=== PATIENT | male | born 1935 | race Asian ===

== ENCOUNTER 2018-01-08 15:46 | Inpatient (IN) | payer OTHER, MEDICAID, MEDICARE ==
[~2018-01-08] VITALS: Ht 154.9 cm; Wt 55.0 kg
[2018-01-08] VITALS (8 sets, daily range): BP systolic 133–159; BP diastolic 63–95; PULSE 70–105; RESP 16–20; TEMP 98.2; O2SAT 95–99
[~2018-01-08 15:46] MED LIST: AUGM875 PO; MECL25 PO; SIMV20 PO; TRIA37.512 PO
[2018-01-08] MEDS ORDERED: SODIUM CHLOR 0.9% 1000 ML INJ 1,000 ML IV SCH ×2 (16:05→21:00)
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
[2018-01-08] MEDS ORDERED: SODIUM CHLORIDE 0.9% FLUSH 10 ML FLUSH IV FLUSH PRN ×2 (16:15→20:30)
[2018-01-08 17:18] LABS: AUTOMATED NEUTROPHIL # 8.2 TH/MM3 (1.8-7.7); BASOPHIL # 0.1 TH/MM3 (0-0.2); BASOPHIL % 0.7 % (0.0-2.0); EOSINOPHIL # 0.3 TH/MM3 (0-0.4); EOSINOPHIL % 2.9 % (0.0-4.0); LYMPH % 5.4 % (9.0-44.0); LYMPHOCYTE # 0.5 TH/MM3 (1.0-4.8); MEAN CELL VOLUME 88.4 FL (80.0-100.0); MEAN CORPUSCULAR HEMOGLOBIN 28.6 PG (27.0-34.0); MEAN CORPUSCULAR HGB CONC 32.4 % (32.0-36.0); MEAN PLATELET VOLUME 9.4 FL (7.0-11.0); MONO % 5.5 % (0.0-8.0); MONOCYTE # 0.5 TH/MM3 (0-0.9); NEUT % 85.5 % (16.0-70.0); PLATELET COUNT 153 TH/MM3 (150-450); RED BLOOD COUNT 4.19 MIL/MM3 (4.50-5.90); RED CELL DISTRIBUTION WIDTH 13.4 % (11.6-17.2); WHITE BLOOD COUNT 9.6 TH/MM3 (4.0-11.0)
--- NOTE | 2018-01-08 17:22 | RADRPT ---
EXAM DATE: 01/08/2018 4:54 PM EDT AGE/SEX: 82 years / Male INDICATIONS: Altered mental status. CLINICAL DATA: This is the patient's initial encounter. Patient reports that signs and symptoms have been present for 1 day and indicates a pain score of Nonresponsive. MEDICAL/SURGICAL HISTORY: Hypertension. Cardiovascular disease. None. RADIATION DOSE: 35.05 CTDI (mGy) COMPARISON: [facility] [place], CT BRAIN W/O CONTRAST, 09/17/2010. . TECHNIQUE: CT of the head without contrast. Using automated exposure control and adjustment of the mA and/or kV according to patient size, radiation dose was kept as low as reasonably achievable to ob tain optimal diagnostic quality images. FINDINGS: Cerebrum: The ventricles are normal for age. No evidence of midline shift, mass lesion, hemorrhage or acute infarction. No extraaxial fluid collections are seen. Posterior Fossa: The cerebellum and brainstem are intact. The 4th ventricle is midline. The cerebe llopontine angle is unremarkable. Extracranial: The visualized portion of the orbits is intact. Skull: The calvaria is intact. No evidence of skull fracture. Mucous retention cyst left maxillary sinus. Mucoperiosteal thickening ethmoid sinuses and right maxillary sinus. CONCLUSION: 1. Negative for acute process Electronically signed by: Ad Garcia MD 01/08/2018 5:20 PM EDT
[2018-01-08 17:28] LABS: ALBUMIN 3.7 GM/DL (3.4-5.0); ALT (GPT) 25 U/L (12-78); AST (GOT) 25 U/L (15-37); BICARBONATE 20.4 MEQ/L (21.0-32.0); BLOOD UREA NITROGEN 32 MG/DL (7-18); CALCIUM 8.2 MG/DL (8.5-10.1); CHLORIDE 111 MEQ/L (98-107); CREATININE 2.36 MG/DL (0.60-1.30); GLOMERULAR FILTRATION RATE 26 ML/MIN (>89); GLUCOSE,RANDOM 110 MG/DL (74-106); SODIUM (NA) 142 MEQ/L (136-145)
[2018-01-08 17:38] LABS: BILIRUBIN, URINE NEG (NEG); BLOOD, URINE SMALL (NEG); GLUCOSE,URINE NEG (NEG); HYALINE CAST, URINE 15 /lpf (RARE); KETONE, URINE TRACE mg/dL (NEG); MUCUS URINE FEW /lpf (OCC); NITRITE,URINE NEG (NEG); URINE COLOR YELLOW (YELLW/STRAW); URINE LEUKOCYTE ESTERASE TRACE (NEG)
[2018-01-08 17:38] LABS: ALKALINE PHOSPHATASE 47 U/L (45-117); TOTAL BILIRUBIN ADULT 0.5 MG/DL (0.2-1.0)
[2018-01-08] MEDS ORDERED: ASPIRIN 81 MG CHEW TAB CHEW ONE (17:45)
--- NOTE | 2018-01-08 18:51 | RADRPT ---
EXAM DATE: 01/08/2018 6:25 PM EDT AGE/SEX: 82 years / Male INDICATIONS: Chest pain CLINICAL DATA: This is the patient's initial encounter. Patient reports that signs and symptoms have been present for 1 day and indicates a pain score of 0/10. MEDICAL/SURGICAL HISTORY: . Hypertension. Cardiovascular disease . COMPARISON: [facility], XR CHEST PA AND LAT, 05/27/2014. . FINDINGS: Portable AP view of the chest demonstrates a normal-sized cardiac silhouette. No effusion, consolidat ion, or pneumothorax is identified. The bones and soft tissues demonstrate no acute finding. EKG line s overlie the patient. There is severe calcification of the aorta. CONCLUSION: No acute cardiopulmonary abnormality is identified. There is severe atherosclerotic disease of the ao rta. Electronically signed by: Joshua Ludwig MD 01/08/2018 6:50 PM EDT
[2018-01-08] MEDS ORDERED: MORPHINE SULFATE 4 MG/ML INJ IV PUSH PRN (20:30)
[2018-01-08] MEDS ORDERED: ACETAMINOPHEN/HYDROcodone 325 MG/7.5 MG TAB PO PRN (20:30)
[2018-01-08] MEDS ORDERED: ACETAMINOPHEN 500 MG CPLT PO PRN (20:30)
[2018-01-08] MEDS ORDERED: HEPARIN SODIUM - SQ 10,000 UNITS/ML VIAL SQ SCH (21:00)
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
[2018-01-08] MEDS: SODIUM CHLORIDE 0.9% FLUSH 10 ML FLUSH IV FLUSH SCH (22:46)
[2018-01-08 23:17] LABS: TROPONIN I 3.96 NG/ML (0.02-0.05)
[2018-01-09] VITALS (15 sets, daily range): BP systolic 142–163; BP diastolic 78–84; PULSE 72–112; RESP 16–18; TEMP 97.4–98.3; O2SAT 98
[2018-01-09] MEDS ORDERED: HEPARIN-D5W 25,000 U/250 ML 250 ML IV PRN
[2018-01-09] MEDS ORDERED: HEPARIN SODIUM - IV 10,000 UNITS/10 ML VIAL IV PUSH ONE
[2018-01-09] MEDS ORDERED: HEPARIN SODIUM - IV 10,000 UNITS/10 ML VIAL IV PUSH PRN ×2 (06:00)
[2018-01-09 06:37] LABS: AUTOMATED NEUTROPHIL # 4.6 TH/MM3 (1.8-7.7); BASOPHIL % 0.7 % (0.0-2.0); EOSINOPHIL # 0.2 TH/MM3 (0-0.4); EOSINOPHIL % 3.6 % (0.0-4.0); HEMATOCRIT 36.1 % (39.0-51.0); HEMOGLOBIN 11.6 GM/DL (13.0-17.0); LYMPH % 13.7 % (9.0-44.0); LYMPHOCYTE # 0.9 TH/MM3 (1.0-4.8); MEAN CELL VOLUME 87.8 FL (80.0-100.0); MEAN CORPUSCULAR HEMOGLOBIN 28.2 PG (27.0-34.0); MEAN CORPUSCULAR HGB CONC 32.1 % (32.0-36.0); MEAN PLATELET VOLUME 9.5 FL (7.0-11.0); MONO % 10.7 % (0.0-8.0); MONOCYTE # 0.7 TH/MM3 (0-0.9); NEUT % 71.3 % (16.0-70.0); PLATELET COUNT 150 TH/MM3 (150-450); RED BLOOD COUNT 4.11 MIL/MM3 (4.50-5.90); RED CELL DISTRIBUTION WIDTH 13.4 % (11.6-17.2); WHITE BLOOD COUNT 6.5 TH/MM3 (4.0-11.0)
[2018-01-09 07:06] LABS: BICARBONATE 20.3 MEQ/L (21.0-32.0); CALCIUM 7.7 MG/DL (8.5-10.1); CREATININE 1.53 MG/DL (0.60-1.30)
[2018-01-09 07:14] LABS: TROPONIN I 6.2 NG/ML (0.02-0.05)
--- NOTE | 2018-01-09 07:24 | EKG ---
Date Performed: 01/09/2018 Time Performed: 04:03:10 PTAGE: 82 years EKG: Sinus rhythm with borderline 1st degree A-V block Lead(s) unsuitable for analysis: V6 Leftward axis Poor R wave p rogression - probable normal variant Borderline ECG Compared to prior electrocardiogram, No significa nt changes are seen although V6 is not available. PREVIOUS TRACING : 01/08/2018 22.19 DOCTOR: Daniele Garcia Interpretating Date/Time 01/09/2018 07:22:57
[2018-01-09] MEDS: SODIUM CHLORIDE 0.9% FLUSH 10 ML FLUSH IV FLUSH SCH (09:00)
--- NOTE | 2018-01-09 11:25 | HHI.PR ---
Subjective Remarks The patient was laying comfortably in bed. Phone chalker soles was utilized. The patient's son was at the bedside. The patient stated that he was in no pain or discomfort in that his heart was strong. He says he would be willing to stay 1 more day in the hospital but wants to go home after that. No acute complaints at this time. Objective Vitals Vital Signs Date Time Temp Pulse Resp B/P (MAP) Pulse Ox O2 Delivery O2 Flow Rate FiO2 01/09/18 07:05 98.3 112 16 149/78 (101) 98 01/09/18 05:00 75 01/09/18 04:00 74 01/09/18 03:27 98.1 72 18 142/81 (101) 98 01/09/18 03:00 74 01/09/18 02:00 74 01/09/18 01:08 01/09/18 01:00 97.4 83 18 163/84 (110) 98 01/08/18 23:30 70 16 151/70 (97) 99 Nasal Cannula 1.00 01/08/18 23:00 72 16 150/68 (95) 99 Nasal Cannula 2.00 01/08/18 20:30 100 17 147/95 (112) 97 Room Air 01/08/18 19:30 102 18 159/84 (109) 99 Room Air 01/08/18 18:00 93 18 150/74 (99) 98 Room Air 01/08/18 17:00 96 18 139/66 (90) 98 Room Air 01/08/18 16:07 105 20 133/63 (86) 95 Room Air 01/08/18 16:05 98.2 01/08/18 16:05 98 Nasal Cannula 2.00 I/O 01/08/18 01/08/18 01/08/18 01/09/18 01/09/18 01/09/18 07:00 15:00 23:00 07:00 15:00 23:00 Intake Total 1000 ml 0 ml Output Total 200 ml Balance 1000 ml -200 ml Intake Oral 0 ml IV Total 1000 ml Output Urine Total 200 ml Result Diagram: 01/09/18 0510 01/09/18 0510 Imaging Last Impressions Head CT 01/08/18 0000 Signed Impressions: CONCLUSION: 1. Negative for acute process Chest X-Ray 01/08/18 0000 Signed Impressions: CONCLUSION: No acute cardiopulmonary abnormality is identified. 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 Objective Remarks GENERAL: No distress. SKIN: No rashes, ecchymoses or lesions. Cool and dry. HEAD: Atraumatic. Normocephalic. No temporal or scalp tenderness. EYES: Pupils equal round and reactive. Extraocular motions intact. No scleral icterus. No injection or drainage. ENT: Nose without bleeding, purulent drainage or septal hematoma. Throat without erythema, tonsillar hypertrophy or exudate. Uvula midline. Airway patent. NECK: Trachea midline. No JVD or lymphadenopathy. Supple, nontender, no meningeal signs. CARDIOVASCULAR: Regular rate and rhythm. Mild murmur appreciated. RESPIRATORY: Clear to auscultation. Breath sounds equal bilaterally. No wheezes , rales, or rhonchi. GASTROINTESTINAL: Abdomen soft, non-tender, nondistended. No hepato-splenomegaly , or palpable masses. No guarding. MUSCULOSKELETAL: Extremities without clubbing, cyanosis, or edema. No joint tenderness, effusion, or edema noted. No calf tenderness. Negative Homans sign bilaterally. NEUROLOGICAL: Awake and alert. Cranial nerves II through XII intact. Motor and sensory within normal limits. Five out of 5 muscle strength in all muscle groups. Normal speech. A/P Assessment and Plan NSTEMI Patient denies any chest pain. Troponin elevated up to 6.2. EKG significant for sinus tachycardia without ST segment elevation or depression. - continue heparin drip. - consulted cardiology. Likely cath today. - continue ASA. Add Lopressor. - check lipid profile, A1c. Acute kidney injury BUN/creatinine 32/2.36. Chronic component as patient's creatinine was 1.39 on . - IV fluid hydration. - Monitor renal function. Altered mental status Likely secondary to above. - IV fluid hydration. HTN Blood pressure has been elevated. - add Lopressor. - Vasotec as needed. PPx: Heparin Rickey Hodges DO Jan 09, 2018 11:25
[2018-01-09] MEDS ORDERED: DEXT 5%-NACL 0.45% 1000 ML INJ 1,000 ML IV SCH (11:30)
[2018-01-09] MEDS ORDERED: METOPROLOL TARTRATE 25 MG TAB PO SCH (12:00)
[2018-01-09] MEDS ORDERED: ASPIRIN EC 81 MG TABEC PO SCH (12:00)
[2018-01-09 13:27] LABS: CHOLESTEROL 204 MG/DL (120-200); TRIGLYCERIDES 89 MG/DL (42-150)
[2018-01-09 13:28] LABS: HDL CHOLESTEROL 45.3 MG/DL (40.0-60.0); LDL CHOLESTEROL 141 MG/DL (0-99)
--- NOTE | 2018-01-09 13:41 | EKG ---
Date Performed: 01/08/2018 Time Performed: 22:19:56 PTAGE: 82 years EKG: Sinus rhythm BORDERLINE LEFT AXIS DEVIATION BORDERLINE ECG Compared to prior electrocardiogram, Nonspecific ST an d T wave abnormalities are less marked . PREVIOUS TRACING : 01/08/2018 16.18 DOCTOR: Daniele Garcia Interpretating Date/Time 01/09/2018 13:39:55
[2018-01-09] MEDS ORDERED: CLOPIDOGREL 300 MG TAB PO ONE (13:45)
[2018-01-09] MEDS ORDERED: PRAVASTATIN SOD 40 MG TAB PO SCH (13:45)
[2018-01-09] MEDS ORDERED: METO25TA3 PO (13:47)
[2018-01-09] MEDS ORDERED: ECASA81 PO (13:47)
[2018-01-09] MEDS ORDERED: PRAV40TA PO (13:47)
[2018-01-09] MEDS ORDERED: PLAV75TA29 PO (13:47)
--- NOTE | 2018-01-09 13:48 | PD.AMA ---
Against Medical Advice Note Diagnosis: (1) NSTEMI (non-ST elevated myocardial infarction) (2) Acute kidney injury Discharge Disposition: Against Medical Advice Pt Condition on Discharge: Guarded Recommended Treatment Course Cardiac catheterization, medication adjustments, cardiac monitoring AMA Statement Patient Luz Maria Castro has decided to leave the hospital against medical advice. This patient has the capacity to refuse care and understands the risks of leaving, including permanent disability and/or , and has had an opportunity to ask questions about his condition. The patient has been informed that he may return for care at any time, and follow up has been arranged/ advised. Rickey Hodges DO Jan 09, 2018 13:48
--- NOTE | 2018-01-09 13:48 | HHI.DCPOC ---
Discharge Care Plan Diagnosis: (1) Acute kidney injury (2) NSTEMI (non-ST elevated myocardial infarction) Goals to Promote Your Health * To prevent worsening of your condition and complications * To maintain your health at the optimal level Directions to Meet Your Goals Take your medications as prescribed Follow your dietary instruction Follow activity as directed Keep your appointments as scheduled Take your immunizations and boosters as scheduled If your symptoms worsen call your PCP, if no PCP go to Urgent Care Center or Emergency Room Smoking is Dangerous to Your Health. Avoid second hand smoke Call the 24-hour hour crisis hotline for domestic abuse at Rickey Hodges DO Jan 09, 2018 13:48
[2018-01-09 14:14] LABS: HEMOGLOBIN A1C 5.8 % (4.3-6.0)
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
[2018-01-10] MEDS ORDERED: CLOPIDOGREL 75 MG TAB PO SCH (09:00)
== END 2018-01-09 14:36 | disposition left against medical advice (07) | DRG 281 ==
LOC: NEPC 15:46 → NEDA 18:06 → HCIS 01-09 00:55
PROVIDERS: ADMIT Hospitalist; ATTEND Hospitalist
DX: I21.4 Non-ST elevation (NSTEMI) myocardial infarction (principal); N17.9 Acute kidney failure, unspecified; E86.0 Dehydration; I10 Essential (primary) hypertension; R00.0 Tachycardia, unspecified; E78.00 Pure hypercholesterolemia, unspecified; R41.82 Altered mental status, unspecified; T67.5XXA Heat exhaustion, unspecified, initial encounter; Z86.73 Personal history of transient ischemic attack (TIA), and cerebral infarction without residual deficits; X30.XXXA Exposure to excessive natural heat, initial encounter
CPT/HCPCS: 70450; 71045; 80048; 80053; 80061; 81001; 82550; 82552; 83036; 83605; 84443; 84484; 85025; 85730; 93005; J1644; J7030

== ENCOUNTER 2018-05-05 23:50 | Inpatient (IN) ==
[2018-05-06] MEDS ORDERED: Famotidine PF Inj 20 MG/2 ML Vial IV.PUSH ONE (00:32)
[2018-05-06] MEDS ORDERED: Sod Chloride 0.9% Inj 1,000 ML IV.SIG ONE (00:32)
[2018-05-06 00:58] LABS: Baso % (Auto) 0.6 % (0.0-2.0); Eos # (Auto) 0.3 th/mm3 (0.0-0.4); Eos % (Auto) 4.4 % (0.0-4.0); Hematocrit 37.7 % (39.0-51.0); Hemoglobin 12.5 gm/dL (13.0-17.0); Lymph # (Auto) 1.4 th/mm3 (1.0-4.8); Lymph % (Auto) 18.5 % (9.0-44.0); Mean Corpuscular HGB Conc 33.2 % (32.0-36.0); Mean Corpuscular Volume 87.5 fL (80.0-100.0); Mono # (Auto) 0.5 th/mm3 (0.0-0.9); Mono % (Auto) 6.7 % (0.0-8.0); Neut # (Auto) 5.3 th/mm3 (1.8-7.7); Neut % (Auto) 69.8 % (16.0-70.0); Platelet Count 158 th/mm3 (150-450); Red Cell Distribution Width 13.9 % (11.6-17.2); White Blood Count 7.5 th/mm3 (4.0-11.0)
--- NOTE | 2018-05-06 01:02 | ED ---
HPI General Chief complaint: Nausea/Vomiting/Diarrhea Stated complaint: chest pain/sob Time Seen by Provider: 05/06/18 00:17 Source: family Mode of arrival: EMS Limitations: language barrier History of Present Illness HPI Narrative: Take for the last few days patient has not had much medical care to having chest pain was given nitro and aspirin in the ambulance twelve-lead had shown possible depressions in the V4 5 and 6 that resolved after the nitro sublingual. He is here in the ER still vomiting and nauseous BP elevated and one episode after vomit had brief bardycardic reaction but no AMS no Hypotension, pt has vomitus in the green bag bedside Related Data Home Medications Medication Instructions Recorded Confirmed No Known Home Medications 05/06/18 05/06/18 Allergies Allergy/AdvReac Type Severity Reaction Status Date / Time No Known Allergies Allergy Verified 05/06/18 01:18 Review of Systems ROS: all other systems reviewed are negative [facility] Medical History Medical History HTN (hypertension) (Acute) Surgical History Surgical History No history of previous surgery (Acute) Social History Social History Substance History: No History of Abuse Smoking Status: Never smoker How Often Do You Have a Drink Containing Alcohol: Never Recent Out of Country Travel within the Last 8 Weeks: No Immunization History Tetanus Immunization: Unsure Exam Narrative Exam Narrative: GENERAL: Appears in pain and is vomiting coffee-ground SKIN: Warm and dry. HEAD: Atraumatic. Normocephalic. EYES: Pupils equal and round. No scleral icterus. No injection or drainage. ENT: No nasal bleeding or discharge. Mucous membranes pink and moist. NECK: Trachea midline. No JVD. CARDIOVASCULAR: Regular rate and rhythm. RESPIRATORY: No accessory muscle use. Clear to auscultation. Breath sounds equal bilaterally. GASTROINTESTINAL: Abdomen soft, non-tender, nondistended. Hepatic and splenic margins not palpable. MUSCULOSKELETAL: Extremities without clubbing, cyanosis, or edema. No obvious deformities. NEUROLOGICAL: Awake and alert. No obvious cranial nerve deficits. Motor grossly within normal limits. Five out of 5 muscle strength in the arms and legs. Normal speech. PSYCHIATRIC: Appropriate mood and affect; insight and judgment normal. Course Initial Documented Vital Signs Temperature 98.3 F 05/06/18 00:20 Pulse Rate 77 05/06/18 00:20 Respiratory Rate 18 05/06/18 00:20 Blood Pressure 199/88 H 05/06/18 00:20 Pulse Oximetry 94 L 05/06/18 00:20 Last Documented Vital Signs Temperature 98.3 F 05/06/18 00:20 Pulse Rate 90 05/06/18 04:56 Respiratory Rate 16 05/06/18 04:56 Blood Pressure 165/74 H 05/06/18 04:56 Pulse Oximetry 95 05/06/18 04:56 Medical Decision Making MDM Narrative Medical decision making narrative: EKG unchanged and trop negative and vomit and BP resolved Medical Screen Exam Complete: Yes Emergency Medical Condition: Yes Differential Diagnosis Differential Diagnosis: n/v/d/ viral vs gerd vs food poisoning vs ACS vs myocardial ischemia , other Medical Records Medical records reviewed: Yes I reviewed the patient's medical records. Lab Data Lab results reviewed: Yes I reviewed the patient's lab results. Result diagrams: 05/06/18 00:30 05/06/18 00:30 Lab Results 05/06/18 05/06/18 Range/Units 00:30 00:30 WBC 7.5 (4.0-11.0) th/mm3 RBC 4.30 L (4.50-5.90) mil/mm3 Hgb 12.5 L (13.0-17.0) gm/dL Hct 37.7 L (39.0-51.0) % MCV 87.5 (80.0-100.0) fL MCH 29.0 (27.0-34.0) pg MCHC 33.2 (32.0-36.0) % RDW 13.9 (11.6-17.2) % Plt Count 158 (150-450) th/mm3 MPV 9.0 (7.0-11.0) fL Neut % (Auto) 69.8 (16.0-70.0) % Lymph % (Auto) 18.5 (9.0-44.0) % [place] % (Auto) 6.7 (0.0-8.0) % Eos % (Auto) 4.4 H (0.0-4.0) % Baso % (Auto) 0.6 (0.0-2.0) % Neut # (Auto) 5.3 (1.8-7.7) th/mm3 Lymph # (Auto) 1.4 (1.0-4.8) th/mm3 [place] # (Auto) 0.5 (0.0-0.9) th/mm3 Eos # (Auto) 0.3 (0.0-0.4) th/mm3 Baso # (Auto) 0.0 (0.0-0.2) th/mm3 WBC Differential . Differential Comment Auto diff final Sodium 139 (136-145) meq/L Potassium 3.9 (3.5-5.1) meq/L Chloride 107 (98-107) meq/L Carbon Dioxide 23.6 (21.0-32.0) meq/L Anion Gap 8 (5-15) meq/L BUN 22 H (7-18) mg/dL Creatinine 1.49 H (0.60-1.30) mg/dL Estimated GFR 45 L (>89) mL/min Random Glucose 189 H (74-106) mg/dL Calcium 7.8 L (8.5-10.1) mg/dL Total Bilirubin 0.4 (0.2-1.0) mg/dL AST 20 (15-37) U/L ALT 28 (12-78) U/L Alkaline Phosphatase 51 (45-117) U/L Troponin I Less than 0.02 L (0.02-0.05) ng/mL Total Protein 7.4 (6.4-8.2) g/dL Albumin 3.7 (3.4-5.0) g/dL Imaging Data Radiologist's impression: Chest X-Ray 05/06/18 00:24 CONCLUSION: No acute cardiopulmonary disease. Discharge Plan Physicians Team ED Provider: Terell Gallo Primary Care Provider: Nicolás Espinoza Attending Provider: Tramaine Pierson Status ED Status: Admitted Observation Patient
[2018-05-06 01:28] LABS: Albumin 3.7 g/dL (3.4-5.0); Anion Gap 8 meq/L (5-15); Aspartate Aminotransferase 20 U/L (15-37); Blood Urea Nitrogen 22 mg/dL (7-18); Calcium 7.8 mg/dL (8.5-10.1); Carbon Dioxide 23.6 meq/L (21.0-32.0); Chloride 107 meq/L (98-107); Glomerular Filtration Rate 45 mL/min (>89); Glucose,Random 189 mg/dL (74-106); Potassium 3.9 meq/L (3.5-5.1); Sodium 139 meq/L (136-145)
--- NOTE | 2018-05-06 01:29 | XR ---
EXAM DATE: 05/06/2018 12:24 AM EDT AGE/SEX: 83 years / Male INDICATIONS: Shortness of breath. CLINICAL DATA: This is the patient's initial encounter. Patient reports that signs and symptoms have been present for 1 day and indicates a pain score of 0/10. MEDICAL/SURGICAL HISTORY: None. None. COMPARISON: [facility] [place], CHEST SINGLE AP, 01/08/2018. . FINDINGS: A single AP view of the chest demonstrates elevation right hemidiaphragm without evidence of mass, in filtrate or effusion. The cardiomediastinal contours are unremarkable. Cardiomegaly. Osseous structu res are intact. CONCLUSION: No acute cardiopulmonary disease. Electronically signed by: Roel Dc MD 05/06/2018 1:28 AM EDT
[2018-05-06 01:33] LABS: Alanine Aminotransferase 28 U/L (12-78); Alkaline Phosphatase 51 U/L (45-117); Total Protein 7.4 g/dL (6.4-8.2)
[2018-05-06] MEDS ORDERED: Labetalol HCl Inj 100 MG/20 ML Vial IV.PUSH ONE (03:04)
[2018-05-06] MEDS ORDERED: Sodium Chlor 0.9% Inj 500 ML IV.SIG ONE (03:22)
[2018-05-06] MEDS: Sod Chloride 0.9% Inj 1,000 ML IV.CONT SCH ×2 (05:00→16:35)
[2018-05-06] MEDS ORDERED: Pantoprazole Inj 40 MG Vial IV.PUSH SCH (07:00)
--- NOTE | 2018-05-06 11:33 | ECG ---
Date Performed: 05/06/2018 Time Performed: 00:40:45 PTAGE: 83 years EKG: Sinus rhythm WITH FIRST DEGREE AV BLOCK MODERATE ST DEPRESSION ABNORMAL ECG Cannot rule out ischemia clinical cor relation recommended (patient appears to have had a GI bleed and may be anemic) PREVIOUS TRACING : 01/09/2018 04.03 DOCTOR: Tramaine Pierson Interpretating Date/Time 05/06/2018 11:31:20
--- NOTE | 2018-05-06 12:02 | P.HP ---
History of Present Illness Primary Care Physician: Nicolás Espinoza MD Chief Complaint: Nausea/vomit and diarrhea, Chest pain and SOB History of Present Illness: This is a pleasant 83 y/o male who was seen in Emergency room due to Chest pain , given nitroglycerine, Aspirin in the Ambulance, twelve-lead had shown possible depressions in the V4 5 and 6 that resolved after the nitro sublingual. He is here in the ER still vomiting and nauseous BP elevated and one episode after vomit had brief bradycardic reaction but no AMS no Hypotension, pt has vomitus in the green bag bedside. was recommended for admission to the Chest pain clinic and after evaluation by sales account specialist Doctor Tramaine Pierson, recommended to be admitted to medical team with the reason of bleeding and Altered mental status, he has Hypertension. Seen in Emergency room discussed with Doctor Moreira and his Daughter and Grandson , present they help with the translation and also with information about the patient History, as per his Daughter the patient started with cough on meaning four days ago took some Guaifenesin until Monday meaning three days ago he was improving but yesterday Monday started with Constipation, and developed Nausea, vomit and Abdominal pain, nausea and vomit, discussed with nurse the patient has copious vomit and blood. Review of Systems All other systems reviewed negative except as stated in HPI PMFSH - History History Provided By: Family Member - Medical History Medical History: Medical History (Last Updated 05/06/18 @ 00:47 by Nara Durham) HTN (hypertension) - Surgical History Surgical History: Surgical History (Last Updated 05/06/18 @ 00:49 by Nara Durham) No history of previous surgery - Family History Family History: Family History (Last Updated 05/06/18 @ 12:52 by Issac Miller MD) Other Family history normal - Tobacco History Smoking Status: Never smoker - Alcohol History How Often Do You Have a Drink Containing Alcohol: Never - Substance Use History Substance History: No History of Abuse - Travel History Recent Travel Out of the Country Within the Last 8 Weeks: No - Immunization History Tetanus Immunization: Unsure Medications and Allergies Active Medications: Active Medications Acetaminophen (Tylenol) 650 mg PO Q4H PRN PRN Reason: FEVER > 100.4 F Sodium Chloride (Ns Inj) 1,000 mls @ 100 mls/hr IV.CONT .Q10H SHANIA Last Infusion: 05/06/18 08:20 Dose: 100 mls/hr Ondansetron HCl (Zofran Inj) 4 mg IV.PUSH Q6H PRN PRN Reason: VOMITING Pantoprazole Sodium (Protonix Inj) 40 mg IV.PUSH Q12H [facility] Last Admin: 05/06/18 08:09 Dose: 40 mg Sodium Chloride (Ns Flush) 2 ml IV.FLUSH UNSCH PRN PRN Reason: FLUSH AFTER USING IV ACCESS Last Admin: 05/06/18 01:08 Dose: 2 ml Sodium Chloride (Ns Flush) 2 ml IV.FLUSH BID [facility] Last Admin: 05/06/18 08:09 Dose: 2 ml Allergies Allergy/AdvReac Type Severity Reaction Status Date / Time No Known Allergies Allergy Verified 05/06/18 01:18 Home Medications Medication Instructions Recorded Confirmed Type No Known Home Medications 05/06/18 05/06/18 History Exam Vital signs: Vital Signs 05/06/18 00:20 05/06/18 00:24 05/06/18 02:27 Temperature 98.3 F Pulse Rate 77 86 Respiratory Rate 18 16 Blood Pressure 199/88 H 212/91 H Pulse Oximetry 94 L 100 95 05/06/18 02:28 05/06/18 04:56 05/06/18 07:11 Temperature Pulse Rate 90 94 H Respiratory Rate 16 16 18 Blood Pressure 165/74 H 163/77 H Pulse Oximetry 95 98 05/06/18 10:00 05/06/18 11:37 05/06/18 11:51 Temperature 98.3 F Pulse Rate 94 H Respiratory Rate 18 20 Blood Pressure 176/81 H 152/78 H Pulse Oximetry 98 Intake & Output 05/05/18 05/06/18 05/06/18 18:59 06:59 18:59 Intake Total 1500 / 1500 Output Total 750 / 750 Balance 1500 / 1500 -750 / -750 Weight 63.503 kg Intake: IV 1500 / 1500 NS Inj 500 ML @ Wide Open IV. 500 / 500 SIG BOLUS ONE Rx#:[id number] Output: Urine 750 / 750 Narrative: GENERAL: moderate distress, due to pain, Headache, dizziness, vomiting coffee ground. SKIN: Warm and dry. HEAD: Atraumatic. Normocephalic. EYES: Pupils equal and round. No scleral icterus. No injection or drainage. ENT: No nasal bleeding or discharge. Mucous membranes dry. NECK: Trachea midline. No JVD. CARDIOVASCULAR: Regular rate and rhythm. RESPIRATORY: No accessory muscle use. Clear to auscultation. Breath sounds equal bilaterally. GASTROINTESTINAL: Abdomen soft, non-tender, nondistended. Hepatic and splenic margins not palpable. MUSCULOSKELETAL: Extremities without clubbing, cyanosis, or edema. No obvious deformities. NEUROLOGICAL: Awake and alert. No obvious cranial nerve deficits. PSYCHIATRIC: Appropriate mood and affect; insight and judgment normal. Results - Labs CBC & Chem 7: 05/06/18 00:30 05/06/18 00:30 Labs: Laboratory Results - last 24 hr 05/06/18 05/06/18 05/06/18 00:30 00:30 05:50 WBC 7.5 RBC 4.30 L Hgb 12.5 L Hct 37.7 L MCV 87.5 MCH 29.0 MCHC 33.2 RDW 13.9 Plt Count 158 MPV 9.0 Neut % (Auto) 69.8 Lymph % (Auto) 18.5 [place] % (Auto) 6.7 Eos % (Auto) 4.4 H Baso % (Auto) 0.6 Neut # (Auto) 5.3 Lymph # (Auto) 1.4 [place] # (Auto) 0.5 Eos # (Auto) 0.3 Baso # (Auto) 0.0 WBC Differential . Differential Comment Auto diff final Sodium 139 Potassium 3.9 Chloride 107 Carbon Dioxide 23.6 Anion Gap 8 BUN 22 H Creatinine 1.49 H Estimated GFR 45 L Random Glucose 189 H Calcium 7.8 L Total Bilirubin 0.4 AST 20 ALT 28 Alkaline Phosphatase 51 Troponin I Less than 0.02 L 0.02 Total Protein 7.4 Albumin 3.7 05/06/18 09:30 WBC RBC Hgb Hct MCV MCH MCHC RDW Plt Count MPV Neut % (Auto) Lymph % (Auto) [place] % (Auto) Eos % (Auto) Baso % (Auto) Neut # (Auto) Lymph # (Auto) [place] # (Auto) Eos # (Auto) Baso # (Auto) WBC Differential Differential Comment Sodium Potassium Chloride Carbon Dioxide Anion Gap BUN Creatinine Estimated GFR Random Glucose Calcium Total Bilirubin AST ALT Alkaline Phosphatase Troponin I 0.03 Total Protein Albumin - Imaging Impressions Chest X-Ray 05/06/18 00:24 CONCLUSION: No acute cardiopulmonary disease. Caprini VTE Risk Assessment Caprini VTE Risk Assessment: Moderate/High Risk (score >= 2) Caprini Risk Assessment Model: Point Value = 1 Point Value = 2 Point Value = 3 Point Value = 5 Age 41-60 Minor surgery BMI > 25 kg/m2 Swollen legs Varicose veins or History of unexplained or recurrent spontaneous Oral contraceptives or hormone replacement Sepsis (< 1 month) Serious lung disease, including pneumonia (< 1 month) Abnormal pulmonary function Acute myocardial infarction Congestive heart failure (< 1 month) History of inflammatory bowel disease Medical patient at bed rest Age 61-74 Arthroscopic surgery Major open surgery (> 45 min) Laparoscopic surgery (> 45 min) Malignancy Confined to bed (> 72 hours) Immobilizing plaster cast Central venous access Age >= 75 History of VTE Family history of VTE Factor V Leiden Prothrombin [id number] Lupus anticoagulant Anticardiolipin antibodies Elevated serum homocysteine Heparin-induced thrombocytopenia Other congenital or acquired thrombophilia Stroke (< 1 month) Elective arthroplasty Hip, pelvis, or leg fracture Acute spinal cord injury (< 1 month) Prophylaxis Regimen: Total Risk Factor Score Risk Level Prophylaxis Regimen 0-1 Low Early ambulation 2 Moderate Order ONE of the following: *Sequential Compression Device (SCD) *Heparin 5000 units SQ BID 3-4 Higher Order ONE of the following medications: *Heparin 5000 units SQ TID *Enoxaparin/Lovenox 40 mg SQ daily (WT < 150 kg, CrCl > 30 mL/min) *Enoxaparin/Lovenox 30 mg SQ daily (WT < 150 kg, CrCl > 10-29 mL/min) *Enoxaparin/Lovenox 30 mg SQ BID (WT < 150 kg, CrCl > 30 mL/min) AND/OR *Sequential Compression Device (SCD) 5 or more Highest Order ONE of the following medications: *Heparin 5000 units SQ TID (Preferred with Epidurals) *Enoxaparin/Lovenox 40 mg SQ daily (WT < 150 kg, CrCl > 30 mL/min) *Enoxaparin/Lovenox 30 mg SQ daily (WT < 150 kg, CrCl > 10-29 mL/min) *Enoxaparin/Lovenox 30 mg SQ BID (WT < 150 kg, CrCl > 30 mL/min) AND *Sequential Compression Device (SCD) Assessment and Plan - Plan 1. GI bleed, patient with Abdominal pain, nausea and vomit, dehydration. not know cause for his GI bleed Given Protonix 40 mg yesterday night, will give one dose of Protonix 40 mg now and continue Protonix drip GI specialist consult placed and discussed face to face CT abdomen and Pelvis with contrast NPO H and H now and CMP at this time WBC 7.5, Hemoglobin 12.5 initially, Platelet count 158, Creatinine 1.49 2. Hypertension Uncontrolled on admission continue Home medicines and Hydralazine as needed. 3. BRANDY probable almost at baseline, will give IV fluids and follow renal function, Creatinine 1.49 following CMP and H and H now. 4. Cough initial I want to rule out pathology he had clear lungs on CXR will follow with CT chest. 5. Dehydration giving one bolus of 500 ml now and continue 100 ml per hour. 6. CAD status post recent diagnosis with NSTEMI but the patient refused Cardiac Cath. Cardiology saw the patient who complaint of chest pain, will continue Cardiac enzymes, first three sets negative latest 0.06 equivocal due to dehydration. DVT prophylaxis with SCDs. Contraindicated anticoagulation due to active GI bleed PT evaluation store operations manager consult Consult GI specialist Code Status: Full code. Discussed Condition With: Patient and nurse. Daughter Mrs. Brittney Castro leaving her phone number [phone] 's Daughter phone number [phone] GI specialist Doctor Randy Discharge Planning: Once cleared by specialists.
[2018-05-06] MEDS ORDERED: Pantoprazole Inj 40 MG Vial IV.PUSH ONE (12:36)
[2018-05-06] MEDS ORDERED: Diatrizoate Meglum/Diatrizoate Sod Liq 9 ML UDC PO ONE ×2 (12:38→12:50)
[2018-05-06] MEDS ORDERED: Bisacodyl 10 MG Supp RECTAL PRN (12:39)
[2018-05-06] MEDS ORDERED: Sod Chloride 0.9% Inj 1,000 ML IV.CONT SCH (12:45)
[2018-05-06] MEDS ORDERED: Sodium Chlor 0.9% Inj 500 ML IV.SIG SCH (13:00)
[2018-05-06] MEDS: Pantoprazole Inj 80 MG in Sodium Chlor 0.9% Inj 100 ML IV.CONT SCH ×2 (13:57→23:46)
[2018-05-06 14:31] LABS: Hematocrit 33.7 % (39.0-51.0); Hemoglobin 11.3 gm/dL (13.0-17.0)
[2018-05-06 14:54] LABS: Albumin 3.3 g/dL (3.4-5.0); Calcium 7.1 mg/dL (8.5-10.1); Carbon Dioxide 24.6 meq/L (21.0-32.0)
[2018-05-06 15:15] LABS: Total Protein 6.7 g/dL (6.4-8.2); Troponin I 0.11 ng/mL (0.02-0.05)
--- NOTE | 2018-05-06 16:15 | P.CONGI ---
History of Present Illness Consult date: 05/06/18 Consult reason: Vomiting dark emesis rule out GI bleed, coffee-ground emesis Chief complaint: chest pain N/V History of Present Illness: This is an 83-year-old male who presented to the emergency room initially for chest pain and was treated with nitroglycerin. Positive mild troponin elevation on admission. Patient also noted symptoms of nausea and vomiting as well as 1 emesis bag with dark possibly coffee-ground emesis. Onset of symptoms of nausea vomiting abdominal pain and constipation often known for 1 day, but also notes a history of constipation in the past 1 of the chief complaint is cough times 4 days related to after eating, after drinking, and while at rest. Patient was initially taken guaifenesin multiple times and then was noted was some altered mental status. Labs show current hemoglobin 12.5, normal WBC count 7.5, BUN 22, creatinine 1.49, and initial elevated troponin. CT scan of abdomen pelvis is pending. Gastroenterology was consulted to assist with possible GI bleed, GI symptoms and evaluate plan of care to stabilize this patient. There is her grandson here with patient and according to him patient lives with his aunt, patient's daughter. No known EGD or colonoscopy in years or any family history of colon cancer Review of Systems All other systems reviewed negative except as stated in HPI PMFSH - History History Provided By: Patient, Family Member - Medical History Medical History: Medical History (Last Updated 05/06/18 @ 14:51 by Fabiola Perez RN) HTN (hypertension) Hypercholesterolemia - Surgical History Surgical History: Surgical History (Last Updated 05/06/18 @ 00:49 by Nara Durham) No history of previous surgery - Family History Family History: Family History (Last Updated 05/06/18 @ 12:52 by Issac Miller MD) Other Family history normal - Tobacco History Second Hand Smoke Exposure: No Tobacco Use In Past 30 Days: No Smoking Status: Former smoker Tobacco Type: Cigarettes - Alcohol History How Often Do You Have a Drink Containing Alcohol: Never - Substance Use History Substance History: No History of Abuse - Travel History Recent Travel in the [facility] Within the Last 8 Weeks: No Recent Travel Out of the Country Within the Last 8 Weeks: No - Immunization History Tetanus Immunization: Unsure Medications and Allergies Active Medications: Active Medications Acetaminophen (Tylenol) 650 mg PO Q4H PRN PRN Reason: FEVER > 100.4 F Al Hydroxide/Mg Hydroxide (Milk Of Magnesia Liq) 30 ml PO Q12H PRN PRN Reason: Mild Constipation Bisacodyl (Dulcolax Supp) 10 mg RECTAL DAILY PRN PRN Reason: SEVERE CONSITIPATION Sodium Chloride (Ns Inj) 1,000 mls @ 100 mls/hr IV.CONT .Q10H [facility] Last Infusion: 05/06/18 08:20 Dose: 100 mls/hr Sodium Chloride (Ns Inj) 500 mls @ 0 mls/hr IV.SIG BOLUS SHANIA Pantoprazole Sodium 80 mg/ (Sodium Chloride) 100 mls @ 10 mls/hr IV.CONT CONT [facility] Last Admin: 05/06/18 13:57 Dose: 10 mls/hr Calcium Gluconate 1 gm/ (Dextrose) 110 mls @ 110 mls/hr IV.SIG ONCE ONE Stop: 05/06/18 17:59 Lactulose (Lactulose Liq) 30 ml PO DAILY PRN PRN Reason: SEVERE CONSITIPATION Ondansetron HCl (Zofran Inj) 4 mg IV.PUSH Q4H PRN PRN Reason: VOMITING Last Admin: 05/06/18 14:00 Dose: 4 mg Sennosides (Senokot) 17.2 mg PO Q12H PRN PRN Reason: Moderate Constipation Sodium Chloride (Ns Flush) 2 ml IV.FLUSH UNSCH PRN PRN Reason: FLUSH AFTER USING IV ACCESS Last Admin: 05/06/18 01:08 Dose: 2 ml Sodium Chloride (Ns Flush) 2 ml IV.FLUSH BID [facility] Last Admin: 05/06/18 08:09 Dose: 2 ml Allergies Allergy/AdvReac Type Severity Reaction Status Date / Time No Known Allergies Allergy Verified 05/06/18 01:18 Home Medications Medication Instructions Recorded Confirmed Type No Known Home Medications 05/06/18 05/06/18 History Exam Vital signs: Vital Signs 05/06/18 00:20 05/06/18 00:24 05/06/18 02:27 Temperature 98.3 F Pulse Rate 77 86 Respiratory Rate 18 16 Blood Pressure 199/88 H 212/91 H Pulse Oximetry 94 L 100 95 05/06/18 02:28 05/06/18 04:56 05/06/18 07:11 Temperature Pulse Rate 90 94 H Respiratory Rate 16 16 18 Blood Pressure 165/74 H 163/77 H Pulse Oximetry 95 98 05/06/18 10:00 05/06/18 11:35 05/06/18 11:37 Temperature 98.3 F Pulse Rate 94 H 94 H Respiratory Rate 18 20 Blood Pressure 176/81 H Pulse Oximetry 98 05/06/18 11:51 05/06/18 15:01 Temperature Pulse Rate 84 Respiratory Rate Blood Pressure 152/78 H Pulse Oximetry Intake & Output 05/05/18 05/06/18 05/06/18 18:59 06:59 18:59 Intake Total 1500 / 1500 Output Total 750 / 750 Balance 1500 / 1500 -750 / -750 Weight 63.503 kg 63.503 kg Intake: IV 1500 / 1500 NS Inj 500 ML @ Wide Open IV. 500 / 500 SIG BOLUS ONE Rx#:[id number] Output: Urine 750 / 750 Other: Weight On Admission 63.503 kg - Constitutional no acute distress, thin, cachectic, disheveled, cooperative - Routine HEENT Exam Head: Present: normocephalic ENT: Present: mucous membranes dry - Routine Respiratory Exam Present: accessory muscle use (Even, unlabored) - Routine Cardiovascular Exam Present: S1, S2 - Routine Abdominal Exam Present: soft, normoactive bowel sounds (Soft, no tenderness) - Routine Skin Exam Present: intact, pallor (Pale) Results - Labs CBC & Chem 7: 05/06/18 13:42 05/06/18 13:42 Labs: Laboratory Results - last 24 hr 05/06/18 05/06/18 05/06/18 00:30 00:30 05:50 WBC 7.5 RBC 4.30 L Hgb 12.5 L Hct 37.7 L MCV 87.5 MCH 29.0 MCHC 33.2 RDW 13.9 Plt Count 158 MPV 9.0 Neut % (Auto) 69.8 Lymph % (Auto) 18.5 [place] % (Auto) 6.7 Eos % (Auto) 4.4 H Baso % (Auto) 0.6 Neut # (Auto) 5.3 Lymph # (Auto) 1.4 [place] # (Auto) 0.5 Eos # (Auto) 0.3 Baso # (Auto) 0.0 WBC Differential . Differential Comment Auto diff final Sodium 139 Potassium 3.9 Chloride 107 Carbon Dioxide 23.6 Anion Gap 8 BUN 22 H Creatinine 1.49 H Estimated GFR 45 L Random Glucose 189 H Calcium 7.8 L Prot Corrected Calcium Total Bilirubin 0.4 AST 20 ALT 28 Alkaline Phosphatase 51 Total Creatine Kinase Troponin I Less than 0.02 L 0.02 Total Protein 7.4 Albumin 3.7 05/06/18 05/06/18 05/06/18 09:30 11:29 13:42 WBC RBC Hgb Hct MCV MCH MCHC RDW Plt Count MPV Neut % (Auto) Lymph % (Auto) [place] % (Auto) Eos % (Auto) Baso % (Auto) Neut # (Auto) Lymph # (Auto) [place] # (Auto) Eos # (Auto) Baso # (Auto) WBC Differential Differential Comment Sodium Potassium Chloride Carbon Dioxide Anion Gap BUN Creatinine Estimated GFR Random Glucose Calcium Prot Corrected Calcium Total Bilirubin AST ALT Alkaline Phosphatase Total Creatine Kinase Cancelled Troponin I 0.03 0.06 H Cancelled Total Protein Albumin 05/06/18 05/06/18 13:42 13:42 WBC RBC Hgb 11.3 L Hct 33.7 L MCV MCH MCHC RDW Plt Count MPV Neut % (Auto) Lymph % (Auto) [place] % (Auto) Eos % (Auto) Baso % (Auto) Neut # (Auto) Lymph # (Auto) [place] # (Auto) Eos # (Auto) Baso # (Auto) WBC Differential Differential Comment Sodium 139 Potassium 4.0 Chloride 106 Carbon Dioxide 24.6 Anion Gap 8 BUN 17 Creatinine 1.32 H Estimated GFR 52 L Random Glucose 117 H Calcium 7.1 L* Prot Corrected Calcium 7.3 L* Total Bilirubin 0.5 AST 20 ALT 23 Alkaline Phosphatase 44 L Total Creatine Kinase 170 Troponin I 0.11 H Total Protein 6.7 D Albumin 3.3 L - Imaging Impressions Chest X-Ray 05/06/18 00:24 CONCLUSION: No acute cardiopulmonary disease. Assessment and Plan - Plan 83-year-old male who presented to the emergency room initially for chest pain and was treated with nitroglycerin. Positive mild troponin elevation on admission. Patient also noted symptoms of nausea and vomiting as well as 1 emesis bag with dark possibly coffee-ground emesis. Onset of symptoms of nausea vomiting abdominal pain and constipation often known for 1 day, but also notes a history of constipation in the past 1 of the chief complaint is cough times 4 days related to after eating, after drinking, and while at rest. Patient was initially taken guaifenesin multiple times and then was noted was some altered mental status. Labs show current hemoglobin 12.5, normal WBC count 7.5, BUN 22, creatinine 1.49, and initial elevated troponin. CT scan of abdomen pelvis is pending. Gastroenterology was consulted to assist with possible GI bleed, GI symptoms and evaluate plan of care to stabilize this patient. There is her grandson here with patient and according to him patient lives with his aunt, patient's daughter. No noted EGD or colonoscopy in years GI bleed possible coffee-ground emesis x1 event Mild anemia hemoglobin 12.5, no current obvious bleeding Uncontrolled cough aggravated with drinking eating and even at rest, rule out dysphasia and/or aspiration Elevated troponin, and an initial admission related to chest pain. Patient will need to be evaluated per cardiology and any cardiac event needs to be ruled out before any further GI testing. Abdominal pain history of constipation, CT scan of the abdomen pelvis is pending this too needs to be evaluated for further before any further GI testing is done Plan Diet as tolerated , consult speech therapy to evaluate swallow. Need to rule out any high risk for aspiration, dysphasia. PPI Zofran Bowel regimen Cardiology eval rule out any acute cardiac event CT of the abdomen and pelvis is pending Consider EGD once patient is stable Further recommendations to follow Patient was seen per myself and Dr. Santos, note was written on his behalf
[2018-05-06] MEDS ORDERED: Calcium Gluconate Inj 1 GM in Dextrose 5% in Water Inj 100 ML IV.SIG ONE ×2 (17:00)
--- NOTE | 2018-05-06 18:46 | CT ---
EXAM DATE: 05/06/2018 12:38 PM EDT AGE/SEX: 83 years / Male INDICATIONS: Shortness of breath. CLINICAL DATA: This is the patient's initial encounter. Patient reports that signs and symptoms have been present for 1 day and indicates a pain score of Nonresponsive. MEDICAL/SURGICAL HISTORY: . unobtainable . unobtainable RADIATION DOSE: 5.1 CTDI (mGy) ; Combined studies COMPARISON: [facility], CHEST 1V SINGLE AP, 05/06/2018. . TECHNIQUE: Multiple contiguous axial images were obtained through the chest during bolus infusion of 95 ml Omnipaque 350 (iohexol) nonionic water-soluble contrast as a cumulative dose for multiple exa ms. Images were obtained in suspended respiration using multiple row detector helical technique. U sing automated exposure control and adjustment of the mA and/or kV according to patient size, radiati on dose was kept as low as reasonably achievable to obtain optimal diagnostic quality images. DICOM format image data is available electronically for review and comparison. FINDINGS: Lung: Airspace consolidation at the right lung base with air bronchograms. Pleura: No effusion, significant pleural thickening or pneumothorax. Mediastinum: Borderline cardiomegaly. Prominent coronary artery calcifications. Very central pulmona ry arteries are patent. Ectasia of the ascending thoracic aorta measuring up to 3.9 cm. No significan t mediastinal or hilar adenopathy. Osseous Structures: No abnormal focal lytic or blastic bony lesions. Soft Tissues: Soft tissues are unremarkable. No significant axillary adenopathy. Other: Please see CT abdomen report for abdominal findings. CONCLUSION: 1. Focal airspace consolidation with air bronchograms in the right lung base. Cannot exclude pneumon ia or aspiration in the appropriate clinical setting. 2. Borderline cardiomegaly with prominent coronary artery calcifications. 3. Very central pulmonary arteries are patent without evidence for central pulmonary artery embolism . Please note that this is not a PE protocol CT exam. Electronically signed by: Ronen Daly MD 05/06/2018 6:45 PM EDT
--- NOTE | 2018-05-06 18:50 | CT ---
EXAM DATE: 05/06/2018 12:00 AM EDT AGE/SEX: 83 years / Male INDICATIONS: Abdominal pain. CLINICAL DATA: This is the patient's initial encounter. Patient reports that signs and symptoms have been present for 1 day and indicates a pain score of Nonresponsive. MEDICAL/SURGICAL HISTORY: . unobtainable . unobtainable ORAL CONTRAST: Partial prescribed oral contrast ingested. RADIATION DOSE: 5.1 CTDI (mGy) ; Combined studies COMPARISON: No prior exams available for comparison. TECHNIQUE: Multiple contiguous axial images were obtained through the abdomen and pelvis following b olus infusion of 95 ml Omnipaque 350 (iohexol) nonionic water-soluble contrast as a cumulative dose for multiple exams. Partial prescribed oral contrast ingested. Using automated exposure control and adjustment of the mA and/or kV according to patient size, radiation dose was kept as low as reasonab ly achievable to obtain optimal diagnostic quality images. DICOM format image data is available elec tronically for review and comparison. FINDINGS: There is basilar and dependent opacity in the lungs, probably atelectasis. Moderate to severe coronar y artery calcifications. Mild fatty liver. Spleen, adrenals and pancreas unremarkable. Small bilateral renal cysts. No calcified gallstones or biliary ductal dilatation. Mild constipation. No free air or free fluid. N o adenopathy. Atherosclerotic aorta without aneurysm. No acute bony abnormality. CONCLUSION: 1. No acute findings within the abdomen and pelvis. Dependent atelectasis in the lungs. Severe coron sussy calcifications. Mild fatty liver. No obstruction, free fluid or free air. Electronically signed by: Yehuda La MD 05/06/2018 6:49 PM EDT
[2018-05-06] MEDS: Acetaminophen 325 MG Tablet PO PRN (18:59)
[2018-05-06 19:54] LABS: Troponin I 0.16 ng/mL (0.02-0.05)
[2018-05-07] MEDS: Sod Chloride 0.9% Inj 1,000 ML IV.CONT SCH ×3 (05:19→18:18)
[2018-05-07 06:35] LABS: Baso % (Auto) 0.3 % (0.0-2.0); Eos # (Auto) 0.1 th/mm3 (0.0-0.4); Eos % (Auto) 0.8 % (0.0-4.0); Hematocrit 34.4 % (39.0-51.0); Hemoglobin 11.5 gm/dL (13.0-17.0); Lymph # (Auto) 0.9 th/mm3 (1.0-4.8); Lymph % (Auto) 13.2 % (9.0-44.0); Mean Corpuscular HGB Conc 33.5 % (32.0-36.0); Mean Corpuscular Hemoglobin 29.3 pg (27.0-34.0); Mean Corpuscular Volume 87.4 fL (80.0-100.0); Mean Platelet Volume 8.8 fL (7.0-11.0); Mono # (Auto) 0.6 th/mm3 (0.0-0.9); Mono % (Auto) 8.8 % (0.0-8.0); Neut # (Auto) 5.2 th/mm3 (1.8-7.7); Neut % (Auto) 76.9 % (16.0-70.0); Platelet Count 143 th/mm3 (150-450); Red Blood Count 3.94 mil/mm3 (4.50-5.90); Red Cell Distribution Width 13.8 % (11.6-17.2); White Blood Count 6.8 th/mm3 (4.0-11.0)
[2018-05-07 07:29] LABS: Albumin 3.2 g/dL (3.4-5.0); Calcium 7.2 mg/dL (8.5-10.1); Carbon Dioxide 24.7 meq/L (21.0-32.0); Potassium 3.3 meq/L (3.5-5.1); Total Protein 6.5 g/dL (6.4-8.2)
[2018-05-07] MEDS: Pantoprazole Inj 80 MG in Sodium Chlor 0.9% Inj 100 ML IV.CONT SCH ×2 (10:52→20:29)
--- NOTE | 2018-05-07 11:42 | P.CONCA ---
History of Present Illness Service: Cardiology Consult date: 05/07/18 Requesting Physician: Issac Miller Reason for Consult: Cardiac clearance for EGD and colonoscopy Primary Care Provider: Nicolás Espinoza MD Chief Complaint: Nausea/vomit and diarrhea, Chest pain and SOB History of Present Illness: This is a very pleasant 83-year-old male with a history of hypertension and coronary artery disease. Who came to the emergency department with complaints of chest pain, nausea and vomiting. Per his chart he was given a nitro sublingual in route to the emergency department by EMS which relieved his chest pain. He is currently positive for gastrointestinal bleeding. Currently he does complain of mild midsternal chest pain that increases with deep inspiration and left sided chest pain that increases with palpation. He had one episode this morning of chest pain that was relieved by nitro. He denies any palpitations, dizziness, edema or shortness of breath. Review of Systems All other systems reviewed negative except as stated in HPI PMFSH - History History Provided By: Patient, Family Member - Medical History Medical History: Medical History (Last Reviewed 05/07/18 @ 14:48 by Ha Espinosa, PT) HTN (hypertension) Hypercholesterolemia - Surgical History Surgical History: Surgical History (Last Reviewed 05/07/18 @ 14:48 by Ha Espinosa PT) No history of previous surgery - Family History Family History: Family History (Last Reviewed 05/07/18 @ 14:48 by Ha Espinosa, PT) Other Family history normal - Tobacco History Second Hand Smoke Exposure: No Tobacco Use In Past 30 Days: No Smoking Status: Former smoker Tobacco Type: Cigarettes - Alcohol History How Often Do You Have a Drink Containing Alcohol: Never - Substance Use History Substance History: No History of Abuse - Travel History Recent Travel in the [place] Within the Last 8 Weeks: No Recent Travel Out of the Country Within the Last 8 Weeks: No - Immunization History Tetanus Immunization: Unsure Medications and Allergies Allergies Allergy/AdvReac Type Severity Reaction Status Date / Time No Known Allergies Allergy Verified 05/06/18 01:18 Home Medications Medication Instructions Recorded Confirmed Type No Known Home Medications 05/06/18 05/06/18 History Active Medications: Active Medications Acetaminophen (Tylenol) 650 mg PO Q4H PRN PRN Reason: FEVER > 100.4 F Last Admin: 05/06/18 18:59 Dose: 650 mg Al Hydroxide/Mg Hydroxide (Milk Of Magnesia Liq) 30 ml PO Q12H PRN PRN Reason: Mild Constipation Bisacodyl (Dulcolax Supp) 10 mg RECTAL DAILY PRN PRN Reason: SEVERE CONSITIPATION Sodium Chloride (Ns Inj) 1,000 mls @ 100 mls/hr IV.CONT .Q10H [facility] Last Admin: 05/07/18 09:28 Dose: Not Given Sodium Chloride (Ns Inj) 500 mls @ 0 mls/hr IV.SIG BOLUS [facility] Pantoprazole Sodium 80 mg/ (Sodium Chloride) 100 mls @ 10 mls/hr IV.CONT CONT [facility] Last Admin: 05/07/18 10:52 Dose: 10 mls/hr Lactulose (Lactulose Liq) 30 ml PO DAILY PRN PRN Reason: SEVERE CONSITIPATION Nitroglycerin (Nitrostat Sl) 0.4 mg SL Q5M PRN PRN Reason: CHEST PAIN Last Admin: 05/07/18 09:27 Dose: 0.4 mg Ondansetron HCl (Zofran Inj) 4 mg IV.PUSH Q4H PRN PRN Reason: VOMITING Last Admin: 05/06/18 19:00 Dose: 4 mg Sennosides (Senokot) 17.2 mg PO Q12H PRN PRN Reason: Moderate Constipation Sodium Chloride (Ns Flush) 2 ml IV.FLUSH UNSCH PRN PRN Reason: FLUSH AFTER USING IV ACCESS Last Admin: 05/06/18 01:08 Dose: 2 ml Sodium Chloride (Ns Flush) 2 ml IV.FLUSH BID [facility] Last Admin: 05/07/18 11:11 Dose: 2 ml Exam Vital signs: Vital Signs 05/06/18 11:35 05/06/18 11:37 05/06/18 11:51 Temperature 98.3 F Pulse Rate 94 H 94 H Respiratory Rate 20 Blood Pressure 176/81 H 152/78 H Pulse Oximetry 98 05/06/18 15:01 05/06/18 16:00 05/06/18 20:00 Temperature 98.7 F 98.0 F Pulse Rate 84 77 81 Respiratory Rate 18 18 Blood Pressure 169/74 H 170/78 H Pulse Oximetry 95 95 05/06/18 23:00 05/07/18 00:00 05/07/18 01:00 Temperature 97.8 F Pulse Rate 75 74 70 Respiratory Rate 18 Blood Pressure 157/79 H Pulse Oximetry 97 05/07/18 02:00 05/07/18 03:00 05/07/18 03:47 Temperature Pulse Rate 66 63 69 Respiratory Rate 16 Blood Pressure 139/69 Pulse Oximetry 96 05/07/18 04:00 05/07/18 05:00 05/07/18 06:00 Temperature Pulse Rate 64 80 62 Respiratory Rate Blood Pressure Pulse Oximetry 05/07/18 07:00 05/07/18 08:00 05/07/18 09:00 Temperature 98.2 F Pulse Rate 66 89 88 Respiratory Rate 20 Blood Pressure 145/71 H Pulse Oximetry 97 Intake & Output 05/06/18 05/07/18 05/07/18 18:59 06:59 18:59 Intake Total 1323 / 1323 1160 / 1160 100 / 100 Output Total 750 / 750 400 / 400 Balance 573 / 573 760 / 760 100 / 100 Weight 63.503 kg 56 kg Intake: IV 850 / 850 1160 / 1160 100 / 100 Protonix Inj 80 MG In NS Inj 100 / 100 100 / 100 100 ML @ 10 mls/hr IV.CONT CONT [facility] Rx#:[id number] NS Inj 1,000 ML @ 100 mls/hr IV 800 / 800 1000 / 1000 .CONT .Q10H [facility] Rx#:[id number] Calcium Gluconate Inj 1 GM In 50 / 50 60 / 60 D5W Inj 100 ML @ 110 mls/hr IV. SIG ONCE ONE Rx#:[id number] Oral 473 / 473 0 / 0 Output: Urine 750 / 750 400 / 400 Other: # Voids 3 # Emeses 3 Weight On Admission 63.503 kg - Constitutional no acute distress - Routine HEENT Exam Head: Present: normocephalic Eye: Present: PERRL ENT: Present: mucous membranes moist - Routine Neck Exam Present: full ROM - Routine Respiratory Exam Present: CTA bilaterally - Routine Cardiovascular Exam Present: S1, S2. Absent: murmur, gallop, rubs - Routine Abdominal Exam Present: normoactive bowel sounds - Routine Extremities Exam Present: full ROM, pulses intact, normal capillary refill. Absent: cyanosis, clubbing, edema - Routine Skin Exam Present: intact - Routine Neurological Exam Present: oriented X3 Results 05/07/18 05:32 05/07/18 05:32 Cardiac Enzymes 05/06/18 05/06/18 05/06/18 Range/Units 00:30 05:50 09:30 AST 20 (15-37) U/L Troponin I Less than 0.02 L 0.02 0.03 (0.02-0.05) ng/mL 05/06/18 05/06/18 05/06/18 Range/Units 11:29 13:42 13:42 AST 20 (15-37) U/L Troponin I 0.06 H Cancelled 0.11 H (0.02-0.05) ng/mL 05/06/18 05/07/18 05/07/18 Range/Units 19:15 01:08 05:32 AST 21 (15-37) U/L Troponin I 0.16 H 0.25 H (0.02-0.05) ng/mL CBC 05/06/18 05/06/18 05/07/18 Range/Units 00:30 13:42 05:32 WBC 7.5 6.8 (4.0-11.0) th/mm3 RBC 4.30 L 3.94 L (4.50-5.90) mil/mm3 Hgb 12.5 L 11.3 L 11.5 L (13.0-17.0) gm/dL Hct 37.7 L 33.7 L 34.4 L (39.0-51.0) % Plt Count 158 143 L (150-450) th/mm3 Neut # (Auto) 5.3 5.2 (1.8-7.7) th/mm3 Lymph # (Auto) 1.4 0.9 L (1.0-4.8) th/mm3 [place] # (Auto) 0.5 0.6 (0.0-0.9) th/mm3 Eos # (Auto) 0.3 0.1 (0.0-0.4) th/mm3 Baso # (Auto) 0.0 0.0 (0.0-0.2) th/mm3 Comprehensive Metabolic Panel 05/06/18 05/06/18 05/07/18 Range/Units 00:30 13:42 05:32 Sodium 139 139 137 (136-145) meq/L Potassium 3.9 4.0 3.3 L (3.5-5.1) meq/L Chloride 107 106 103 (98-107) meq/L Carbon Dioxide 23.6 24.6 24.7 (21.0-32.0) meq/L BUN 22 H 17 17 (7-18) mg/dL Creatinine 1.49 H 1.32 H 1.49 H (0.60-1.30) mg/dL Calcium 7.8 L 7.1 L* 7.2 L* (8.5-10.1) mg/dL AST 20 20 21 (15-37) U/L ALT 28 23 21 (12-78) U/L Alkaline Phosphatase 51 44 L 42 L (45-117) U/L Total Protein 7.4 6.7 D 6.5 (6.4-8.2) g/dL Albumin 3.7 3.3 L 3.2 L (3.4-5.0) g/dL Intake and Output 05/06/18 05/07/18 05/07/18 22:59 06:59 14:59 Intake Total 1383 / 1383 1100 / 1100 100 / 100 Output Total 400 / 400 Balance 1383 / 1383 700 / 700 100 / 100 Intake: IV 910 / 910 1100 / 1100 100 / 100 Protonix Inj 80 MG In NS Inj 100 / 100 100 / 100 100 ML @ 10 mls/hr IV.CONT CONT [facility] Rx#:[id number] NS Inj 1,000 ML @ 100 mls/hr IV 800 / 800 1000 / 1000 .CONT .Q10H [facility] Rx#:[id number] Calcium Gluconate Inj 1 GM In 110 / 110 D5W Inj 100 ML @ 110 mls/hr IV. SIG ONCE ONE Rx#:[id number] Oral 473 / 473 0 / 0 Output: Urine 400 / 400 Other: # Voids 3 # Emeses 3 Weight 63.503 kg 56 kg Weight On Admission 63.503 kg - Imaging and Cardiology Imaging: Impressions Abdomen/Pelvis CT 05/06/18 00:00 CONCLUSION: 1. No acute findings within the abdomen and pelvis. Dependent atelectasis in the lungs. Severe coronary calcifications. Mild fatty liver. No obstruction, free fluid or free air. Chest X-Ray 05/06/18 00:24 CONCLUSION: No acute cardiopulmonary disease. Chest CT 05/06/18 12:38 CONCLUSION: 1. Focal airspace consolidation with air bronchograms in the right lung base. Cannot exclude pneumonia or aspiration in the appropriate clinical setting. 2. Borderline cardiomegaly with prominent coronary artery calcifications. 3. Very central pulmonary arteries are patent without evidence for central pulmonary artery embolism. Please note that this is not a PE protocol CT exam. Assessment and Plan - Assessment (1) GI bleed Code(s): K92.2 - Gastrointestinal hemorrhage, unspecified Status: Acute (2) NSTEMI (non-ST elevated myocardial infarction) Code(s): I21.4 - Non-ST elevation (NSTEMI) myocardial infarction Status: Acute (3) Hypertension Code(s): I10 - Essential (primary) hypertension Status: Acute - Plan Troponin levels are trending, consistent with recent NSTEMI. Patient refused cardiac cath during his last hospitalization. He expressed wishes to leave the hospital. Recommend therapy for angina and recent NSTEMI including aggressive risk factor modification. Due to high risk for cardiac complications, we will be unable to clear the patient for any invasive procedure. Patient was seen and evaluated by Dr. Youngblood who participated in care, management and decision making. - Attending Attestation Patient seen and examined. I reviewed and agree with the evaluation and plan as presented. Continue post [place] management. High risk of cardiac complications with any invasive procedure. D/w patients son and daughter.
--- NOTE | 2018-05-07 14:01 | ECG ---
Date Performed: 05/06/2018 Time Performed: 11:34:45 PTAGE: 83 years EKG: Sinus rhythm MODERATE ST DEPRESSION ABNORMAL ECG PREVIOUS TRACING : 05/06/2018 09.26 Since previous tracing, no significant change noted DOCTOR: Charlie Schmid Interpretating Date/Time 05/07/2018 14:00:19
--- NOTE | 2018-05-07 14:01 | ECG ---
Date Performed: 05/06/2018 Time Performed: 09:26:30 PTAGE: 83 years EKG: Sinus rhythm ARM LEADS REVERSED ATYPICAL ECG PREVIOUS TRACING : 05/06/2018 00.40 DOCTOR: Charlie Schmid Interpretating Date/Time 05/07/2018 14:00:05
--- NOTE | 2018-05-07 15:20 | P.PNGI ---
Subjective Interval history: Laying almost flat in the bed without any shortness of breath and no facial grimace. No abdominal pain no nausea no vomiting No obvious bleeding current hemoglobin 11.5 platelet count 143 <Ophelia Lozano Abel - Last Filed: 05/07/18 15:28> Physical Exam Vital signs: Vital Signs 05/06/18 16:00 05/06/18 20:00 05/06/18 23:00 Temperature 98.7 F 98.0 F Pulse Rate 77 81 75 Respiratory Rate 18 18 Blood Pressure 169/74 H 170/78 H Pulse Oximetry 95 95 05/07/18 00:00 05/07/18 01:00 05/07/18 02:00 Temperature 97.8 F Pulse Rate 74 70 66 Respiratory Rate 18 Blood Pressure 157/79 H Pulse Oximetry 97 05/07/18 03:00 05/07/18 03:47 05/07/18 04:00 Temperature Pulse Rate 63 69 64 Respiratory Rate 16 Blood Pressure 139/69 Pulse Oximetry 96 05/07/18 05:00 05/07/18 06:00 05/07/18 07:00 Temperature Pulse Rate 80 62 66 Respiratory Rate Blood Pressure Pulse Oximetry 05/07/18 08:00 05/07/18 09:00 05/07/18 10:00 Temperature 98.2 F Pulse Rate 89 88 76 Respiratory Rate 20 Blood Pressure 145/71 H Pulse Oximetry 97 05/07/18 11:00 05/07/18 12:00 05/07/18 13:00 Temperature Pulse Rate 70 80 70 Respiratory Rate 18 Blood Pressure 151/75 H Pulse Oximetry 99 05/07/18 14:00 Temperature Pulse Rate 97 H Respiratory Rate Blood Pressure Pulse Oximetry Intake & Output 05/06/18 05/07/18 05/07/18 18:59 06:59 18:59 Intake Total 1323 / 1323 1160 / 1160 100 / 100 Output Total 750 / 750 400 / 400 Balance 573 / 573 760 / 760 100 / 100 Weight 63.503 kg 56 kg Intake: IV 850 / 850 1160 / 1160 100 / 100 Protonix Inj 80 MG In NS Inj 100 / 100 100 / 100 100 ML @ 10 mls/hr IV.CONT CONT [facility] Rx#:[id number] NS Inj 1,000 ML @ 100 mls/hr IV 800 / 800 1000 / 1000 .CONT .Q10H [facility] Rx#:[id number] Calcium Gluconate Inj 1 GM In 50 / 50 60 / 60 D5W Inj 100 ML @ 110 mls/hr IV. SIG ONCE ONE Rx#:[id number] Oral 473 / 473 0 / 0 Output: Urine 750 / 750 400 / 400 Other: # Voids 3 # Emeses 3 Weight On Admission 63.503 kg - Constitutional no acute distress, chronically ill appearing (Elderly), cooperative - Routine HEENT Exam Head: Present: normocephalic ENT: Present: mucous membranes moist - Routine Respiratory Exam Present: accessory muscle use (Even, unlabored at rest) - Routine Cardiovascular Exam Present: S1, S2 - Routine Abdominal Exam Present: soft, normoactive bowel sounds (No abdominal pain no tenderness, no nausea no vomiting) - Routine Skin Exam Present: intact <Ophelia Lozano - Last Filed: 05/07/18 15:28> Vital signs: Vital Signs 05/06/18 23:00 05/07/18 00:00 05/07/18 01:00 Temperature 97.8 F Pulse Rate 75 74 70 Respiratory Rate 18 Blood Pressure 157/79 H Pulse Oximetry 97 05/07/18 02:00 05/07/18 03:00 05/07/18 03:47 Temperature Pulse Rate 66 63 69 Respiratory Rate 16 Blood Pressure 139/69 Pulse Oximetry 96 05/07/18 04:00 05/07/18 05:00 05/07/18 06:00 Temperature Pulse Rate 64 80 62 Respiratory Rate Blood Pressure Pulse Oximetry 05/07/18 07:00 05/07/18 08:00 05/07/18 09:00 Temperature 98.2 F Pulse Rate 66 89 88 Respiratory Rate 20 Blood Pressure 145/71 H Pulse Oximetry 97 05/07/18 10:00 05/07/18 11:00 05/07/18 12:00 Temperature Pulse Rate 76 70 80 Respiratory Rate 18 Blood Pressure 151/75 H Pulse Oximetry 99 05/07/18 13:00 05/07/18 14:00 05/07/18 15:00 Temperature Pulse Rate 70 97 H 60 Respiratory Rate Blood Pressure Pulse Oximetry 05/07/18 16:00 05/07/18 17:00 05/07/18 18:00 Temperature Pulse Rate 62 64 60 Respiratory Rate 20 Blood Pressure 161/81 H Pulse Oximetry 97 05/07/18 20:00 Temperature 97.5 F L Pulse Rate 93 H Respiratory Rate 20 Blood Pressure 198/77 H Pulse Oximetry 95 Intake & Output 05/07/18 05/07/18 05/08/18 06:59 18:59 06:59 Intake Total 1160 / 1160 1300 / 1300 100 / 100 Output Total 400 / 400 500 / 500 Balance 760 / 760 800 / 800 100 / 100 Weight 56 kg Intake: IV 1160 / 1160 1100 / 1100 100 / 100 Protonix Inj 80 MG In NS Inj 100 / 100 100 / 100 100 / 100 100 ML @ 10 mls/hr IV.CONT CONT [facility] Rx#:[id number] NS Inj 1,000 ML @ 100 mls/hr IV 1000 / 1000 1000 / 1000 0 / 0 .CONT .Q10H [facility] Rx#:[id number] Calcium Gluconate Inj 1 GM In 60 / 60 D5W Inj 100 ML @ 110 mls/hr IV. SIG ONCE ONE Rx#:[id number] Oral 0 / 0 200 / 200 Output: Urine 400 / 400 500 / 500 Other: Date of Last Bowel Movement 05/07/18 <Alex Lindsey E - Last Filed: 05/07/18 20:37> Results - Labs CBC & Chem 7: 05/07/18 05:32 05/07/18 05:32 Laboratory Results - last 24 hr 05/06/18 05/06/18 05/07/18 13:42 19:15 01:08 WBC RBC Hgb Hct MCV MCH MCHC RDW Plt Count MPV Neut % (Auto) Lymph % (Auto) Collin % (Auto) Eos % (Auto) Baso % (Auto) Neut # (Auto) Lymph # (Auto) Collin # (Auto) Eos # (Auto) Baso # (Auto) WBC Differential Differential Comment Sodium Potassium Chloride Carbon Dioxide Anion Gap BUN Creatinine Estimated GFR Random Glucose Calcium Prot Corrected Calcium 7.3 L* Total Bilirubin 0.5 AST ALT Alkaline Phosphatase 44 L Total Creatine Kinase 170 255 Troponin I 0.11 H 0.16 H 0.25 H Total Protein 6.7 D Albumin 05/07/18 05/07/18 05:32 05:32 WBC 6.8 RBC 3.94 L Hgb 11.5 L Hct 34.4 L MCV 87.4 MCH 29.3 MCHC 33.5 RDW 13.8 Plt Count 143 L MPV 8.8 Neut % (Auto) 76.9 H Lymph % (Auto) 13.2 Collin % (Auto) 8.8 H Eos % (Auto) 0.8 Baso % (Auto) 0.3 Neut # (Auto) 5.2 Lymph # (Auto) 0.9 L Collin # (Auto) 0.6 Eos # (Auto) 0.1 Baso # (Auto) 0.0 WBC Differential . Differential Comment Auto diff final Sodium 137 Potassium 3.3 L Chloride 103 Carbon Dioxide 24.7 Anion Gap 9 BUN 17 Creatinine 1.49 H Estimated GFR 45 L Random Glucose 114 H Calcium 7.2 L* Prot Corrected Calcium 7.5 L Total Bilirubin 0.8 AST 21 ALT 21 Alkaline Phosphatase 42 L Total Creatine Kinase Troponin I Total Protein 6.5 Albumin 3.2 L - Imaging Impressions Abdomen/Pelvis CT 05/06/18 00:00 CONCLUSION: 1. No acute findings within the abdomen and pelvis. Dependent atelectasis in the lungs. Severe coronary calcifications. Mild fatty liver. No obstruction, free fluid or free air. Chest CT 05/06/18 12:38 CONCLUSION: 1. Focal airspace consolidation with air bronchograms in the right lung base. Cannot exclude pneumonia or aspiration in the appropriate clinical setting. 2. Borderline cardiomegaly with prominent coronary artery calcifications. 3. Very central pulmonary arteries are patent without evidence for central pulmonary artery embolism. Please note that this is not a PE protocol CT exam. <Ophelia Lozano - Last Filed: 05/07/18 15:28> - Labs CBC & Chem 7: 05/07/18 05:32 05/07/18 05:32 Laboratory Results - last 24 hr 05/07/18 05/07/18 05/07/18 01:08 05:32 05:32 WBC 6.8 RBC 3.94 L Hgb 11.5 L Hct 34.4 L MCV 87.4 MCH 29.3 MCHC 33.5 RDW 13.8 Plt Count 143 L MPV 8.8 Neut % (Auto) 76.9 H Lymph % (Auto) 13.2 Collin % (Auto) 8.8 H Eos % (Auto) 0.8 Baso % (Auto) 0.3 Neut # (Auto) 5.2 Lymph # (Auto) 0.9 L Collin # (Auto) 0.6 Eos # (Auto) 0.1 Baso # (Auto) 0.0 WBC Differential . Differential Comment Auto diff final Sodium 137 Potassium 3.3 L Chloride 103 Carbon Dioxide 24.7 Anion Gap 9 BUN 17 Creatinine 1.49 H Estimated GFR 45 L Random Glucose 114 H Calcium 7.2 L* Prot Corrected Calcium 7.5 L Total Bilirubin 0.8 AST 21 ALT 21 Alkaline Phosphatase 42 L Troponin I 0.25 H B-Natriuretic Peptide Total Protein 6.5 Albumin 3.2 L 05/07/18 05:32 WBC RBC Hgb Hct MCV MCH MCHC RDW Plt Count MPV Neut % (Auto) Lymph % (Auto) Collin % (Auto) Eos % (Auto) Baso % (Auto) Neut # (Auto) Lymph # (Auto) Collin # (Auto) Eos # (Auto) Baso # (Auto) WBC Differential Differential Comment Sodium Potassium Chloride Carbon Dioxide Anion Gap BUN Creatinine Estimated GFR Random Glucose Calcium Prot Corrected Calcium Total Bilirubin AST ALT Alkaline Phosphatase Troponin I B-Natriuretic Peptide 406 H Total Protein Albumin <Alex Lindsey E - Last Filed: 05/07/18 20:37> Assessment and Plan - Plan 83-year-old male who presented to the emergency room initially for chest pain and was treated with nitroglycerin. Positive mild troponin elevation on admission. Patient also noted symptoms of nausea and vomiting as well as 1 emesis bag with dark possibly coffee-ground emesis. Onset of symptoms of nausea vomiting abdominal pain and constipation often known for 1 day, but also notes a history of constipation in the past 1 of the chief complaint is cough times 4 days related to after eating, after drinking, and while at rest. Patient was initially taken guaifenesin multiple times and then was noted was some altered mental status. Labs show current hemoglobin 12.5, normal WBC count 7.5, BUN 22, creatinine 1.49, and initial elevated troponin. CT scan of abdomen pelvis is pending. Gastroenterology was consulted to assist with possible GI bleed, GI symptoms and evaluate plan of care to stabilize this patient. There is her grandson here with patient and according to him patient lives with his aunt, patient's daughter. No noted EGD or colonoscopy in years GI bleed possible coffee-ground emesis x1 event Mild anemia hemoglobin 12.5, no current obvious bleeding Uncontrolled cough aggravated with drinking eating and even at rest, rule out dysphasia and/or aspiration Elevated troponin, and an initial admission related to chest pain. Patient will need to be evaluated per cardiology and any cardiac event needs to be ruled out before any further GI testing. Abdominal pain history of constipation, CT scan of the abdomen pelvis is pending this too needs to be evaluated for further before any further GI testing is done 05/07/2018 mild fatty liver seen on CT scan. GI symptoms of nausea and vomiting and abdominal pain are controlled without symptoms today. Son is in the room with the patient. Discussed with son and daughter on the phone update which included patient refusing cardiac catheterization. Currently gastroenterology has no clearance for any further GI testing. Daughter states that her father does understand and is competent to make decisions but states that she and her family members do want him to have further testing. Encouraged all family members to meet together with the patient and discuss further his wishes going forward recommend palliative care to assist. Currently GI will treat medical management and defer for any GI testing unless there is cardiac clearance. According to staff patient is having no problems with cough or swallowing with thin liquids or food today. Appreciate cardiac input. Continue on Protonix drip for now Plan Diet as tolerated , monitor for any cough or swallow issues PPI drip Zofran Bowel regimen Speech therapy consult to evaluate swallow pending Consider EGD if patient and family agrees and there is cardiac clearance Further recommendations to follow Patient was seen per myself and Dr. Lindsey, note was written on his behalf <Ophelia Lozano - Last Filed: 05/07/18 15:28> - Plan Patient seen and examined Agree with above history and physical Continue with current supportive care Monitor labs <Alex Lindsey - Last Filed: 05/07/18 20:37>
--- NOTE | 2018-05-07 18:57 | P.PNIM ---
Subjective Interval history: Long discussion with patient and family using over the phone [employer] policy analyst. Patient is alert and oriented x4. He refuses cardiac catheterization. He says he is very afraid of having any procedure done which may affect his heart. Physical Exam Vital signs: Vital Signs 05/06/18 20:00 05/06/18 23:00 05/07/18 00:00 Temperature 98.0 F 97.8 F Pulse Rate 81 75 74 Respiratory Rate 18 18 Blood Pressure 170/78 H 157/79 H Pulse Oximetry 95 97 05/07/18 01:00 05/07/18 02:00 05/07/18 03:00 Temperature Pulse Rate 70 66 63 Respiratory Rate Blood Pressure Pulse Oximetry 05/07/18 03:47 05/07/18 04:00 05/07/18 05:00 Temperature Pulse Rate 69 64 80 Respiratory Rate 16 Blood Pressure 139/69 Pulse Oximetry 96 05/07/18 06:00 05/07/18 07:00 05/07/18 08:00 Temperature 98.2 F Pulse Rate 62 66 89 Respiratory Rate 20 Blood Pressure 145/71 H Pulse Oximetry 97 05/07/18 09:00 05/07/18 10:00 05/07/18 11:00 Temperature Pulse Rate 88 76 70 Respiratory Rate Blood Pressure Pulse Oximetry 05/07/18 12:00 05/07/18 13:00 05/07/18 14:00 Temperature Pulse Rate 80 70 97 H Respiratory Rate 18 Blood Pressure 151/75 H Pulse Oximetry 99 05/07/18 15:00 05/07/18 16:00 05/07/18 17:00 Temperature Pulse Rate 60 62 64 Respiratory Rate 20 Blood Pressure 161/81 H Pulse Oximetry 97 05/07/18 18:00 Temperature Pulse Rate 60 Respiratory Rate Blood Pressure Pulse Oximetry Intake & Output 05/06/18 05/07/18 05/07/18 18:59 06:59 18:59 Intake Total 1323 / 1323 1160 / 1160 1300 / 1300 Output Total 750 / 750 400 / 400 500 / 500 Balance 573 / 573 760 / 760 800 / 800 Weight 63.503 kg 56 kg Intake: IV 850 / 850 1160 / 1160 1100 / 1100 Protonix Inj 80 MG In NS Inj 100 / 100 100 / 100 100 ML @ 10 mls/hr IV.CONT CONT [facility] Rx#:[id number] NS Inj 1,000 ML @ 100 mls/hr IV 800 / 800 1000 / 1000 1000 / 1000 .CONT .Q10H [facility] Rx#:[id number] Calcium Gluconate Inj 1 GM In 50 / 50 60 / 60 D5W Inj 100 ML @ 110 mls/hr IV. SIG ONCE ONE Rx#:[id number] Oral 473 / 473 0 / 0 200 / 200 Output: Urine 750 / 750 400 / 400 500 / 500 Other: # Voids 3 # Emeses 3 Weight On Admission 63.503 kg Narrative: GENERAL: Patient sitting up in bed. Appears comfortable. Alert and oriented x4. SKIN: Warm and dry. HEAD: Atraumatic. Normocephalic. EYES: Pupils equal and round. No scleral icterus. No injection or drainage. ENT: No nasal bleeding or discharge. Mucous membranes dry. NECK: Trachea midline. No JVD. CARDIOVASCULAR: Regular rate and rhythm. RESPIRATORY: No accessory muscle use. Clear to auscultation. Breath sounds equal bilaterally. GASTROINTESTINAL: Abdomen soft, non-tender, nondistended. Hepatic and splenic margins not palpable. MUSCULOSKELETAL: Extremities without clubbing, cyanosis, or edema. No obvious deformities. NEUROLOGICAL: Awake and alert. No obvious cranial nerve deficits. PSYCHIATRIC: Appropriate mood and affect; insight and judgment normal. Results - Labs CBC & Chem 7: 05/07/18 05:32 05/07/18 05:32 Laboratory Results - last 24 hr 05/06/18 05/07/18 05/07/18 19:15 01:08 05:32 WBC 6.8 RBC 3.94 L Hgb 11.5 L Hct 34.4 L MCV 87.4 MCH 29.3 MCHC 33.5 RDW 13.8 Plt Count 143 L MPV 8.8 Neut % (Auto) 76.9 H Lymph % (Auto) 13.2 [place]asper % (Auto) 8.8 H Eos % (Auto) 0.8 Baso % (Auto) 0.3 Neut # (Auto) 5.2 Lymph # (Auto) 0.9 L [place] # (Auto) 0.6 Eos # (Auto) 0.1 Baso # (Auto) 0.0 WBC Differential . Differential Comment Auto diff final Sodium Potassium Chloride Carbon Dioxide Anion Gap BUN Creatinine Estimated GFR Random Glucose Calcium Prot Corrected Calcium Total Bilirubin AST ALT Alkaline Phosphatase Total Creatine Kinase 255 Troponin I 0.16 H 0.25 H B-Natriuretic Peptide Total Protein Albumin 05/07/18 05/07/18 05:32 05:32 WBC RBC Hgb Hct MCV MCH MCHC RDW Plt Count MPV Neut % (Auto) Lymph % (Auto) [place] % (Auto) Eos % (Auto) Baso % (Auto) Neut # (Auto) Lymph # (Auto) [place] # (Auto) Eos # (Auto) Baso # (Auto) WBC Differential Differential Comment Sodium 137 Potassium 3.3 L Chloride 103 Carbon Dioxide 24.7 Anion Gap 9 BUN 17 Creatinine 1.49 H Estimated GFR 45 L Random Glucose 114 H Calcium 7.2 L* Prot Corrected Calcium 7.5 L Total Bilirubin 0.8 AST 21 ALT 21 Alkaline Phosphatase 42 L Total Creatine Kinase Troponin I B-Natriuretic Peptide 406 H Total Protein 6.5 Albumin 3.2 L - Imaging Impressions Abdomen/Pelvis CT 05/06/18 00:00 CONCLUSION: 1. No acute findings within the abdomen and pelvis. Dependent atelectasis in the lungs. Severe coronary calcifications. Mild fatty liver. No obstruction, free fluid or free air. Assessment and Plan - Plan //GI bleed, patient with Abdominal pain, nausea and vomit, dehydration. not know cause for his GI bleed Given Protonix 40 mg yesterday night, will give one dose of Protonix 40 mg now and continue Protonix drip GI specialist consult placed and discussed face to face CT abdomen and Pelvis with contrast NPO H and H now and CMP at this time WBC 7.5, Hemoglobin 12.5 initially, Platelet count 158, Creatinine 1.49 = Hemoglobin overall stable. Patient refuses any kind of intervention currently. Continue PPI. //NSTEMI //Hypertension Uncontrolled on admission continue Home medicines and Hydralazine as needed. = Troponin up to 0.25. Cardiology consulted. Patient refuses cardiac catheterization. = It appears that patient thought that his blood pressure was okay and stop some blood pressure medications. We will need home medications reconciled. = We will start Coreg. Avoid aspirin secondary to suspected GI bleed. //BRANDY probable almost at baseline, will give IV fluids and follow renal function , Creatinine 1.49 following CMP and H and H now. //Cough initial I want to rule out pathology he had clear lungs on CXR will follow with CT chest. = Patient reports that cough has resolved. Small airspace consolidation on CT. No signs of infection. Monitor. Will need repeat imaging. //Dehydration giving one bolus of 500 ml now and continue 100 ml per hour. = Nausea has resolved. Stop IV fluids. Monitor. //CAD status post recent diagnosis with NSTEMI but the patient refused Cardiac Cath. Cardiology saw the patient who complaint of chest pain, will continue Cardiac enzymes, first three sets negative latest 0.06 equivocal due to dehydration. Discharge Planning: Patient refuses cardiac catheterization, EGD. Pending stability, may go home tomorrow. Will need beta-alfredo, blood pressure control, PPI for suspected ulcer. Patient will benefit from home health nurse for medication management as he reports to have stopped some medications due to controlled blood pressure.
[2018-05-08] MEDS: Pantoprazole Inj 80 MG in Sodium Chlor 0.9% Inj 100 ML IV.CONT SCH (06:26)
[2018-05-08] MEDS: Carvedilol 6.25 MG Tablet PO SCH ×2 (10:21→20:20)
[2018-05-08 10:56] LABS: Calcium 7.8 mg/dL (8.5-10.1); Carbon Dioxide 29.3 meq/L (21.0-32.0)
[2018-05-08] MEDS: Isosorbide Mononitrate 30 MG ER 24HR Tablet (Imdur) PO SCH (11:08)
[2018-05-08] MEDS: Acetaminophen 325 MG Tablet PO PRN ×2 (12:29→20:19)
[2018-05-08] MEDS: hydrALAZINE 25 MG Tablet PO SCH ×2 (12:29→17:19)
--- NOTE | 2018-05-08 13:54 | P.PNCA ---
Subjective Interval history: Patient denies any chest pain, pressure, palpitations, dizziness, edema or shortness of breath. Patient does complain of headache at this time. Medications and Allergies Allergies Allergy/AdvReac Type Severity Reaction Status Date / Time No Known Allergies Allergy Verified 05/06/18 01:18 Home Medications Medication Instructions Recorded Confirmed Type No Known Home Medications 05/06/18 05/06/18 History Active Medications: Active Medications Acetaminophen (Tylenol) 650 mg PO Q4H PRN PRN Reason: FEVER > 100.4 F Last Admin: 05/08/18 12:29 Dose: 650 mg Al Hydroxide/Mg Hydroxide (Milk Of Magnesia Liq) 30 ml PO Q12H PRN PRN Reason: Mild Constipation Bisacodyl (Dulcolax Supp) 10 mg RECTAL DAILY PRN PRN Reason: SEVERE CONSITIPATION Carvedilol (Coreg) 6.25 mg PO BID [facility] Last Admin: 05/08/18 10:21 Dose: 6.25 mg Hydralazine HCl (Apresoline) 25 mg PO TID [facility] Last Admin: 05/08/18 12:29 Dose: 25 mg Sodium Chloride (Ns Inj) 500 mls @ 0 mls/hr IV.SIG BOLUS [facility] Isosorbide Mononitrate (Imdur) 30 mg PO DAILY@0700 [facility] Last Admin: 05/08/18 11:08 Dose: 30 mg Lactulose (Lactulose Liq) 30 ml PO DAILY PRN PRN Reason: SEVERE CONSITIPATION Nitroglycerin (Nitrostat Sl) 0.4 mg SL Q5M PRN PRN Reason: CHEST PAIN Last Admin: 05/08/18 03:25 Dose: 0.4 mg Ondansetron HCl (Zofran Inj) 4 mg IV.PUSH Q4H PRN PRN Reason: VOMITING Last Admin: 05/06/18 19:00 Dose: 4 mg Pantoprazole Sodium (Protonix) 40 mg PO BID [facility] Last Admin: 05/08/18 12:28 Dose: 40 mg Sennosides (Senokot) 17.2 mg PO Q12H PRN PRN Reason: Moderate Constipation Sodium Chloride (Ns Flush) 2 ml IV.FLUSH UNSCH PRN PRN Reason: FLUSH AFTER USING IV ACCESS Last Admin: 05/06/18 01:08 Dose: 2 ml Sodium Chloride (Ns Flush) 2 ml IV.FLUSH BID [facility] Last Admin: 05/08/18 08:21 Dose: 2 ml Physical Exam Vital signs: Vital Signs 05/07/18 14:00 05/07/18 15:00 05/07/18 16:00 Temperature Pulse Rate 97 H 60 62 Respiratory Rate 20 Blood Pressure 161/81 H Pulse Oximetry 97 05/07/18 17:00 05/07/18 18:00 05/07/18 19:00 Temperature Pulse Rate 64 60 71 Respiratory Rate Blood Pressure Pulse Oximetry 05/07/18 20:00 05/07/18 21:00 05/07/18 22:00 Temperature 97.5 F L Pulse Rate 95 H 85 90 Respiratory Rate 20 Blood Pressure 198/77 H Pulse Oximetry 95 05/07/18 23:00 05/08/18 00:00 05/08/18 00:37 Temperature 98.3 F Pulse Rate 74 89 68 Respiratory Rate 16 16 Blood Pressure 213/96 H 187/86 H Pulse Oximetry 98 05/08/18 01:00 05/08/18 02:00 05/08/18 03:00 Temperature Pulse Rate 67 63 62 Respiratory Rate Blood Pressure Pulse Oximetry 05/08/18 04:00 05/08/18 04:35 05/08/18 05:00 Temperature 97.2 F L Pulse Rate 68 64 61 Respiratory Rate 18 18 Blood Pressure 186/90 H 159/83 H Pulse Oximetry 99 05/08/18 06:00 05/08/18 07:00 05/08/18 08:00 Temperature 98.4 F Pulse Rate 70 65 73 Respiratory Rate 16 Blood Pressure 175/92 H Pulse Oximetry 98 05/08/18 09:00 05/08/18 10:00 05/08/18 11:00 Temperature Pulse Rate 78 81 66 Respiratory Rate Blood Pressure Pulse Oximetry 05/08/18 12:00 05/08/18 13:00 Temperature 98.2 F Pulse Rate 71 72 Respiratory Rate 16 Blood Pressure 156/82 H Pulse Oximetry 97 Intake & Output 05/07/18 05/08/18 05/08/18 18:59 06:59 18:59 Intake Total 1300 / 1300 440 / 440 100 / 100 Output Total 500 / 500 725 / 725 Balance 800 / 800 -285 / -285 100 / 100 Weight 54 kg Intake: IV 1100 / 1100 200 / 200 100 / 100 Protonix Inj 80 MG In NS Inj 100 / 100 200 / 200 100 / 100 100 ML @ 10 mls/hr IV.CONT CONT [facility] Rx#:[id number] NS Inj 1,000 ML @ 100 mls/hr IV 1000 / 1000 0 / 0 .CONT .Q10H [facility] Rx#:[id number] Oral 200 / 200 240 / 240 Output: Urine 500 / 500 725 / 725 Other: Date of Last Bowel Movement 05/07/18 # Bowel Movements 1 Narrative: GENERAL: This is a well-nourished, well-developed patient, in no apparent distress. Patient speaks in clear complete sentences. Patient is pleasant. HEENT: Head is atraumatic and normocephalic. Neck is supple without lymphadenopathy and trachea is midline. No JVD or carotid bruits. CARDIOVASCULAR: Regular rate and rhythm without murmurs, gallops, or rubs. RESPIRATORY: Clear to auscultation. Breath sounds equal bilaterally. No wheezes , rales, or rhonchi. Chest wall is nontender. No use of accessory muscles. GASTROINTESTINAL: Abdomen is nontender, nondistended. Abdomen soft. No obvious pulsatile mass or bruit. No CVA tenderness. Strong femoral pulses bilaterally. Normal bowel sounds in all quadrants. MUSCULOSKELETAL: Patient is moving upper and lower extremities freely. No calf tenderness or edema, no Homans sign. Strong pulses in upper and lower extremities. NEUROLOGICAL: Patient is alert and oriented. Cranial nerves 2-12 are grossly intact. No focal deficits and speech is clear. SKIN: No rash and turgor is normal. Results 05/07/18 05:32 05/08/18 10:11 Cardiac Enzymes 05/06/18 05/06/18 05/06/18 Range/Units 13:42 13:42 19:15 AST 20 (15-37) U/L Troponin I Cancelled 0.11 H 0.16 H B-Natriuretic Peptide (0-100) pg/mL 05/07/18 05/07/18 05/07/18 Range/Units 01:08 05:32 05:32 AST 21 (15-37) U/L Troponin I 0.25 H B-Natriuretic Peptide 406 H (0-100) pg/mL Coagulation 05/07/18 Range/Units 05:32 B-Natriuretic Peptide 406 H (0-100) pg/mL CBC 05/06/18 05/07/18 Range/Units 13:42 05:32 WBC 6.8 (4.0-11.0) th/mm3 RBC 3.94 L (4.50-5.90) mil/mm3 Hgb 11.3 L 11.5 L (13.0-17.0) gm/dL Hct 33.7 L 34.4 L (39.0-51.0) % Plt Count 143 L (150-450) th/mm3 Neut # (Auto) 5.2 (1.8-7.7) th/mm3 Lymph # (Auto) 0.9 L (1.0-4.8) th/mm3 [place] # (Auto) 0.6 (0.0-0.9) th/mm3 Eos # (Auto) 0.1 (0.0-0.4) th/mm3 Baso # (Auto) 0.0 (0.0-0.2) th/mm3 Comprehensive Metabolic Panel 05/06/18 05/07/18 05/08/18 Range/Units 13:42 05:32 10:11 Sodium 139 137 138 (136-145) meq/L Potassium 4.0 3.3 L 3.0 L (3.5-5.1) meq/L Chloride 106 103 102 (98-107) meq/L Carbon Dioxide 24.6 24.7 29.3 (21.0-32.0) meq/L BUN 17 17 21 H (7-18) mg/dL Creatinine 1.32 H 1.49 H 1.36 H (0.60-1.30) mg/dL Calcium 7.1 L* 7.2 L* 7.8 L (8.5-10.1) mg/dL AST 20 21 (15-37) U/L ALT 23 21 (12-78) U/L Alkaline Phosphatase 44 L 42 L (45-117) U/L Total Protein 6.7 D 6.5 (6.4-8.2) g/dL Albumin 3.3 L 3.2 L (3.4-5.0) g/dL Intake and Output 05/07/18 05/08/18 05/08/18 22:59 06:59 14:59 Intake Total 1300 / 1300 340 / 340 100 / 100 Output Total 500 / 500 725 / 725 Balance 800 / 800 -385 / -385 100 / 100 Intake: IV 1100 / 1100 100 / 100 100 / 100 Protonix Inj 80 MG In NS Inj 100 / 100 100 / 100 100 / 100 100 ML @ 10 mls/hr IV.CONT CONT [facility] Rx#:[id number] NS Inj 1,000 ML @ 100 mls/hr IV 1000 / 1000 .CONT .Q10H [facility] Rx#:[id number] Oral 200 / 200 240 / 240 Output: Urine 500 / 500 725 / 725 Other: Date of Last Bowel Movement 05/07/18 05/07/18 # Bowel Movements 1 Weight 54 kg - Imaging and Cardiology Imaging: Impressions Abdomen/Pelvis CT 05/06/18 00:00 CONCLUSION: 1. No acute findings within the abdomen and pelvis. Dependent atelectasis in the lungs. Severe coronary calcifications. Mild fatty liver. No obstruction, free fluid or free air. Chest CT 05/06/18 12:38 CONCLUSION: 1. Focal airspace consolidation with air bronchograms in the right lung base. Cannot exclude pneumonia or aspiration in the appropriate clinical setting. 2. Borderline cardiomegaly with prominent coronary artery calcifications. 3. Very central pulmonary arteries are patent without evidence for central pulmonary artery embolism. Please note that this is not a PE protocol CT exam. Assessment and Plan - Assessment (1) GI bleed Code(s): K92.2 - Gastrointestinal hemorrhage, unspecified Status: Acute (2) NSTEMI (non-ST elevated myocardial infarction) Code(s): I21.4 - Non-ST elevation (NSTEMI) myocardial infarction Status: Acute (3) Hypertension Code(s): I10 - Essential (primary) hypertension Status: Acute - Plan Recent NSTEMI as evident by the trending troponin levels. Patient is hypertensive this morning and having a [place]. We will increase his Coreg to 6.25 for better BP control. Patient refused cardiac cath during his last hospitalization. He expressed wishes to leave the hospital. We will continue therapy for angina and recent NSTEMI including aggressive risk factor modification. We will be unable to clear the patient for any invasive procedures at this time due to high risk of cardiac complications. Patient was seen and evaluated by Dr. Youngblood who participated in care, management and decision making. - Attending Attestation Patient seen and examined. I reviewed and agree with the evaluation and plan as presented. No recurrent angina. Continue post MO care. D/w patient's son.
--- NOTE | 2018-05-08 14:40 | P.PNGI ---
Subjective Interval history: Patient is resting in the bed there is no family members present, opens eyes and responds to verbal stimuli Full lunch tray sitting at patient's bedside. Encourage patient to eat No abdominal pain no nausea no vomiting <Ophelia Lozano - Last Filed: 05/08/18 14:40> Physical Exam Vital signs: Vital Signs 05/07/18 15:00 05/07/18 16:00 05/07/18 17:00 Temperature Pulse Rate 60 62 64 Respiratory Rate 20 Blood Pressure 161/81 H Pulse Oximetry 97 05/07/18 18:00 05/07/18 19:00 05/07/18 20:00 Temperature 97.5 F L Pulse Rate 60 71 95 H Respiratory Rate 20 Blood Pressure 198/77 H Pulse Oximetry 95 05/07/18 21:00 05/07/18 22:00 05/07/18 23:00 Temperature Pulse Rate 85 90 74 Respiratory Rate Blood Pressure Pulse Oximetry 05/08/18 00:00 05/08/18 00:37 05/08/18 01:00 Temperature 98.3 F Pulse Rate 89 68 67 Respiratory Rate 16 16 Blood Pressure 213/96 H 187/86 H Pulse Oximetry 98 05/08/18 02:00 05/08/18 03:00 05/08/18 04:00 Temperature 97.2 F L Pulse Rate 63 62 68 Respiratory Rate 18 Blood Pressure 186/90 H Pulse Oximetry 99 05/08/18 04:35 05/08/18 05:00 05/08/18 06:00 Temperature Pulse Rate 64 61 70 Respiratory Rate 18 Blood Pressure 159/83 H Pulse Oximetry 05/08/18 07:00 05/08/18 08:00 05/08/18 09:00 Temperature 98.4 F Pulse Rate 65 73 78 Respiratory Rate 16 Blood Pressure 175/92 H Pulse Oximetry 98 05/08/18 10:00 05/08/18 11:00 05/08/18 12:00 Temperature 98.2 F Pulse Rate 81 66 71 Respiratory Rate 16 Blood Pressure 156/82 H Pulse Oximetry 97 05/08/18 13:00 05/08/18 14:00 Temperature Pulse Rate 72 75 Respiratory Rate Blood Pressure Pulse Oximetry Intake & Output 05/07/18 05/08/18 05/08/18 18:59 06:59 18:59 Intake Total 1300 / 1300 440 / 440 100 / 100 Output Total 500 / 500 725 / 725 Balance 800 / 800 -285 / -285 100 / 100 Weight 54 kg Intake: IV 1100 / 1100 200 / 200 100 / 100 Protonix Inj 80 MG In NS Inj 100 / 100 200 / 200 100 / 100 100 ML @ 10 mls/hr IV.CONT CONT [facility] Rx#:[id number] NS Inj 1,000 ML @ 100 mls/hr IV 1000 / 1000 0 / 0 .CONT .Q10H [facility] Rx#:[id number] Oral 200 / 200 240 / 240 Output: Urine 500 / 500 725 / 725 Other: Date of Last Bowel Movement 05/07/18 # Bowel Movements 1 - Constitutional no acute distress, chronically ill appearing, somnolent - Routine HEENT Exam Head: Present: normocephalic ENT: Present: mucous membranes moist - Routine Respiratory Exam Present: accessory muscle use (Lying flat in the bed respirations even and unlabored) - Routine Cardiovascular Exam Present: S1, S2 - Routine Abdominal Exam Present: soft, normoactive bowel sounds (No abdominal pain to light palpation) - Routine Skin Exam Present: intact, pallor <Marta,Ophelia M - Last Filed: 05/08/18 14:40> Vital signs: Vital Signs 05/07/18 20:00 05/07/18 21:00 05/07/18 22:00 Temperature 97.5 F L Pulse Rate 95 H 85 90 Respiratory Rate 20 Blood Pressure 198/77 H Pulse Oximetry 95 05/07/18 23:00 05/08/18 00:00 05/08/18 00:37 Temperature 98.3 F Pulse Rate 74 89 68 Respiratory Rate 16 16 Blood Pressure 213/96 H 187/86 H Pulse Oximetry 98 05/08/18 01:00 05/08/18 02:00 05/08/18 03:00 Temperature Pulse Rate 67 63 62 Respiratory Rate Blood Pressure Pulse Oximetry 05/08/18 04:00 05/08/18 04:35 05/08/18 05:00 Temperature 97.2 F L Pulse Rate 68 64 61 Respiratory Rate 18 18 Blood Pressure 186/90 H 159/83 H Pulse Oximetry 99 05/08/18 06:00 05/08/18 07:00 05/08/18 08:00 Temperature 98.4 F Pulse Rate 70 65 73 Respiratory Rate 16 Blood Pressure 175/92 H Pulse Oximetry 98 05/08/18 09:00 05/08/18 10:00 05/08/18 11:00 Temperature Pulse Rate 78 81 66 Respiratory Rate Blood Pressure Pulse Oximetry 05/08/18 12:00 05/08/18 13:00 05/08/18 14:00 Temperature 98.2 F Pulse Rate 71 72 75 Respiratory Rate 16 Blood Pressure 156/82 H Pulse Oximetry 97 05/08/18 15:00 05/08/18 16:00 05/08/18 17:00 Temperature 98.3 F Pulse Rate 81 89 76 Respiratory Rate 16 Blood Pressure 157/76 H Pulse Oximetry 95 05/08/18 18:00 05/08/18 19:00 Temperature Pulse Rate 77 78 Respiratory Rate Blood Pressure Pulse Oximetry Intake & Output 05/08/18 05/08/18 05/09/18 06:59 18:59 06:59 Intake Total 440 / 440 1050 / 1050 Output Total 725 / 725 750 / 750 Balance -285 / -285 300 / 300 Weight 54 kg Intake: IV 200 / 200 200 / 200 Protonix Inj 80 MG In NS Inj 200 / 200 100 / 100 100 ML @ 10 mls/hr IV.CONT CONT [facility] Rx#:[id number] NS Inj 1,000 ML @ 100 mls/hr IV 0 / 0 .CONT .Q10H [facility] Rx#:[id number] KCl 20 mEq Premix Inj 20 meq In 100 / 100 100 ml @ 50 mls/hr IV.SIG Q2H [facility] Rx#:[id number] Oral 240 / 240 850 / 850 Output: Urine 725 / 725 750 / 750 Other: Date of Last Bowel Movement 05/07/18 05/07/18 # Bowel Movements 1 <Alex Lindsey - Last Filed: 05/08/18 19:30> Results - Labs CBC & Chem 7: 05/07/18 05:32 05/08/18 10:11 Laboratory Results - last 24 hr 05/07/18 05/08/18 05:32 10:11 Sodium 138 Potassium 3.0 L Chloride 102 Carbon Dioxide 29.3 Anion Gap 7 BUN 21 H Creatinine 1.36 H Estimated GFR 50 L Random Glucose 112 H Calcium 7.8 L B-Natriuretic Peptide 406 H <Ophelia Lozano - Last Filed: 05/08/18 14:40> - Labs CBC & Chem 7: 05/07/18 05:32 05/08/18 10:11 Laboratory Results - last 24 hr 05/08/18 10:11 Sodium 138 Potassium 3.0 L Chloride 102 Carbon Dioxide 29.3 Anion Gap 7 BUN 21 H Creatinine 1.36 H Estimated GFR 50 L Random Glucose 112 H Calcium 7.8 L <Alex Lindsey E - Last Filed: 05/08/18 19:30> Assessment and Plan - Plan GI bleed possible coffee-ground emesis x1 event Mild anemia hemoglobin 12.5, no current obvious bleeding Uncontrolled cough aggravated with drinking eating and even at rest, rule out dysphasia and/or aspiration Elevated troponin, and an initial admission related to chest pain. Patient will need to be evaluated per cardiology and any cardiac event needs to be ruled out before any further GI testing. Abdominal pain history of constipation, CT scan of the abdomen pelvis is pending this too needs to be evaluated for further before any further GI testing is done 05/07/2018 mild fatty liver seen on CT scan. GI symptoms of nausea and vomiting and abdominal pain are controlled without symptoms today. Son is in the room with the patient. Discussed with son and daughter on the phone update which included patient refusing cardiac catheterization. Currently gastroenterology has no clearance for any further GI testing. Daughter states that her father does understand and is competent to make decisions but states that she and her family members do want him to have further testing. Encouraged all family members to meet together with the patient and discuss further his wishes going forward recommend palliative care to assist. Currently GI will treat medical management and defer for any GI testing unless there is cardiac clearance. According to staff patient is having no problems with cough or swallowing with thin liquids or food today. Appreciate cardiac input. Continue on Protonix drip for now 05/08/2018 patient complains of no abdominal pain no nausea no vomiting. Some decreased appetite noted with most of patient's food still sitting on his tray. Encouraged to eat and drink fluids. Patient and family members had meeting with hospitalist with fur glosser present. Patient stated to the physician and his family that he did not want further aggressive testing with cardiac cath or GI. Requests medical management only. Gastroenterology plan is to treat with PPI, bowel regimen as needed and supportive care. GI will sign off but will be glad to follow patient in the office post hospital stay in 2-4 weeks and/or on an outpatient basis. Anemia mild current hemoglobin 11.5 but no obvious bleeding. Plan Diet cardiac diet, avoid spicy or fatty foods and late night eating multivitamins with iron Reflux precautions chew food slowly, hydration. Monitor for any cough with swallow PPI drip DC'd and transition to Protonix 40 mg twice daily Zofran Bowel regimen Supportive care Patient was seen per myself and Dr. Lindsey, note was written on his behalf <Ophelia Lozano - Last Filed: 05/08/18 14:40> - Plan Patient seen and examined Agree with above history and physical Continue with current supportive care Monitor labs Not much to add from a GI perspective at this point we will sign off <Alex Lindsey - Last Filed: 05/08/18 19:30>
[2018-05-08] MEDS: Potassium Chlor 20 mEq Premix 20 MEQ/100 ML PIGGYBACK IV.SIG SCH ×2 (15:42→17:19)
--- NOTE | 2018-05-08 16:02 | P.CONPAL ---
Consult Service: Palliative Care Requesting Physician: Wendy Velasquez Reason for Consult: a. To assist with evaluation and management of symptoms including: Chest pain, vomiting b. To assist medical decision maker(s) with: better understanding of current medical conditions; weighing benefits/burdens of medical treatment options; making medical treatment decisions. Primary Care Provider: Nicolás Espinoza MD History of Present Illness History of Present Illness: This is an 83-year-old [place]er male who is brought to the emergency room with a complaint of chest pain, nausea and vomiting. He had received a sublingual nitroglycerin in route to the emergency department which relieved his chest pain. Per my discussion with the son-in-law, he had been experiencing mild chest congestion and had been taking guaifenesin frequently. He was hypertensive and labs showed mild renal insufficiency. Troponin was not elevated on admission, but did show a slight increase to 0.06, 0.11, 0.16, 0.25. B natruretic peptide is 406. Vomiting was noted to be coffee ground appearing. Consultations were requested from both cardiology and gastroenterology. Patient speaks only [place] Island[place] and family has been serving as translators. Diagnostic data on admission * CT of the abdomen and pelvis shows no acute findings, dependent atelectasis in the lungs, severe coronary calcifications, mild fatty liver, no obstruction, free fluid or free air. * Chest x-ray shows no acute cardiopulmonary disease. * Chest CT shows focal airspace consolidation with air bronchograms in the right lung base, not excluding pneumonia or aspiration. Borderline cardiomegaly with prominent coronary artery calcifications. * WBC 7.5, hemoglobin 12.5, hematocrit 37.7, platelets 158, sodium 139, potassium 3.9, BUN 22, creatinine 1.49, calcium 7.8. Cardiology consultation was completed and patient refused cardiac catheterization, both at this Hospitalization and his prior hospitalization. Cardiology opined that he would be at elevated risk for any invasive procedure and would not give cardiac clearance to undergo EGD to evaluate coffee-ground emesis. They recommended aggressive risk factor modification with medical therapy. They note that patient continues to request to go home. As he cannot be cleared for any procedures and has been refusing all invasive procedures, GI is now signed off. He is seen in room 253, dozing, arousable, compliant with exam. No family is at bedside. When asked if the patient is okay he nods yes but no other communication is available beyond that at this time. Telephone call was placed to his son and we are pending callback. . Function/Cognitive Trajectory: I spoke with his daughter briefly who referred me to her for further background information. 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 He cleans his own house, does his own cooking, rides his bike to [employer] a mile away and has been able to make his own decisions. There has been no noted decline of the patient's health or function status. . Review of Systems Cardiovascular: Reports chest pain (Pressure) Gastrointestinal: Reports coffee ground vomit PMFSH - History History Provided By: Patient, Family Member - Medical History Medical History: Medical History (Last Reviewed 05/07/18 @ 14:48 by Ha Espinosa, PT) HTN (hypertension) Hypercholesterolemia - Surgical History Surgical History: Surgical History (Last Reviewed 05/07/18 @ 14:48 by Ha Espinosa, PT) No history of previous surgery - Family History Family History: Family History (Last Reviewed 05/07/18 @ 14:48 by Ha Espinosa, PT) Other Family history normal - Tobacco History Second Hand Smoke Exposure: No Tobacco Use In Past 30 Days: No Smoking Status: Former smoker Tobacco Type: Cigarettes - Alcohol History How Often Do You Have a Drink Containing Alcohol: Never - Substance Use History Substance History: No History of Abuse - Travel History Recent Travel in the [place] Within the Last 8 Weeks: No Recent Travel Out of the Country Within the Last 8 Weeks: No - Immunization History Tetanus Immunization: Unsure Medications and Allergies Active Medications: Active Medications Acetaminophen (Tylenol) 650 mg PO Q4H PRN PRN Reason: FEVER > 100.4 F Last Admin: 05/08/18 12:29 Dose: 650 mg Al Hydroxide/Mg Hydroxide (Milk Of Magnesia Liq) 30 ml PO Q12H PRN PRN Reason: Mild Constipation Bisacodyl (Dulcolax Supp) 10 mg RECTAL DAILY PRN PRN Reason: SEVERE CONSITIPATION Carvedilol (Coreg) 6.25 mg PO BID SHANIA Last Admin: 05/08/18 10:21 Dose: 6.25 mg Hydralazine HCl (Apresoline) 25 mg PO TID [facility] Last Admin: 05/08/18 12:29 Dose: 25 mg Sodium Chloride (Ns Inj) 500 mls @ 0 mls/hr IV.SIG BOLUS [facility] Potassium Chloride (Kcl 20 Meq Premix Inj) 20 meq in 100 mls @ 50 mls/hr IV.SIG Q2H [facility] Stop: 05/08/18 18:44 Isosorbide Mononitrate (Imdur) 30 mg PO DAILY@0700 [facility] Last Admin: 05/08/18 11:08 Dose: 30 mg Lactulose (Lactulose Liq) 30 ml PO DAILY PRN PRN Reason: SEVERE CONSITIPATION Nitroglycerin (Nitrostat Sl) 0.4 mg SL Q5M PRN PRN Reason: CHEST PAIN Last Admin: 05/08/18 03:25 Dose: 0.4 mg Ondansetron HCl (Zofran Inj) 4 mg IV.PUSH Q4H PRN PRN Reason: VOMITING Last Admin: 05/06/18 19:00 Dose: 4 mg Pantoprazole Sodium (Protonix) 40 mg PO BID [facility] Last Admin: 05/08/18 12:28 Dose: 40 mg Sennosides (Senokot) 17.2 mg PO Q12H PRN PRN Reason: Moderate Constipation Sodium Chloride (Ns Flush) 2 ml IV.FLUSH UNSCH PRN PRN Reason: FLUSH AFTER USING IV ACCESS Last Admin: 05/06/18 01:08 Dose: 2 ml Sodium Chloride (Ns Flush) 2 ml IV.FLUSH BID [facility] Last Admin: 05/08/18 08:21 Dose: 2 ml Allergies Allergy/AdvReac Type Severity Reaction Status Date / Time No Known Allergies Allergy Verified 05/06/18 01:18 Home Medications Medication Instructions Recorded Confirmed Type No Known Home Medications 05/06/18 05/06/18 History Advance Directives Living Will: No Healthcare Surrogate: No Physical Exam Vital Signs: Vital Signs - 24 hr 05/07/18 16:00 05/07/18 17:00 05/07/18 18:00 Temperature Pulse Rate 62 64 60 Respiratory Rate 20 Blood Pressure 161/81 H Pulse Oximetry 97 05/07/18 19:00 05/07/18 20:00 05/07/18 21:00 Temperature 97.5 F L Pulse Rate 71 95 H 85 Respiratory Rate 20 Blood Pressure 198/77 H Pulse Oximetry 95 05/07/18 22:00 05/07/18 23:00 05/08/18 00:00 Temperature 98.3 F Pulse Rate 90 74 89 Respiratory Rate 16 Blood Pressure 213/96 H Pulse Oximetry 98 05/08/18 00:37 05/08/18 01:00 05/08/18 02:00 Temperature Pulse Rate 68 67 63 Respiratory Rate 16 Blood Pressure 187/86 H Pulse Oximetry 05/08/18 03:00 05/08/18 04:00 05/08/18 04:35 Temperature 97.2 F L Pulse Rate 62 68 64 Respiratory Rate 18 18 Blood Pressure 186/90 H 159/83 H Pulse Oximetry 99 05/08/18 05:00 05/08/18 06:00 05/08/18 07:00 Temperature Pulse Rate 61 70 65 Respiratory Rate Blood Pressure Pulse Oximetry 05/08/18 08:00 05/08/18 09:00 05/08/18 10:00 Temperature 98.4 F Pulse Rate 73 78 81 Respiratory Rate 16 Blood Pressure 175/92 H Pulse Oximetry 98 05/08/18 11:00 05/08/18 12:00 05/08/18 13:00 Temperature 98.2 F Pulse Rate 66 71 72 Respiratory Rate 16 Blood Pressure 156/82 H Pulse Oximetry 97 05/08/18 14:00 05/08/18 15:00 Temperature Pulse Rate 75 81 Respiratory Rate Blood Pressure Pulse Oximetry I&O: Intake & Output 05/06/18 05/07/18 05/08/18 05/09/18 06:59 06:59 06:59 06:59 Intake Total 1500 / 1500 2483 / 2483 1740 / 1740 100 / 100 Output Total 1150 / 1150 1225 / 1225 Balance 1500 / 1500 1333 / 1333 515 / 515 100 / 100 Weight 140 lb 123 lb 7.342 oz 119 lb 0.794 oz Physical Exam: CONSTITUTIONAL/GENERAL: This is an adequately nourished patient, in no apparent distress. TUBES/LINES/DRAINS: PIV SKIN: No jaundice, rashes, or lesions. Ecchymoses on upper extremities. No wounds seen anteriorly. Skin temperature appropriate. Not diaphoretic. HEAD: Atraumatic. Normocephalic. EYES: Pupils equal and round and reactive. Extraocular motions intact. No scleral icterus. No injection or drainage. Fundi not examined. ENT: Hearing grossly normal. Nose without bleeding or purulent drainage. Throat without visible erythema, exudates, masses, or lesions. NECK: Trachea midline. Supple, nontender. No palpable thyroid enlargement or nodularity. CARDIOVASCULAR: Regular rate and rhythm without murmurs, gallops, or rubs. No JVD. Peripheral pulses symmetric. RESPIRATORY/CHEST: Symmetric, unlabored respirations. Clear to auscultation. Breath sounds equal bilaterally. No wheezes, rales, or rhonchi. GASTROINTESTINAL: Abdomen soft, non-tender, nondistended. No hepato-splenomegaly , or palpable masses. No guarding. Bowel sounds present. GENITOURINARY: Without palpable bladder distension. MUSCULOSKELETAL: Extremities without clubbing, cyanosis, or edema. No joint tenderness or effusion noted. No calf tenderness. No mottling or clubbing. LYMPHATICS: No palpable cervical or supraclavicular adenopathy. NEUROLOGICAL: Awake and alert. Moves all extremities. PSYCHIATRIC: No obvious anxiety/depression. no apparent hallucinations or other psychotic thought process. Diagnostic Tests Laboratory: Laboratory Results - last 72 hr 05/06/18 05/06/18 05/06/18 00:30 00:30 05:50 WBC 7.5 RBC 4.30 L Hgb 12.5 L Hct 37.7 L MCV 87.5 MCH 29.0 MCHC 33.2 RDW 13.9 Plt Count 158 MPV 9.0 Neut % (Auto) 69.8 Lymph % (Auto) 18.5 E[place] % (Auto) 6.7 Eos % (Auto) 4.4 H Baso % (Auto) 0.6 Neut # (Auto) 5.3 Lymph # (Auto) 1.4 [place] # (Auto) 0.5 Eos # (Auto) 0.3 Baso # (Auto) 0.0 WBC Differential . Differential Comment Auto diff final Sodium 139 Potassium 3.9 Chloride 107 Carbon Dioxide 23.6 Anion Gap 8 BUN 22 H Creatinine 1.49 H Estimated GFR 45 L Random Glucose 189 H Calcium 7.8 L Prot Corrected Calcium Total Bilirubin 0.4 AST 20 ALT 28 Alkaline Phosphatase 51 Total Creatine Kinase Troponin I Less than 0.02 L 0.02 B-Natriuretic Peptide Total Protein 7.4 Albumin 3.7 05/06/18 05/06/18 05/06/18 09:30 11:29 13:42 WBC RBC Hgb Hct MCV MCH MCHC RDW Plt Count MPV Neut % (Auto) Lymph % (Auto) [place] % (Auto) Eos % (Auto) Baso % (Auto) Neut # (Auto) Lymph # (Auto) [place] # (Auto) Eos # (Auto) Baso # (Auto) WBC Differential Differential Comment Sodium Potassium Chloride Carbon Dioxide Anion Gap BUN Creatinine Estimated GFR Random Glucose Calcium Prot Corrected Calcium Total Bilirubin AST ALT Alkaline Phosphatase Total Creatine Kinase Cancelled Troponin I 0.03 0.06 H Cancelled B-Natriuretic Peptide Total Protein Albumin 05/06/18 05/06/18 05/06/18 13:42 13:42 19:15 WBC RBC Hgb 11.3 L Hct 33.7 L MCV MCH MCHC RDW Plt Count MPV Neut % (Auto) Lymph % (Auto) [place] % (Auto) Eos % (Auto) Baso % (Auto) Neut # (Auto) Lymph # (Auto) [place] # (Auto) Eos # (Auto) Baso # (Auto) WBC Differential Differential Comment Sodium 139 Potassium 4.0 Chloride 106 Carbon Dioxide 24.6 Anion Gap 8 BUN 17 Creatinine 1.32 H Estimated GFR 52 L Random Glucose 117 H Calcium 7.1 L* Prot Corrected Calcium 7.3 L* Total Bilirubin 0.5 AST 20 ALT 23 Alkaline Phosphatase 44 L Total Creatine Kinase 170 255 Troponin I 0.11 H 0.16 H B-Natriuretic Peptide Total Protein 6.7 D Albumin 3.3 L 05/07/18 05/07/18 05/07/18 01:08 05:32 05:32 WBC 6.8 RBC 3.94 L Hgb 11.5 L Hct 34.4 L MCV 87.4 MCH 29.3 MCHC 33.5 RDW 13.8 Plt Count 143 L MPV 8.8 Neut % (Auto) 76.9 H Lymph % (Auto) 13.2 [place]rie % (Auto) 8.8 H Eos % (Auto) 0.8 Baso % (Auto) 0.3 Neut # (Auto) 5.2 Lymph # (Auto) 0.9 L [place] # (Auto) 0.6 Eos # (Auto) 0.1 Baso # (Auto) 0.0 WBC Differential . Differential Comment Auto diff final Sodium 137 Potassium 3.3 L Chloride 103 Carbon Dioxide 24.7 Anion Gap 9 BUN 17 Creatinine 1.49 H Estimated GFR 45 L Random Glucose 114 H Calcium 7.2 L* Prot Corrected Calcium 7.5 L Total Bilirubin 0.8 AST 21 ALT 21 Alkaline Phosphatase 42 L Total Creatine Kinase Troponin I 0.25 H B-Natriuretic Peptide Total Protein 6.5 Albumin 3.2 L 05/07/18 05/08/18 05:32 10:11 WBC RBC Hgb Hct MCV MCH MCHC RDW Plt Count MPV Neut % (Auto) Lymph % (Auto) Erie % (Auto) Eos % (Auto) Baso % (Auto) Neut # (Auto) Lymph # (Auto) [place] # (Auto) Eos # (Auto) Baso # (Auto) WBC Differential Differential Comment Sodium 138 Potassium 3.0 L Chloride 102 Carbon Dioxide 29.3 Anion Gap 7 BUN 21 H Creatinine 1.36 H Estimated GFR 50 L Random Glucose 112 H Calcium 7.8 L Prot Corrected Calcium Total Bilirubin AST ALT Alkaline Phosphatase Total Creatine Kinase Troponin I B-Natriuretic Peptide 406 H Total Protein Albumin Result Diagrams: 05/07/18 05:32 05/08/18 10:11 Imaging: Abdomen/Pelvis CT 05/06/18 00:00 CONCLUSION: 1. No acute findings within the abdomen and pelvis. Dependent atelectasis in the lungs. Severe coronary calcifications. Mild fatty liver. No obstruction, free fluid or free air. Chest X-Ray 05/06/18 00:24 CONCLUSION: No acute cardiopulmonary disease. Chest CT 05/06/18 12:38 CONCLUSION: 1. Focal airspace consolidation with air bronchograms in the right lung base. Cannot exclude pneumonia or aspiration in the appropriate clinical setting. 2. Borderline cardiomegaly with prominent coronary artery calcifications. 3. Very central pulmonary arteries are patent without evidence for central pulmonary artery embolism. Please note that this is not a PE protocol CT exam. Patient/Family Conference Present at Family Conference: Spoke with patient's son-in-law, Zhao to obtain past history. Spoke with patient's daughter briefly but she stated she was busy and unable to speak at this time. Contact information was provided for further contact. Left message with the son, Armaan, and am awaiting callback. . 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 He is and his lives in [place]. They are but not legally . Reportedly has 10 children. Spiritual: Strict Jewish azalia. Legal: No advance directives. Ethical issues impacting care: Language barrier. . Important Contacts: Son: Armaan Castro Daughter: Brittney Castro Son-in-law: Zhao Nephew: Corbin . Prognosis: Prognosis is undetermined. He had positive troponin for a likely NSTEMI, but refused cardiac catheterization. No echocardiogram is available to evaluate ejection fraction or valvular function. He had a negative ETT in 2007 but no other cardiac testing is available. Patient has refused all other testing. Based on limited information it is impossible to prognosticate at this time. . Code Status: Full Code Plan: PLAN: Legal decision maker: Per my discussion with the family, the patient is oriented and able to make his own decisions. His is in [place] and unavailable. If patient becomes incapacitated to make decisions, by [place] statutes decision making would fall to the majority of his adult children Goals: To be determined CODE STATUS: FULL CODE by default SYMPTOMS: * Chest pain: Presented with chest pain but denies any currently. He had been riding his bike for an extended period of time, got lost with likely some anxiety. While it is presumed from his presenting elevation in troponin and severe coronary calcifications seen on imaging that he does have extensive cardiac disease, no catheterization has been done because the patient refuses and per cardiology he is at very high risk for any invasive procedures. Anginal pain will be treated medically with aggressive risk factor modifications per cardiology. * Vomiting: Resolved. Hemoglobin remains stable with no recurrent vomiting. Patient has been refusing all invasive procedures for the last several admissions and cardiology will not clear him for invasive procedures due to his elevated risk. GI has recommended PPI therapy and has signed off. SUMMARY This is an 83-year-old [place] Islander male with a previously independent and vibrant quality of life, able to ride his bicycle over a mile, clean his own house and make his own meals. At this time he continues to refuse invasive procedures and wishes to go home. There is no clinical testing that establishes an end-stage diagnosis, therefore making him ineligible for hospice. There is no cardiac catheterization or echocardiogram to evaluate the severity of any suspected heart disease and his only other history is hypertension. Palliative care will continue to follow the patient during hospital course as condition evolves, to assist patient/decision-maker with understanding of their medical conditions, weighing benefits/burdens of treatment options, for clarification of goals of treatment. Additionally will assist with any symptoms of palliative concern. . Appreciation Thank you for the opportunity to participate in the care of Luz Maria Castro. Attestation Attestation: To help prompt me to consider important information that might be impacting today's encounter and assessment, information from prior notes written by myself or my colleagues may have been "brought forward" into today's note. My signature on this note, however, is an attestation that I personally performed the exam, history, and/or decision-making noted today, and, unless otherwise indicated, the interactions with patient, family, and staff as well as the review of records all occurred today. I also attest that the listed assessment and stated plan reflect my best clinical judgment today based on the combination of historical information, prior notes, and today's exam/ interactions. When time spent is documented, it refers only to time spent today by the signer, or if indicated, combined time spent today by collaborating physician/nurse practitioner. .
--- NOTE | 2018-05-08 22:38 | P.PNIM ---
Subjective Interval history: patient seen and examined using over the phone Belgian community development manager, as well as son at bedside.patient seen this afternoon around 4 PM. Says he is feeling well. Denies any chest pain.he says he is not feeling that well this morning but feels better after IV fluid infusion. Physical Exam Vital signs: Vital Signs 05/07/18 23:00 05/08/18 00:00 05/08/18 00:37 Temperature 98.3 F Pulse Rate 74 89 68 Respiratory Rate 16 16 Blood Pressure 213/96 H 187/86 H Pulse Oximetry 98 05/08/18 01:00 05/08/18 02:00 05/08/18 03:00 Temperature Pulse Rate 67 63 62 Respiratory Rate Blood Pressure Pulse Oximetry 05/08/18 04:00 05/08/18 04:35 05/08/18 05:00 Temperature 97.2 F L Pulse Rate 68 64 61 Respiratory Rate 18 18 Blood Pressure 186/90 H 159/83 H Pulse Oximetry 99 05/08/18 06:00 05/08/18 07:00 05/08/18 08:00 Temperature 98.4 F Pulse Rate 70 65 73 Respiratory Rate 16 Blood Pressure 175/92 H Pulse Oximetry 98 05/08/18 09:00 05/08/18 10:00 05/08/18 11:00 Temperature Pulse Rate 78 81 66 Respiratory Rate Blood Pressure Pulse Oximetry 05/08/18 12:00 05/08/18 13:00 05/08/18 14:00 Temperature 98.2 F Pulse Rate 71 72 75 Respiratory Rate 16 Blood Pressure 156/82 H Pulse Oximetry 97 05/08/18 15:00 05/08/18 16:00 05/08/18 17:00 Temperature 98.3 F Pulse Rate 81 89 76 Respiratory Rate 16 Blood Pressure 157/76 H Pulse Oximetry 95 05/08/18 18:00 05/08/18 19:00 05/08/18 19:33 Temperature Pulse Rate 77 78 Respiratory Rate Blood Pressure Pulse Oximetry 94 L 05/08/18 20:00 05/08/18 21:00 05/08/18 21:04 Temperature 98.3 F Pulse Rate 87 86 Respiratory Rate 17 17 Blood Pressure 150/78 H Pulse Oximetry 93 L 05/08/18 22:00 Temperature Pulse Rate 74 Respiratory Rate Blood Pressure Pulse Oximetry Intake & Output 05/08/18 05/08/18 05/09/18 06:59 18:59 06:59 Intake Total 440 / 440 1050 / 1050 Output Total 725 / 725 750 / 750 Balance -285 / -285 300 / 300 Weight 54 kg Intake: IV 200 / 200 200 / 200 Protonix Inj 80 MG In NS Inj 200 / 200 100 / 100 100 ML @ 10 mls/hr IV.CONT CONT SHANIA Rx#:[id number] NS Inj 1,000 ML @ 100 mls/hr IV 0 / 0 .CONT .Q10H SHANIA Rx#:[id number] KCl 20 mEq Premix Inj 20 meq In 100 / 100 100 ml @ 50 mls/hr IV.SIG Q2H [facility] Rx#:[id number] Oral 240 / 240 850 / 850 Output: Urine 725 / 725 750 / 750 Other: Date of Last Bowel Movement 05/07/18 05/07/18 # Bowel Movements 1 Narrative: GENERAL: patient sitting up in bed. Appears [place]. SKIN: Warm and dry. HEAD: Normocephalic. EYES: No scleral icterus. No injection or drainage. NECK: Supple, trachea midline. No JVD. CARDIOVASCULAR: Regular rate and rhythm without murmurs, gallops, or rubs. RESPIRATORY: Breath sounds equal bilaterally. No accessory muscle use. GASTROINTESTINAL: Abdomen soft, non-tender, nondistended. MUSCULOSKELETAL: No cyanosis, or edema. BACK: Nontender without obvious deformity. No CVA tenderness. Results - Labs CBC & Chem 7: 05/07/18 05:32 05/08/18 10:11 Laboratory Results - last 24 hr 05/08/18 10:11 Sodium 138 Potassium 3.0 L Chloride 102 Carbon Dioxide 29.3 Anion Gap 7 BUN 21 H Creatinine 1.36 H Estimated GFR 50 L Random Glucose 112 H Calcium 7.8 L Assessment and Plan - Plan //GI bleed, patient with Abdominal pain, nausea and vomit, dehydration. not know cause for his GI bleed Given Protonix 40 mg yesterday night, will give one dose of Protonix 40 mg now and continue Protonix drip GI specialist consult placed and discussed face to face CT abdomen and Pelvis with contrast NPO H and H now and CMP at this time WBC 7.5, Hemoglobin 12.5 initially, Platelet count 158, Creatinine 1.49 = Hemoglobin overall stable. Patient refuses any kind of intervention currently. Continue PPI. =hemoglobin continues stable. Switched to by mouth PPI. GI has signed off. //NSTEMI //Hypertension Uncontrolled on admission continue Home medicines and Hydralazine as needed. = Troponin up to 0.25. Cardiology consulted. Patient refuses cardiac catheterization. = It appears that patient thought that his blood pressure was okay and stop some blood pressure medications. We will need home medications reconciled. = We will start Coreg. Avoid aspirin secondary to suspected GI bleed. =blood pressure stable today. Increased Coreg as per cardiology. Will check echocardiogram. //BRANDY probable almost at baseline, will give IV fluids and follow renal function , Creatinine 1.49 following CMP and H and H now. //Cough initial I want to rule out pathology he had clear lungs on CXR will follow with CT chest. = Patient reports that cough has resolved. Small airspace consolidation on CT. No signs of infection. Monitor. Will need repeat imagingas outpatient. =no further coughing. //Dehydration giving one bolus of 500 ml now and continue 100 ml per hour. = Nausea has resolved. Stop IV fluids. Monitor. //hypokalemia. Potassium 3.0. Replace. Check magnesium tomorrow //CAD status post recent diagnosis with NSTEMI but the patient refused Cardiac Cath. Cardiology saw the patient who complaint of chest pain, will continue Cardiac enzymes, first three sets negative latest 0.06 equivocal due to dehydration. Discharge Planning: Patient refuses cardiac catheterization, EGD. Pending stability, may go home tomorrow. Will need beta-alfredo, blood pressure control, PPI for suspected ulcer. Patient will benefit from home health nurse for medication management as he reports to have stopped some medications due to controlled blood pressure. =hopefully discharge home with home health tomorrow. Palliative care is following.
[2018-05-09] MEDS: Isosorbide Mononitrate 30 MG ER 24HR Tablet (Imdur) PO SCH (06:09)
[2018-05-09 06:21] LABS: Baso % (Auto) 0.3 % (0.0-2.0); Eos # (Auto) 0.1 th/mm3 (0.0-0.4); Eos % (Auto) 1.6 % (0.0-4.0); Hematocrit 35.3 % (39.0-51.0); Hemoglobin 11.7 gm/dL (13.0-17.0); Lymph # (Auto) 0.7 th/mm3 (1.0-4.8); Lymph % (Auto) 9.3 % (9.0-44.0); Mean Corpuscular HGB Conc 33.2 % (32.0-36.0); Mean Corpuscular Hemoglobin 29.2 pg (27.0-34.0); Mean Corpuscular Volume 87.9 fL (80.0-100.0); Mean Platelet Volume 8.9 fL (7.0-11.0); Mono # (Auto) 0.7 th/mm3 (0.0-0.9); Mono % (Auto) 8.7 % (0.0-8.0); Neut # (Auto) 6.4 th/mm3 (1.8-7.7); Neut % (Auto) 80.1 % (16.0-70.0); Platelet Count 154 th/mm3 (150-450); Red Blood Count 4.02 mil/mm3 (4.50-5.90); Red Cell Distribution Width 13.7 % (11.6-17.2)
[2018-05-09 06:43] LABS: Calcium 7.8 mg/dL (8.5-10.1); Carbon Dioxide 22.9 meq/L (21.0-32.0); Magnesium 1.8 mg/dL (1.5-2.5); Phosphorus 2.7 mg/dL (2.5-4.9); Potassium 3.4 meq/L (3.5-5.1)
[2018-05-09] MEDS: hydrALAZINE 25 MG Tablet PO SCH ×3 (09:17→19:36)
[2018-05-09] MEDS: Acetaminophen 325 MG Tablet PO PRN (09:17)
[2018-05-09] MEDS: Carvedilol 6.25 MG Tablet PO SCH ×2 (09:17→22:08)
--- NOTE | 2018-05-09 09:29 | P.PNCA ---
Subjective Interval history: Patient shakes head no when asked if he has CP, dizziness, edema, palpitations or SOB. Patient in no acute distress at this time. Medications and Allergies Allergies Allergy/AdvReac Type Severity Reaction Status Date / Time No Known Allergies Allergy Verified 05/06/18 01:18 Home Medications Medication Instructions Recorded Confirmed Type No Known Home Medications 05/06/18 05/06/18 History Active Medications: Active Medications Acetaminophen (Tylenol) 650 mg PO Q4H PRN PRN Reason: FEVER > 100.4 F Last Admin: 05/09/18 09:17 Dose: 650 mg Al Hydroxide/Mg Hydroxide (Milk Of Magnesia Liq) 30 ml PO Q12H PRN PRN Reason: Mild Constipation Bisacodyl (Dulcolax Supp) 10 mg RECTAL DAILY PRN PRN Reason: SEVERE CONSITIPATION Carvedilol (Coreg) 6.25 mg PO BID [facility] Last Admin: 05/09/18 09:17 Dose: 6.25 mg Hydralazine HCl (Apresoline) 25 mg PO TID [facility] Last Admin: 05/09/18 09:17 Dose: 25 mg Sodium Chloride (Ns Inj) 500 mls @ 0 mls/hr IV.SIG BOLUS [facility] Isosorbide Mononitrate (Imdur) 30 mg PO DAILY@0700 [facility] Last Admin: 05/09/18 06:09 Dose: 30 mg Lactulose (Lactulose Liq) 30 ml PO DAILY PRN PRN Reason: SEVERE CONSITIPATION Nitroglycerin (Nitrostat Sl) 0.4 mg SL Q5M PRN PRN Reason: CHEST PAIN Last Admin: 05/08/18 03:25 Dose: 0.4 mg Ondansetron HCl (Zofran Inj) 4 mg IV.PUSH Q4H PRN PRN Reason: VOMITING Last Admin: 05/06/18 19:00 Dose: 4 mg Pantoprazole Sodium (Protonix) 40 mg PO BID [facility] Last Admin: 05/09/18 09:17 Dose: 40 mg Sennosides (Senokot) 17.2 mg PO Q12H PRN PRN Reason: Moderate Constipation Sodium Chloride (Ns Flush) 2 ml IV.FLUSH UNSCH PRN PRN Reason: FLUSH AFTER USING IV ACCESS Last Admin: 05/06/18 01:08 Dose: 2 ml Sodium Chloride (Ns Flush) 2 ml IV.FLUSH BID [facility] Last Admin: 05/09/18 09:21 Dose: 2 ml Physical Exam Vital signs: Vital Signs 05/08/18 10:00 05/08/18 11:00 05/08/18 12:00 Temperature 98.2 F Pulse Rate 81 66 71 Respiratory Rate 16 Blood Pressure 156/82 H Pulse Oximetry 97 05/08/18 13:00 05/08/18 14:00 05/08/18 15:00 Temperature Pulse Rate 72 75 81 Respiratory Rate Blood Pressure Pulse Oximetry 05/08/18 16:00 05/08/18 17:00 05/08/18 18:00 Temperature 98.3 F Pulse Rate 89 76 77 Respiratory Rate 16 Blood Pressure 157/76 H Pulse Oximetry 95 05/08/18 19:00 05/08/18 19:33 05/08/18 20:00 Temperature 98.3 F Pulse Rate 78 87 Respiratory Rate 17 Blood Pressure 150/78 H Pulse Oximetry 94 L 93 L 05/08/18 21:00 05/08/18 21:04 05/08/18 22:00 Temperature Pulse Rate 86 74 Respiratory Rate 17 Blood Pressure Pulse Oximetry 05/08/18 23:00 05/09/18 00:00 05/09/18 01:00 Temperature 98.1 F Pulse Rate 74 73 70 Respiratory Rate 17 Blood Pressure 149/71 H Pulse Oximetry 95 05/09/18 02:00 05/09/18 03:00 05/09/18 04:00 Temperature 98.5 F Pulse Rate 84 80 78 Respiratory Rate 16 Blood Pressure 147/80 H Pulse Oximetry 95 05/09/18 05:00 05/09/18 06:00 Temperature Pulse Rate 80 79 Respiratory Rate Blood Pressure Pulse Oximetry Intake & Output 05/08/18 05/09/18 05/09/18 18:59 06:59 18:59 Intake Total 1050 / 1050 340 / 340 Output Total 750 / 750 300 / 300 Balance 300 / 300 40 / 40 Weight 54.1 kg Intake: IV 200 / 200 100 / 100 Protonix Inj 80 MG In NS Inj 100 / 100 100 ML @ 10 mls/hr IV.CONT CONT [facility] Rx#:[id number] KCl 20 mEq Premix Inj 20 meq In 100 / 100 100 / 100 100 ml @ 50 mls/hr IV.SIG Q2H [facility] Rx#:[id number] Oral 850 / 850 240 / 240 Output: Urine 750 / 750 300 / 300 Other: # Voids 3 Date of Last Bowel Movement 05/07/18 - Constitutional no acute distress - Routine HEENT Exam Head: Present: normocephalic Eye: Present: PERRL ENT: Present: mucous membranes moist - Routine Neck Exam Present: full ROM - Routine Respiratory Exam Present: CTA bilaterally - Routine Cardiovascular Exam Present: S1, S2. Absent: murmur, gallop, rubs - Routine Abdominal Exam Present: normoactive bowel sounds - Routine Extremities Exam Present: full ROM, pulses intact, normal capillary refill. Absent: cyanosis, clubbing, edema - Routine Skin Exam Present: intact - Routine Neurological Exam Present: oriented X3 - Detailed Neurological Exam: Coma Scale Eye Opening: Spontaneous Verbal Response: Oriented Motor Response: Obey commands Wilder Coma Scale Total: 15 - Routine Psychiatric Exam Present: normal affect Results 05/09/18 05:10 05/09/18 05:10 Cardiac Enzymes 05/07/18 Range/Units 05:32 B-Natriuretic Peptide 406 H (0-100) pg/mL Coagulation 05/07/18 Range/Units 05:32 B-Natriuretic Peptide 406 H (0-100) pg/mL CBC 05/09/18 Range/Units 05:10 WBC 8.0 (4.0-11.0) th/mm3 RBC 4.02 L (4.50-5.90) mil/mm3 Hgb 11.7 L (13.0-17.0) gm/dL Hct 35.3 L (39.0-51.0) % Plt Count 154 (150-450) th/mm3 Neut # (Auto) 6.4 (1.8-7.7) th/mm3 Lymph # (Auto) 0.7 L (1.0-4.8) th/mm3 [place] # (Auto) 0.7 (0.0-0.9) th/mm3 Eos # (Auto) 0.1 (0.0-0.4) th/mm3 Baso # (Auto) 0.0 (0.0-0.2) th/mm3 Comprehensive Metabolic Panel 05/08/18 05/09/18 Range/Units 10:11 05:10 Sodium 138 139 (136-145) meq/L Potassium 3.0 L 3.4 L (3.5-5.1) meq/L Chloride 102 106 (98-107) meq/L Carbon Dioxide 29.3 22.9 (21.0-32.0) meq/L BUN 21 H 28 H (7-18) mg/dL Creatinine 1.36 H 1.47 H (0.60-1.30) mg/dL Calcium 7.8 L 7.8 L (8.5-10.1) mg/dL Albumin 3.0 L (3.4-5.0) g/dL Intake and Output 05/08/18 05/09/18 05/09/18 22:59 06:59 14:59 Intake Total 950 / 950 340 / 340 Output Total 750 / 750 300 / 300 Balance 200 / 200 40 / 40 Intake: IV 100 / 100 100 / 100 KCl 20 mEq Premix Inj 20 meq In 100 / 100 100 / 100 100 ml @ 50 mls/hr IV.SIG Q2H [facility] Rx#:[id number] Oral 850 / 850 240 / 240 Output: Urine 750 / 750 300 / 300 Other: # Voids 3 Date of Last Bowel Movement 05/07/18 05/07/18 Weight 54.1 kg Assessment and Plan - Assessment (1) GI bleed Code(s): K92.2 - Gastrointestinal hemorrhage, unspecified Status: Acute (2) NSTEMI (non-ST elevated myocardial infarction) Code(s): I21.4 - Non-ST elevation (NSTEMI) myocardial infarction Status: Acute (3) Hypertension Code(s): I10 - Essential (primary) hypertension Status: Acute - Plan Recent NSTEMI as evident by the trending troponin levels. We increased his Coreg yesterday for better BP control, patient tolerating well. We will continue to monitor. We will continue aggressive risk factor modifications for angina and NSTEMI. We will continue current cardiac treatment plan. We will be unable to clear the patient for any invasive procedures at this time due to high risk of cardiac complications. Patient was seen and evaluated by Dr. Youngblood who participated in care, management and decision making. - Attending Attestation Patient seen and examined. I reviewed and agree with the evaluation and plan as presented. Continue post RI management. No recurrent angina. Increase activity. GI evaluation.
[2018-05-09] MEDS ORDERED: Potassium Chlor 20 mEq Premix 20 MEQ/100 ML PIGGYBACK IV.SIG ONE (11:00)
[2018-05-09] MEDS ORDERED: Potassium Bicarbonate 25 MEQ Effervescent Tablet PO ONE (13:30)
--- NOTE | 2018-05-09 18:59 | ECHRPT ---
Indication: CARDIOMYOPATHY CONCLUSIONS The left ventricular systolic function is hyperdynamic with an estimated ejection fraction in the ra nge of 65- 70%. Mild concentric left ventricular hypertrophy. Doppler parameters are consistent with impaired left ventricular relaxtion (grade 1 diastolic dysfun ction). Trace mitral valve regurgitation. Moderate aortic valve regurgitation. Eccentric aortic regurgitation jet directed at the mitral valve. Probable trileaflet aortic valve, cannot rule out a bicuspid aortic valve or trileaflet valve with p artially fused commissure. There is trace tricuspid valve regurgitation. BP: / HR: Rhythm: MEASUREMENTS (Male / Female) Normal Values Technical Quality: 2D ECHO LV Diastolic Diameter PLAX 4.1 cm 4.2 - 5.9 / 3.9 - 5.3 cm LV Systolic Diameter PLAX 2.8 cm IVS Diastolic Thickness 1.3 cm 0.6 - 1.0 / 0.6 - 0.9 cm LVPW Diastolic Thickness 1.3 cm 0.6 - 1.0 / 0.6 - 0.9 cm LV Relative Wall Thickness 0.6 RV Internal Dim ED PLAX 1.9 cm LVOT Diameter 2.2 cm Aortic Root Diameter 3.4 cm LA Systolic Diameter LX 2.2 cm 3.0 - 4.0 / 2.7 - 3.8 cm LV Ejection Fraction MOD 4C 72.6 % LV Ejection Fraction 4C AL 74.3 % M-MODE Aortic Root Diameter MM 3.4 cm LA Systolic Diameter MM 3.7 cm LA Ao Ratio MM 1.1 AV Cusp Separation MM 2.3 cm DOPPLER AV Peak Velocity 139.0 cm/s AV Peak Gradient 7.7 mmHg AI Peak Velocity 426.0 cm/s AI Peak Gradient 72.6 mmHg AI Pressure Half Time 329.0 ms LVOT Peak Velocity 112.0 cm/s LVOT Peak Gradient 5.0 mmHg AV Area Cont Eq pk 3.1 cm Mitral E Point Velocity 52.3 cm/s Mitral A Point Velocity 92.8 cm/s Mitral E to A Ratio 0.6 LV E' Lateral Velocity 4.7 cm/s Mitral E to LV E' Lateral Ratio 11.2 LV E' Septal Velocity 3.5 cm/s Mitral E to LV E' Septal Ratio 14.9 TR Peak Velocity 257.0 cm/s TR Peak Gradient 26.4 mmHg Right Atrial Pressure 10.0 mmHg Pulmonary Artery Systolic Pressu 36.4 mmHg Right Ventricular Systolic Press 36.4 mmHg PV Peak Velocity 109.0 cm/s PV Peak Gradient 4.8 mmHg FINDINGS LEFT VENTRICLE Normal left ventricular size. Mild concentric left ventricular hypertrophy. The left ventricular systolic function is hyperdynamic with an estimated ejection fraction in the ra nge of 65- 70%. Doppler parameters are consistent with impaired left ventricular relaxtion (grade 1 diastolic dysfun ction). RIGHT VENTRICLE Normal right ventricular size and systolic function. LEFT [facility] The left atrial size is normal. RIGHT [facility] The right atrial size is normal. ATRIAL [facility] Normal atrial septal thickness AORTA The aortic root and proximal ascending aorta are normal in size on limited imaging. MITRAL VALVE Structurally normal mitral valve. No mitral valve stenosis. Trace mitral valve regurgitation. AORTIC VALVE Probable trileaflet, cannot rule out a bicuspid aortic valve or trileaflet valve with partially fuse d commissure. No aortic valve stenosis. Moderate aortic valve regurgitation. Eccentric aortic regurgitation jet directed at the mitral valve. TRICUSPID VALVE Structurally normal tricuspid valve. There is trace tricuspid valve regurgitation. No tricuspid valve stenosis. PULMONARY VALVE No pulmonary valve regurgitation or stenosis. VESSELS The inferior vena cava is normal in size. PERICARDIUM No pericardial effusion. Forrest Canales DO (Electronically Signed) Final Date:09 May 2018 18:59
--- NOTE | 2018-05-09 22:19 | P.PNIM ---
Subjective Interval history: Patient seen today around 4 PM, at which time echocardiogram was not back. Says he is feeling better. Denies any chest pain or shortness breath. Says she feels like going home tomorrow. Over the phone [place] spanish interpreter/translator use and was well understood Physical Exam Vital signs: Vital Signs 05/08/18 23:00 05/09/18 00:00 05/09/18 01:00 Temperature 98.1 F Pulse Rate 74 73 70 Respiratory Rate 17 Blood Pressure 149/71 H Pulse Oximetry 95 05/09/18 02:00 05/09/18 03:00 05/09/18 04:00 Temperature 98.5 F Pulse Rate 84 80 78 Respiratory Rate 16 Blood Pressure 147/80 H Pulse Oximetry 95 05/09/18 05:00 05/09/18 06:00 05/09/18 07:00 Temperature Pulse Rate 80 79 76 Respiratory Rate Blood Pressure Pulse Oximetry 05/09/18 08:00 05/09/18 09:00 05/09/18 10:00 Temperature 97.8 F Pulse Rate 76 76 76 Respiratory Rate 18 Blood Pressure 177/83 H Pulse Oximetry 98 05/09/18 11:00 05/09/18 11:06 05/09/18 12:00 Temperature 98.2 F Pulse Rate 92 H 84 84 Respiratory Rate 18 Blood Pressure 145/74 H Pulse Oximetry 05/09/18 13:00 05/09/18 14:00 05/09/18 15:00 Temperature Pulse Rate 80 78 74 Respiratory Rate Blood Pressure Pulse Oximetry 05/09/18 16:00 05/09/18 17:00 05/09/18 18:00 Temperature Pulse Rate 74 74 76 Respiratory Rate 20 Blood Pressure 165/77 H Pulse Oximetry Intake & Output 05/09/18 05/09/18 05/10/18 06:59 18:59 06:59 Intake Total 340 / 340 790 / 790 Output Total 300 / 300 Balance 40 / 40 790 / 790 Weight 54.1 kg Intake: IV 100 / 100 10 / 10 KCl 20 mEq Premix Inj 20 meq In 100 / 100 10 / 10 100 ml @ 50 mls/hr IV.SIG ONCE ONE Rx#:[id number] Oral 240 / 240 780 / 780 Output: Urine 300 / 300 Other: Post Void Residual 5 # Voids 3 Date of Last Bowel Movement 05/07/18 Narrative: GENERAL: patient sitting up in bed. Appears comfortable SKIN: Warm and dry. HEAD: Normocephalic. EYES: No scleral icterus. No injection or drainage. NECK: Supple, trachea midline. No JVD. CARDIOVASCULAR: Regular rate and rhythm without murmurs, gallops, or rubs. RESPIRATORY: Breath sounds equal bilaterally. No accessory muscle use. GASTROINTESTINAL: Abdomen soft, non-tender, nondistended. MUSCULOSKELETAL: No cyanosis, or edema. BACK: Nontender without obvious deformity. No CVA tenderness. Results - Labs CBC & Chem 7: 05/09/18 05:10 05/09/18 05:10 Laboratory Results - last 24 hr 05/09/18 05/09/18 05:10 05:10 WBC 8.0 RBC 4.02 L Hgb 11.7 L Hct 35.3 L MCV 87.9 MCH 29.2 MCHC 33.2 RDW 13.7 Plt Count 154 MPV 8.9 Prelim Diff (Auto) Slide review pending Neut % (Auto) 80.1 H Lymph % (Auto) 9.3 [place] % (Auto) 8.7 H Eos % (Auto) 1.6 Baso % (Auto) 0.3 Neut # (Auto) 6.4 Lymph # (Auto) 0.7 L [place] # (Auto) 0.7 Eos # (Auto) 0.1 Baso # (Auto) 0.0 WBC Differential . Diff Scan Auto diff confirmed Differential Comment . Sodium 139 Potassium 3.4 L Chloride 106 Carbon Dioxide 22.9 Anion Gap 10 BUN 28 H Creatinine 1.47 H Estimated GFR 46 L Random Glucose 81 Calcium 7.8 L Phosphorus 2.7 Magnesium 1.8 Albumin 3.0 L Assessment and Plan - Plan //GI bleed, patient with Abdominal pain, nausea and vomit, dehydration. not know cause for his GI bleed Given Protonix 40 mg yesterday night, will give one dose of Protonix 40 mg now and continue Protonix drip GI specialist consult placed and discussed face to face CT abdomen and Pelvis with contrast NPO H and H now and CMP at this time WBC 7.5, Hemoglobin 12.5 initially, Platelet count 158, Creatinine 1.49 = Hemoglobin overall stable. Patient refuses any kind of intervention currently. Continue PPI. =hemoglobin continues stable. Switched to by mouth PPI. GI has signed off. //NSTEMI //Hypertension Uncontrolled on admission continue Home medicines and Hydralazine as needed. = Troponin up to 0.25. Cardiology consulted. Patient refuses cardiac catheterization. = It appears that patient thought that his blood pressure was okay and stop some blood pressure medications. We will need home medications reconciled. = We will start Coreg. Avoid aspirin secondary to suspected GI bleed. =blood pressure stable today. Increased Coreg as per cardiology. Will check echocardiogram. = 05/09. Echocardiogram with grade 1 diastolic dysfunction, EF 6570 percent, Moderate aortic valve regurgitation. Will need to maximize afterload reduction. We'll start nifedipine, and this can be titrated up tomorrow as tolerated //BRANDY probable almost at baseline, will give IV fluids and follow renal function , Creatinine 1.49 following CMP and H and H now. //Cough initial I want to rule out pathology he had clear lungs on CXR will follow with CT chest. = Patient reports that cough has resolved. Small airspace consolidation on CT. No signs of infection. Monitor. Will need repeat imagingas outpatient. =no further coughing. //Chronic kidney disease stage III //Dehydration giving one bolus of 500 ml now and continue 100 ml per hour. = Nausea has resolved. Stop IV fluids. Monitor. = Monitor off of IV fluids. Creatinine stable. //hypokalemia. Potassium 3.0. Replace. Check magnesium tomorrow = 05/09. Potassium 3.4. Replace. //CAD status post recent diagnosis with NSTEMI but the patient refused Cardiac Cath. Cardiology saw the patient who complaint of chest pain, will continue Cardiac enzymes, first three sets negative latest 0.06 equivocal due to dehydration. = Patient refuses cardiac catheterization. Discharge Planning: Patient refuses cardiac catheterization, EGD. Pending stability, may go home tomorrow. Will need beta-alfredo, blood pressure control, PPI for suspected ulcer. Patient will benefit from home health nurse for medication management as he reports to have stopped some medications due to controlled blood pressure. =hopefully discharge home with home health tomorrow. patient does not qualify for hospice due to normal ejection fraction. Palliative care is following.
[2018-05-10] MEDS: Acetaminophen 325 MG Tablet PO PRN ×2 (03:54→14:26)
[2018-05-10 06:47] LABS: Albumin 3.2 g/dL (3.4-5.0); Calcium 8.1 mg/dL (8.5-10.1); Carbon Dioxide 26.7 meq/L (21.0-32.0); Phosphorus 2.3 mg/dL (2.5-4.9); Potassium 3.2 meq/L (3.5-5.1)
[2018-05-10] MEDS: Isosorbide Mononitrate 30 MG ER 24HR Tablet (Imdur) PO SCH (07:49)
--- NOTE | 2018-05-10 08:54 | P.PNCA ---
Subjective Interval history: Patient complains of midsternal chest pain and right shoulder pain that increases with palpation. Patient denies any shortness of breath dizziness palpitations or edema. Medications and Allergies Allergies Allergy/AdvReac Type Severity Reaction Status Date / Time No Known Allergies Allergy Verified 05/06/18 01:18 Home Medications Medication Instructions Recorded Confirmed Type No Known Home Medications 05/06/18 05/06/18 History Active Medications: Active Medications Acetaminophen (Tylenol) 650 mg PO Q4H PRN PRN Reason: FEVER > 100.4 F Last Admin: 05/10/18 03:54 Dose: 650 mg Al Hydroxide/Mg Hydroxide (Milk Of Magnesia Liq) 30 ml PO Q12H PRN PRN Reason: Mild Constipation Bisacodyl (Dulcolax Supp) 10 mg RECTAL DAILY PRN PRN Reason: SEVERE CONSITIPATION Carvedilol (Coreg) 6.25 mg PO BID [facility] Last Admin: 05/09/18 22:08 Dose: 6.25 mg Carvedilol (Coreg) 12.5 mg PO BID [facility] Hydralazine HCl (Apresoline) 25 mg PO TID [facility] Last Admin: 05/09/18 19:36 Dose: 25 mg Sodium Chloride (Ns Inj) 500 mls @ 0 mls/hr IV.SIG BOLUS [facility] Isosorbide Mononitrate (Imdur) 30 mg PO DAILY@0700 [facility] Last Admin: 05/10/18 07:49 Dose: 30 mg Lactulose (Lactulose Liq) 30 ml PO DAILY PRN PRN Reason: SEVERE CONSITIPATION Nitroglycerin (Nitrostat Sl) 0.4 mg SL Q5M PRN PRN Reason: CHEST PAIN Last Admin: 05/08/18 03:25 Dose: 0.4 mg Ondansetron HCl (Zofran Inj) 4 mg IV.PUSH Q4H PRN PRN Reason: VOMITING Last Admin: 05/06/18 19:00 Dose: 4 mg Pantoprazole Sodium (Protonix) 40 mg PO BID [facility] Last Admin: 05/09/18 22:08 Dose: 40 mg Sennosides (Senokot) 17.2 mg PO Q12H PRN PRN Reason: Moderate Constipation Sodium Chloride (Ns Flush) 2 ml IV.FLUSH UNSCH PRN PRN Reason: FLUSH AFTER USING IV ACCESS Last Admin: 05/06/18 01:08 Dose: 2 ml Sodium Chloride (Ns Flush) 2 ml IV.FLUSH BID [facility] Last Admin: 05/09/18 22:09 Dose: 2 ml Physical Exam Vital signs: Vital Signs 05/09/18 09:00 05/09/18 10:00 05/09/18 11:00 Temperature Pulse Rate 76 76 92 H Respiratory Rate Blood Pressure Pulse Oximetry 05/09/18 11:06 05/09/18 12:00 05/09/18 13:00 Temperature 98.2 F Pulse Rate 84 84 80 Respiratory Rate 18 Blood Pressure 145/74 H Pulse Oximetry 05/09/18 14:00 05/09/18 15:00 05/09/18 16:00 Temperature Pulse Rate 78 74 74 Respiratory Rate 20 Blood Pressure 165/77 H Pulse Oximetry 05/09/18 17:00 05/09/18 18:00 05/09/18 19:00 Temperature Pulse Rate 74 76 66 Respiratory Rate Blood Pressure Pulse Oximetry 05/09/18 20:00 05/09/18 21:00 05/09/18 22:00 Temperature 99.0 F Pulse Rate 72 70 64 Respiratory Rate 16 Blood Pressure 170/81 H Pulse Oximetry 96 05/09/18 23:00 05/10/18 00:00 05/10/18 01:00 Temperature 98.6 F Pulse Rate 71 70 70 Respiratory Rate 16 Blood Pressure 171/78 H Pulse Oximetry 05/10/18 02:00 05/10/18 03:31 05/10/18 04:00 Temperature 98.6 F Pulse Rate 82 84 85 Respiratory Rate 16 Blood Pressure 165/86 H Pulse Oximetry 05/10/18 05:00 05/10/18 06:00 Temperature Pulse Rate 82 81 Respiratory Rate Blood Pressure Pulse Oximetry Intake & Output 05/09/18 05/10/18 05/10/18 18:59 06:59 18:59 Intake Total 790 / 790 240 / 240 Balance 790 / 790 240 / 240 Weight 54 kg Intake: IV 10 10 KCl 20 mEq Premix Inj 20 meq In 10 10 100 ml @ 50 mls/hr IV.SIG ONCE ONE Rx#:[id number] Oral 780 / 780 240 / 240 Other: Post Void Residual 5 Date of Last Bowel Movement 05/07/18 - Constitutional no acute distress - Routine HEENT Exam Head: Present: normocephalic Eye: Present: PERRL ENT: Present: mucous membranes moist - Routine Neck Exam Present: supple - Routine Respiratory Exam Present: CTA bilaterally - Routine Cardiovascular Exam Present: S1, S2. Absent: murmur, gallop, rubs - Routine Abdominal Exam Present: normoactive bowel sounds - Routine Extremities Exam Present: full ROM, pulses intact, normal capillary refill. Absent: cyanosis, clubbing, edema - Routine Skin Exam Present: intact - Routine Neurological Exam Present: oriented X3 - Detailed Neurological Exam: Coma Scale Eye Opening: Spontaneous Verbal Response: Oriented Motor Response: Obey commands Wilder Coma Scale Total: 15 - Routine Psychiatric Exam Present: normal affect Results 05/09/18 05:10 05/10/18 05:18 CBC 05/09/18 Range/Units 05:10 WBC 8.0 (4.0-11.0) th/mm3 RBC 4.02 L (4.50-5.90) mil/mm3 Hgb 11.7 L (13.0-17.0) gm/dL Hct 35.3 L (39.0-51.0) % Plt Count 154 (150-450) th/mm3 Neut # (Auto) 6.4 (1.8-7.7) th/mm3 Lymph # (Auto) 0.7 L (1.0-4.8) th/mm3 [place] # (Auto) 0.7 (0.0-0.9) th/mm3 Eos # (Auto) 0.1 (0.0-0.4) th/mm3 Baso # (Auto) 0.0 (0.0-0.2) th/mm3 Comprehensive Metabolic Panel 05/08/18 05/09/18 05/10/18 Range/Units 10:11 05:10 05:18 Sodium 138 139 138 (136-145) meq/L Potassium 3.0 L 3.4 L 3.2 L (3.5-5.1) meq/L Chloride 102 106 102 (98-107) meq/L Carbon Dioxide 29.3 22.9 26.7 (21.0-32.0) meq/L BUN 21 H 28 H 26 H (7-18) mg/dL Creatinine 1.36 H 1.47 H 1.34 H (0.60-1.30) mg/dL Calcium 7.8 L 7.8 L 8.1 L (8.5-10.1) mg/dL Albumin 3.0 L 3.2 L (3.4-5.0) g/dL Intake and Output 05/09/18 05/10/18 05/10/18 22:59 06:59 14:59 Intake Total 780 / 780 240 / 240 Balance 780 / 780 240 / 240 Intake: Oral 780 / 780 240 / 240 Other: Post Void Residual 5 Date of Last Bowel Movement 05/07/18 Weight 54 kg Assessment and Plan - Assessment (1) GI bleed Code(s): K92.2 - Gastrointestinal hemorrhage, unspecified Status: Acute (2) NSTEMI (non-ST elevated myocardial infarction) Code(s): I21.4 - Non-ST elevation (NSTEMI) myocardial infarction Status: Acute (3) Hypertension Code(s): I10 - Essential (primary) hypertension Status: Acute - Plan Recent NSTEMI as evident by the trending troponin levels. Patient remains hypertensive, will increase his Coreg to 12.5 mg twice daily. We will continue to monitor. Patient continues to complain of midsternal chest pain and right shoulder pain that increases with palpation or movement. We will continue with post NC care. We will continue aggressive risk factor modifications for angina and NSTEMI. We will be unable to clear the patient for any invasive procedures at this time due to high risk of cardiac complications. Patient was seen and evaluated by Dr. Youngblood who participated in care, management and decision making. - Attending Attestation Patient seen and examined. I reviewed and agree with the evaluation and plan as presented. Continue post NC care. Increase activity. GI evaluation with endoscopy later.
[2018-05-10] MEDS ORDERED: Carvedilol 12.5 MG Tablet PO SCH (09:00)
[2018-05-10] MEDS: hydrALAZINE 25 MG Tablet PO SCH ×2 (09:13→14:27)
--- NOTE | 2018-05-10 09:58 | P.PN ---
Subjective Interval history: This is a pleasant 83 y/o male who came to ER with chest pain, blood pressure was elevated on admission and bradycardic. 05/10: Stable continue to refuse care discussed with patient and his , also with nurse Mr. Zuluaga, he will go home with [facility], discussed with demand planning manager placed Face to Face. no nausea, vomit or diarrhea. no chest pain. Physical Exam Vital signs: Vital Signs 05/09/18 10:00 05/09/18 11:00 05/09/18 11:06 Temperature 98.2 F Pulse Rate 76 92 H 84 Respiratory Rate 18 Blood Pressure 145/74 H Pulse Oximetry 05/09/18 12:00 05/09/18 13:00 05/09/18 14:00 Temperature Pulse Rate 84 80 78 Respiratory Rate Blood Pressure Pulse Oximetry 05/09/18 15:00 05/09/18 16:00 05/09/18 17:00 Temperature Pulse Rate 74 74 74 Respiratory Rate 20 Blood Pressure 165/77 H Pulse Oximetry 05/09/18 18:00 05/09/18 19:00 05/09/18 20:00 Temperature 99.0 F Pulse Rate 76 66 72 Respiratory Rate 16 Blood Pressure 170/81 H Pulse Oximetry 96 05/09/18 21:00 05/09/18 22:00 05/09/18 23:00 Temperature Pulse Rate 70 64 71 Respiratory Rate Blood Pressure Pulse Oximetry 05/10/18 00:00 05/10/18 01:00 05/10/18 02:00 Temperature 98.6 F Pulse Rate 70 70 82 Respiratory Rate 16 Blood Pressure 171/78 H Pulse Oximetry 05/10/18 03:31 05/10/18 04:00 05/10/18 05:00 Temperature 98.6 F Pulse Rate 84 85 82 Respiratory Rate 16 Blood Pressure 165/86 H Pulse Oximetry 05/10/18 06:00 Temperature Pulse Rate 81 Respiratory Rate Blood Pressure Pulse Oximetry Intake & Output 05/09/18 05/10/18 05/10/18 18:59 06:59 18:59 Intake Total 790 / 790 240 / 240 Balance 790 / 790 240 / 240 Weight 54 kg Intake: IV KCl 20 mEq Premix Inj 20 meq In 100 ml @ 50 mls/hr IV.SIG ONCE ONE Rx#:[id number] Oral 780 / 780 240 / 240 Other: Post Void Residual 5 Date of Last Bowel Movement 05/07/18 Narrative: GENERAL: No acute distress. SKIN: Warm and dry. HEAD: Normocephalic. EYES: No scleral icterus. No injection or drainage. NECK: Supple, trachea midline. No JVD. CARDIOVASCULAR: Regular rate and rhythm without murmurs, gallops, or rubs. RESPIRATORY: Breath sounds equal bilaterally. No accessory muscle use. GASTROINTESTINAL: Abdomen soft, non-tender, nondistended. MUSCULOSKELETAL: No cyanosis, or edema. BACK: Nontender without obvious deformity. No CVA tenderness. Results - Labs CBC & Chem 7: 05/09/18 05:10 05/10/18 05:18 Laboratory Results - last 24 hr 05/10/18 05:18 Sodium 138 Potassium 3.2 L Chloride 102 Carbon Dioxide 26.7 Anion Gap 9 BUN 26 H Creatinine 1.34 H Estimated GFR 51 L Random Glucose 104 Calcium 8.1 L Phosphorus 2.3 L Magnesium 2.0 Albumin 3.2 L - Imaging Abdomen/Pelvis CT 05/06/18 00:00 CONCLUSION: 1. No acute findings within the abdomen and pelvis. Dependent atelectasis in the lungs. Severe coronary calcifications. Mild fatty liver. No obstruction, free fluid or free air. Chest X-Ray 05/06/18 00:24 CONCLUSION: No acute cardiopulmonary disease. Chest CT 05/06/18 12:38 CONCLUSION: 1. Focal airspace consolidation with air bronchograms in the right lung base. Cannot exclude pneumonia or aspiration in the appropriate clinical setting. 2. Borderline cardiomegaly with prominent coronary artery calcifications. 3. Very central pulmonary arteries are patent without evidence for central pulmonary artery embolism. Please note that this is not a PE protocol CT exam. - Procedures None Assessment and Plan - Plan 1. GI bleed with abdominal pain, nausea and vomit, dehydration on admission, on Protonix Drip GI specialist following, CT abdomen and Pelvis, Hemoglobin stable, Patient refused any intervention GI specialist Signed off the case continue PPIs by mouth 2. NSTEMI/Hypertension uncontrolled/CAD on admission, Hydralazine as needed, refused Cardiac Cath It appears that patient thought that his blood pressure was okay and stop some blood pressure medications. started on Coreg, avoid aspirin secondary to GI bleed, EF 65-70%, Moderate aortic valve regurgitation started on Nifedipine. 3. BRANDY/CKD III probable baseline for the patient 4. Cough improved CT chest looks more for chronic changes. management off antibiotics, cough improved 5. electrolyte derangement replaced Code Status: Full Code. Discussed Condition With: Patient, Nurse Mr. Zuluaga and his Daughter Miss Lugo Discharge Planning: will go home on [facility] for PT and skilled nurse.
[2018-05-10 10:35] VITALS: RESP 18
[2018-05-10 16:35] VITALS: BP 132/62; TEMP 98.2; O2SAT 95
--- NOTE | 2018-05-10 16:42 | P.DCO ---
- Diagnosis (1) GI bleed Status: Acute (2) Hypertension Status: Acute (3) NSTEMI (non-ST elevated myocardial infarction) Status: Acute - Physical Therapy Order: Evaluate and treat, Improve ambulation, Strength and gait training - Home Health Nursing Order: Medical education, Signs/symptoms of disease process, Medication education-adverse effect, Nursing assessment with vital signs - Case Management Consult No - Certification I have seen patient Luz Maria Castro on 05/10/18. My clinical findings support the need for the requested home health care services because: Limited mobility due to disease progression I certify that my clinical findings support that this patient is homebound because: Unsafe to leave home unassisted
--- NOTE | 2018-05-10 16:45 | P.DS ---
Date of admission: 05/06/18 20:25 Primary care physician: Nicolás Espinoza MD Attending physician on discharge: Issac Miller Anticipated date of discharge: 05/10/18 Brief History from admission: This is a pleasant 83 y/o male who was seen in Emergency room due to Chest pain , given nitroglycerine, Aspirin in the Ambulance, twelve-lead had shown possible depressions in the V4 5 and 6 that resolved after the nitro sublingual. He is here in the ER still vomiting and nauseous BP elevated and one episode after vomit had brief bradycardic reaction but no AMS no Hypotension, pt has vomitus in the green bag bedside. was recommended for admission to the Chest pain clinic and after evaluation by clerk specialist Doctor Tramaine Pierson, recommended to be admitted to medical team with the reason of bleeding and Altered mental status, he has Hypertension. Seen in Emergency room discussed with Doctor Moreira and his Daughter and Grandson , present they help with the translation and also with information about the patient History, as per his Daughter the patient started with cough on meaning four days ago took some Guaifenesin until Monday meaning three days ago he was improving but yesterday Monday started with Constipation, and developed Nausea, vomit and Abdominal pain, nausea and vomit, discussed with nurse the patient has copious vomit and blood. DS: Diagnosis - Discharge Diagnosis (1) GI bleed Status: Acute (2) Hypertension Status: Acute (3) NSTEMI (non-ST elevated myocardial infarction) Status: Acute DS: Medications - Discharge Medications Prescriptions: carvedilol [Coreg] 12.5 mg PO BID #60 tab hydralazine 25 mg PO TID #90 tab isosorbide mononitrate 30 mg PO DAILY@0700 #30 tab nitroglycerin [Nitrostat] 0.4 mg SUBLINGUAL DIRECTED PRN #14 tab PRN Reason: Chest Pain pantoprazole 40 mg PO BID #60 tab DS: Summary Hospital Course: This is a pleasant 83 y/o male who came to ER with chest pain, blood pressure was elevated on admission and bradycardic. 05/10: Stable continue to refuse care discussed with patient and his , also with nurse Smith Zuluaga, he will go home with [facility], discussed with litigation manager placed Face to Face. no nausea, vomit or diarrhea. no chest pain. Results - Labs CBC & Chem 7: 05/09/18 05:10 05/10/18 05:18 Laboratory Results - last 24 hr 05/10/18 05:18 Sodium 138 Potassium 3.2 L Chloride 102 Carbon Dioxide 26.7 Anion Gap 9 BUN 26 H Creatinine 1.34 H Estimated GFR 51 L Random Glucose 104 Calcium 8.1 L Phosphorus 2.3 L Magnesium 2.0 Albumin 3.2 L Assessment and Plan - Plan 1. GI bleed with abdominal pain, nausea and vomit, dehydration on admission, on Protonix Drip GI specialist following, CT abdomen and Pelvis, Hemoglobin stable, Patient refused any intervention GI specialist Signed off the case continue PPIs by mouth 2. NSTEMI/Hypertension uncontrolled/CAD on admission, Hydralazine as needed, refused Cardiac Cath It appears that patient thought that his blood pressure was okay and stop some blood pressure medications. started on Coreg, avoid aspirin secondary to GI bleed, EF 65-70%, Moderate aortic valve regurgitation started on Nifedipine. 3. BRANDY/CKD III probable baseline for the patient 4. Cough improved CT chest looks more for chronic changes. management off antibiotics, cough improved 5. electrolyte derangement replaced Code Status: Full Code. Discussed Condition With: Patient, Nurse Mr. Zuluaga and his Daughter Miss Lugo Discharge Planning: will go home on [facility] for PT and skilled nurse. - Time Spent with Patient Total time spent providing and/or coordinating discharge services: Greater than 30 minutes - Quality: VTE Deep Vein Thrombosis/Pulmonary Embolism Present on Admission: No Exam Vital signs: Vital Signs 05/09/18 17:00 05/09/18 18:00 05/09/18 19:00 Temperature Pulse Rate 74 76 66 Respiratory Rate Blood Pressure Pulse Oximetry 05/09/18 20:00 05/09/18 21:00 05/09/18 22:00 Temperature 99.0 F Pulse Rate 72 70 64 Respiratory Rate 16 Blood Pressure 170/81 H Pulse Oximetry 96 05/09/18 23:00 05/10/18 00:00 05/10/18 01:00 Temperature 98.6 F Pulse Rate 71 70 70 Respiratory Rate 16 Blood Pressure 171/78 H Pulse Oximetry 05/10/18 02:00 05/10/18 03:31 05/10/18 04:00 Temperature 98.6 F Pulse Rate 82 84 85 Respiratory Rate 16 Blood Pressure 165/86 H Pulse Oximetry 05/10/18 05:00 05/10/18 06:00 05/10/18 07:00 Temperature Pulse Rate 82 81 81 Respiratory Rate Blood Pressure Pulse Oximetry 05/10/18 08:00 05/10/18 09:00 05/10/18 10:00 Temperature 98.5 F Pulse Rate 86 82 110 H Respiratory Rate 18 Blood Pressure 149/74 H Pulse Oximetry 94 L 05/10/18 11:00 05/10/18 11:15 05/10/18 12:00 Temperature 98.3 F Pulse Rate 89 80 Respiratory Rate 18 Blood Pressure 135/71 Pulse Oximetry 94 L 96 05/10/18 13:00 05/10/18 14:00 05/10/18 15:00 Temperature Pulse Rate 72 77 75 Respiratory Rate Blood Pressure Pulse Oximetry 05/10/18 16:00 Temperature 98.2 F Pulse Rate 72 Respiratory Rate 18 Blood Pressure 132/62 Pulse Oximetry 95 Intake & Output 05/09/18 05/10/18 05/10/18 18:59 06:59 18:59 Intake Total 790 / 790 240 / 240 Balance 790 / 790 240 / 240 Weight 54 kg Intake: IV KCl 20 mEq Premix Inj 20 meq In 10 100 ml @ 50 mls/hr IV.SIG ONCE ONE Rx#:[id number] Oral 780 / 780 240 / 240 Other: Post Void Residual 5 Date of Last Bowel Movement 05/07/18 Narrative: GENERAL: No acute distress. SKIN: Warm and dry. HEAD: Normocephalic. EYES: No scleral icterus. No injection or drainage. NECK: Supple, trachea midline. No JVD. CARDIOVASCULAR: Regular rate and rhythm without murmurs, gallops, or rubs. RESPIRATORY: Breath sounds equal bilaterally. No accessory muscle use. GASTROINTESTINAL: Abdomen soft, non-tender, nondistended. MUSCULOSKELETAL: No cyanosis, or edema. BACK: Nontender without obvious deformity. No CVA tenderness. Results Procedures completed during hospitalization: None Labs on day of discharge: Labs from last 24 hours 05/10/18 05:18 Sodium 138 Potassium 3.2 L Chloride 102 Carbon Dioxide 26.7 Anion Gap 9 BUN 26 H Creatinine 1.34 H Estimated GFR 51 L Random Glucose 104 Calcium 8.1 L Phosphorus 2.3 L Magnesium 2.0 Albumin 3.2 L - Impressions ITS Impressions Abdomen/Pelvis CT 05/06/18 00:00 CONCLUSION: 1. No acute findings within the abdomen and pelvis. Dependent atelectasis in the lungs. Severe coronary calcifications. Mild fatty liver. No obstruction, free fluid or free air. Chest X-Ray 05/06/18 00:24 CONCLUSION: No acute cardiopulmonary disease. Chest CT 05/06/18 12:38 CONCLUSION: 1. Focal airspace consolidation with air bronchograms in the right lung base. Cannot exclude pneumonia or aspiration in the appropriate clinical setting. 2. Borderline cardiomegaly with prominent coronary artery calcifications. 3. Very central pulmonary arteries are patent without evidence for central pulmonary artery embolism. Please note that this is not a PE protocol CT exam. Discharge Plan - Discharge Disposition Patient Disposition: /Home Health Service - Discharge Condition Condition: Good - Discharge Order Discharge Orders: Discharge Order (Routine); Ordered 05/10/18 Ordered By: Issac Miller - Discharge Details Anticipated Discharge Date: 05/10/18 Discharge Comment: Follow up with PCP doctor Olga Monzon in three days - Physicians Team Primary Care Provider: Nicolás Espinoza Attending Provider: Issac Miller Other Providers: Faisal Navarrete MD ; Lexa Youngblood MD ; Reyes Campbell MD
[2018-05-10 17:06] VITALS: PULSE 80
== END 2018-05-10 17:16 | disposition home health service (06) ==
LOC: NEDA 23:50 → NEPC 23:50 → NEPFCDU 05-06 09:23 → HCIS 05-06 22:29
PROVIDERS: ADMIT Internal Medicine; ATTEND Internal Medicine

== ENCOUNTER 2018-05-11 12:55 | Observation (INO) ==
[2018-05-11 13:53] LABS: Baso % (Auto) 0.2 % (0.0-2.0); Eos # (Auto) 0.1 th/mm3 (0.0-0.4); Eos % (Auto) 1.1 % (0.0-4.0); Hematocrit 39.2 % (39.0-51.0); Hemoglobin 12.8 gm/dL (13.0-17.0); Lymph # (Auto) 0.9 th/mm3 (1.0-4.8); Lymph % (Auto) 12.8 % (9.0-44.0); Mean Corpuscular HGB Conc 32.7 % (32.0-36.0); Mean Corpuscular Hemoglobin 28.9 pg (27.0-34.0); Mean Corpuscular Volume 88.4 fL (80.0-100.0); Mean Platelet Volume 8.8 fL (7.0-11.0); Mono # (Auto) 0.6 th/mm3 (0.0-0.9); Mono % (Auto) 8.7 % (0.0-8.0); Neut # (Auto) 5.5 th/mm3 (1.8-7.7); Neut % (Auto) 77.2 % (16.0-70.0); Platelet Count 195 th/mm3 (150-450); Red Blood Count 4.43 mil/mm3 (4.50-5.90); Red Cell Distribution Width 13.4 % (11.6-17.2); White Blood Count 7.1 th/mm3 (4.0-11.0)
--- NOTE | 2018-05-11 13:56 | XR ---
EXAM DATE: 05/11/2018 1:52 PM EDT AGE/SEX: 83 years / Male INDICATIONS: . Short of breath CLINICAL DATA: This is the patient's initial encounter. Patient reports that signs and symptoms have been present for 1 week and indicates a pain score of 0/10. MEDICAL/SURGICAL HISTORY: None. None. COMPARISON: [facility] [place], CT CHEST W CONTRAST, 05/06/2018. . FINDINGS: PA and lateral views of the chest demonstrate the lungs to be symmetrically aerated without evidence of mass, infiltrate or effusion. The cardiomediastinal contours are unremarkable. Osseous structures are intact. CONCLUSION: Negative examination. Electronically signed by: Davis Ledbetter MD 05/11/2018 1:54 PM EDT
[2018-05-11 14:06] LABS: Prothrombin Time 10.6 sec (9.8-11.6)
[2018-05-11 14:27] LABS: Alanine Aminotransferase 32 U/L (12-78); Albumin 3.5 g/dL (3.4-5.0); Anion Gap 11 meq/L (5-15); Aspartate Aminotransferase 60 U/L (15-37); Blood Urea Nitrogen 29 mg/dL (7-18); Calcium 8.7 mg/dL (8.5-10.1); Carbon Dioxide 26.5 meq/L (21.0-32.0); Chloride 100 meq/L (98-107); Glomerular Filtration Rate 41 mL/min (>89); Glucose,Random 143 mg/dL (74-106); Potassium 3.6 meq/L (3.5-5.1); Sodium 137 meq/L (136-145)
[2018-05-11 14:31] LABS: Alkaline Phosphatase 47 U/L (45-117); Total Protein 7.5 g/dL (6.4-8.2); Troponin I 0.05 ng/mL (0.02-0.05)
[2018-05-11] MEDS ORDERED: Morphine Inj 4 MG/ML Vial IV.PUSH ONE (20:53)
--- NOTE | 2018-05-11 21:03 | ED ---
HPI General Chief Complaint: Chest Pain Stated Complaint: Medical Time Seen by Provider: 05/11/18 15:32 Source: family and old records reviewed Mode of arrival: ambulatory Limitations: language barrier History of Present Illness MD complaint: Reports chest pain STEMI Alert: No Onset (ago): day(s) (about 05/06) Duration: other (waxes and wanes) Pain location: Reports substernal Pain radiation: Reports none Relieving factors: nothing Exacerbating factors: nothing Context: Reports other (The patient was hospitalized here 05/06-05/10 with a NSTEMI. This was complicated by an upper GI bleed. The patient refused EGD and refused cardiac catheterization. He subsequently left the hospital AMA. Family reports that he feels worse today and agreed to come back to the hospital and allow testing.) Associated symptoms: Reports dyspnea Treatments prior to arrival chest pain: Reports none; Denies nitroglycerin Related Data Previous Rx's Medication Instructions Recorded carvedilol [Coreg] 12.5 mg PO BID #60 tab 05/10/18 hydralazine 25 mg PO TID #90 tab 05/10/18 isosorbide mononitrate 30 mg PO DAILY@0700 #30 tab 05/10/18 nitroglycerin [Nitrostat] 0.4 mg SUBLINGUAL DIRECTED PRN 05/10/18 #14 tab pantoprazole 40 mg PO BID #60 tab 05/10/18 Allergies Allergy/AdvReac Type Severity Reaction Status Date / Time No Known Allergies Allergy Verified 05/11/18 13:20 Review of Systems ROS Unobtainable ROS Unobtainable: other (Difficult secondary to language barrier) [facility] Medical History Medical History HTN (hypertension) (Acute) Hypercholesterolemia (Acute) Upper GI bleed (Acute) Surgical History Surgical History No history of previous surgery (Acute) Social History Social History Substance History: No History of Abuse Second Hand Smoke Exposure: No Smoking Status: Never smoker Tobacco Type: Cigarettes How Often Do You Have a Drink Containing Alcohol: Never Recent Travel in [facility] within the Last 8 Weeks: No Recent Out of Country Travel within the Last 8 Weeks: No Immunization History Tetanus Immunization: Unsure Exam Const General: cooperative, healthy appearing and comfortable Orientation: alert and awake [facility] Head: normal to inspection, normocephalic and atraumatic Eyes General: appearance normal, both eyes and all related structures Conjunctivae: conjunctivae normal Sclera: sclerae normal EOM: EOM intact bilaterally Neck Neck: normal visual inspection and full ROM Chest Chest: normal inspection of the chest Resp Effort & Inspection: normal respiratory effort Auscultation: clear to auscultation bilaterally Cardio Rate: regular rate Rhythm: regular rhythm Heart Sounds: S1 normal and S2 normal GI Inspection: normal to inspection Palpation: soft Back/Spine/Pelvis Cervical Spine: cervical ROM normal Thoracic/Lumbar Spine: thoraco-lumbar ROM normal Skin General: no rashes or lesions noted, turgor normal and dry skin Neuro General: alert, awake, oriented x3, moves all extremities and CN's II-XI intact bilaterally Extrem General: normal to inspection, full ROM and no pedal edema Psych Appearance: grossly normal Mental Status: mental status grossly normal Attitude: cooperative Course Reevaluation(s) Reevaluation #1: We have attempted interpretation using both the computer and the telephone without success. The patient states that he cannot hear either one. Since we have not been able to definitively determine whether or not this patient would allow a cardiac catheterization, the safest and most reasonable thing to do would be to admit him to the chest pain center for serial enzymes and EKGs. Hopefully, they will have better luck with interpretation during the daylight hours. Time: 21:48 Initial Documented Vital Signs Temperature 98.3 F 05/11/18 13:07 Pulse Rate 80 05/11/18 13:07 Respiratory Rate 16 05/11/18 13:07 Blood Pressure 130/67 05/11/18 13:07 Pulse Oximetry 96 05/11/18 13:07 Last Documented Vital Signs Temperature 98.3 F 05/11/18 13:07 Pulse Rate 80 05/11/18 20:47 Respiratory Rate 20 05/11/18 20:47 Blood Pressure 145/69 H 05/11/18 20:47 Pulse Oximetry 97 05/11/18 20:47 Medical Decision Making MDM Narrative Medical decision making narrative: This is a [place] patient who was here from for a non-STEMI and upper GI bleed. He refused EGD and he refused cardiac catheterization. However, he is feeling worse since signing out AMA. He told his family today that he would come back to the hospital and allow testing. He obviously cannot have any aspirin or heparin. I have ordered morphine and Nitropaste. This patient said in our waiting room for about 8 hours before being brought back to her room. Therefore, it is past time for his repeat troponin and repeat EKG. I have ordered 2 more troponins and EKGs. The second EKG is about the same as the first. He continues to have diffuse ST T wave changes inferiorly and laterally. Medical Screen Exam Complete: Yes Emergency Medical Condition: Yes Differential Diagnosis Differential Diagnosis: Differential diagnosis of chest pain includes but is not limited to musculoskeletal pain, pulmonary embolism, acute coronary syndrome , pneumonia, pleurisy Medical Records Medical records reviewed: Yes I reviewed the patient's medical records. Lab Data Lab results reviewed: Yes I reviewed the patient's lab results. Result diagrams: 05/11/18 13:38 05/11/18 13:38 Lab Results 05/11/18 05/11/18 05/11/18 Range/Units 13:38 13:38 13:38 WBC 7.1 (4.0-11.0) th/mm3 RBC 4.43 L (4.50-5.90) mil/mm3 Hgb 12.8 L (13.0-17.0) gm/dL Hct 39.2 (39.0-51.0) % MCV 88.4 (80.0-100.0) fL MCH 28.9 (27.0-34.0) pg MCHC 32.7 (32.0-36.0) % RDW 13.4 (11.6-17.2) % Plt Count 195 (150-450) th/mm3 MPV 8.8 (7.0-11.0) fL Neut % (Auto) 77.2 H (16.0-70.0) % Lymph % (Auto) 12.8 (9.0-44.0) % Clayton % (Auto) 8.7 H (0.0-8.0) % Eos % (Auto) 1.1 (0.0-4.0) % Baso % (Auto) 0.2 (0.0-2.0) % Neut # (Auto) 5.5 (1.8-7.7) th/mm3 Lymph # (Auto) 0.9 L (1.0-4.8) th/mm3 Clayton # (Auto) 0.6 (0.0-0.9) th/mm3 Eos # (Auto) 0.1 (0.0-0.4) th/mm3 Baso # (Auto) 0.0 (0.0-0.2) th/mm3 WBC Differential . Differential Comment Auto diff final PT 10.6 (9.8-11.6) sec INR 1.0 Ratio Sodium 137 (136-145) meq/L Potassium 3.6 (3.5-5.1) meq/L Chloride 100 (98-107) meq/L Carbon Dioxide 26.5 (21.0-32.0) meq/L Anion Gap 11 (5-15) meq/L BUN 29 H (7-18) mg/dL Creatinine 1.62 H (0.60-1.30) mg/dL Estimated GFR 41 L (>89) mL/min Random Glucose 143 H (74-106) mg/dL Calcium 8.7 (8.5-10.1) mg/dL Total Bilirubin 0.7 (0.2-1.0) mg/dL AST 60 H (15-37) U/L ALT 32 (12-78) U/L Alkaline Phosphatase 47 (45-117) U/L Troponin I 0.05 (0.02-0.05) ng/mL Total Protein 7.5 D (6.4-8.2) g/dL Albumin 3.5 (3.4-5.0) g/dL Imaging Data Radiologist's impression: Chest X-Ray 05/11/18 13:21 CONCLUSION: Negative examination. ECG Data EKG Prior to Arrival: No Attestation: I personally reviewed and interpreted this ECG as follows: (EKG shows a sinus rhythm with a rate of 74. He has ST segment depression and T wave inversion laterally. He has some nonspecific inferior changes. The ST-T wave changes are different from the last EKG that he had done here.) Discharge Plan Discharge Disposition Patient Disposition: 30 Still Patient Discharge Details Diagnosis: Chest pain Physicians Team ED Provider: Adriana Dobbs Primary Care Provider: Nicolás Espinoza Rxs /Orders / Referrals /Forms Prescriptions: No Action carvedilol [Coreg] 12.5 mg Tablet 12.5 mg PO BID Qty: 60 RF: 0 isosorbide mononitrate 30 mg Tablet Extended Release 24 Hr 30 mg PO DAILY@0700 Qty: 30 RF: 0 hydralazine 25 mg Tablet 25 mg PO TID Qty: 90 RF: 0 pantoprazole 40 mg Tablet,Delayed Release (Dr/Ec) 40 mg PO BID Qty: 60 RF: 0 nitroglycerin [Nitrostat] 0.4 mg Tablet, Sublingual 0.4 mg Sublingual DIRECTED PRN (Reason: Chest Pain) Qty: 14 RF: 0 Discharge Instructions Patient Printed Instructions: Chest Pain (ED) Status ED Status: With Doctor
[2018-05-11] MEDS ORDERED: Morphine Inj 4 MG/ML Vial IV.PUSH PRN (22:21)
[2018-05-11] MEDS: Metoprolol Inj 5 MG/5 ML Vial IV.PUSH SCH ×2 (23:09→23:10)
--- NOTE | 2018-05-12 00:32 | P.HPIM ---
History of Present Illness Primary Care Physician: Nicolás Espinoza MD History of Present Illness: Patient previously hospitalized here from 05/06-05/10 with non-ST elevation [place], suspected upper GI bleeding due to hematemesis. Patient refused both EGD and cardiac catheterization. Discharged from hospital on 05/10. Patient reports subsequently having worsening chest pain since discharge. Family not present at the time of my examI used over the phone [place] pressure test operator, however very difficult history which is limited due to patient's very hard of hearing. He appears to indicate that he is otherwise feeling all right. He does indicate that chest pain has improved currently. Review of Systems Very difficult secondary to patient's hard of hearing status as well as using over the phone [place] interpretation PMF - History History Provided By: Medical Record - Medical History Medical History: Medical History (Last Reviewed 05/12/18 @ 00:27 by Edson Romero MD) HTN (hypertension) Hypercholesterolemia Upper GI bleed - Surgical History Surgical History: Surgical History (Last Reviewed 05/12/18 @ 00:27 by Edson Romero MD) No history of previous surgery - Family History Family History: Family History (Last Reviewed 05/12/18 @ 00:27 by Edson Romero MD) Other Family history normal - Tobacco History Second Hand Smoke Exposure: No Tobacco Use In Past 30 Days: No Smoking Status: Never smoker Tobacco Type: Cigarettes - Alcohol History How Often Do You Have a Drink Containing Alcohol: Unable to Obtain - Substance Use History Substance History: No History of Abuse - Travel History Recent Travel in the [place] Within the Last 8 Weeks: No Recent Travel Out of the Country Within the Last 8 Weeks: No - Immunization History Tetanus Immunization: Unsure Medications and Allergies Active Medications: Active Medications Carvedilol (Coreg) 12.5 mg PO BID [facility] Hydralazine HCl (Apresoline) 25 mg PO TID [facility] Isosorbide Mononitrate (Imdur) 30 mg PO DAILY@0700 [facility] Morphine Sulfate (Morphine Inj) 2 mg IV.PUSH Q4H PRN PRN Reason: PAIN SCALE 8 TO 10 Nitroglycerin (Nitro-Bid 2% Oint) 1 inch TOPICAL Q6HR [facility] Ondansetron HCl (Zofran Inj) 4 mg IV.PUSH Q6H PRN PRN Reason: NAUSEA Pantoprazole Sodium (Protonix) 40 mg PO BID [facility] Sodium Chloride (Ns Flush) 2 ml IV.FLUSH BID [facility] Sodium Chloride (Ns Flush) 2 ml IV.FLUSH PRN PRN PRN Reason: FLUSH AFTER USING IV ACCESS Allergies Allergy/AdvReac Type Severity Reaction Status Date / Time No Known Allergies Allergy Verified 05/11/18 13:20 Exam Vital signs: Vital Signs 05/11/18 13:07 05/11/18 20:47 Temperature 98.3 F Pulse Rate 80 80 Respiratory Rate 16 20 Blood Pressure 130/67 145/69 H Pulse Oximetry 96 97 Intake & Output 05/11/18 05/11/18 05/12/18 06:59 18:59 06:59 Weight 52.163 kg Narrative: GENERAL: Patient sitting up in bed. Appears comfortable. Very hard of hearing. Unable to hear question about a year, however he is currently oriented x2. SKIN: Warm and dry. HEAD: Atraumatic. Normocephalic. EYES: Pupils equal and round. No scleral icterus. No injection or drainage. ENT: No nasal bleeding or discharge. Mucous membranes pink and moist. NECK: Trachea midline. No JVD. CARDIOVASCULAR: Regular rate and rhythm. RESPIRATORY: No accessory muscle use. Clear to auscultation. Breath sounds equal bilaterally. GASTROINTESTINAL: Abdomen soft, non-tender, nondistended. Hepatic and splenic margins not palpable. MUSCULOSKELETAL: Extremities without clubbing, cyanosis, or edema. No obvious deformities. NEUROLOGICAL: Awake and alert. No obvious cranial nerve deficits. Motor grossly within normal limits. Five out of 5 muscle strength in the arms and legs. Normal speech. PSYCHIATRIC: Appropriate mood and affect; insight and judgment normal. Results - Labs CBC & Chem 7: 05/11/18 13:38 05/11/18 13:38 Labs: Short CBC 05/11/18 Range/Units 13:38 WBC 7.1 (4.0-11.0) th/mm3 Hgb 12.8 L (13.0-17.0) gm/dL Hct 39.2 (39.0-51.0) % Plt Count 195 (150-450) th/mm3 [facility] 05/11/18 13:38 Sodium 137 Potassium 3.6 Chloride 100 Carbon Dioxide 26.5 BUN 29 H Creatinine 1.62 H Calcium 8.7 Cardiac Enzymes 05/11/18 05/11/18 Range/Units 13:38 22:40 Troponin I 0.05 0.05 (0.02-0.05) ng/mL Liver Function 05/11/18 Range/Units 13:38 Total Bilirubin 0.7 (0.2-1.0) mg/dL AST 60 H (15-37) U/L ALT 32 (12-78) U/L Alkaline Phosphatase 47 (45-117) U/L Albumin 3.5 (3.4-5.0) g/dL - Imaging Impressions Chest X-Ray 05/11/18 13:21 CONCLUSION: Negative examination. Caprini VTE Risk Assessment Caprini VTE Risk Assessment: Moderate/High Risk (score >= 2) Caprini Risk Assessment Model: Point Value = 1 Point Value = 2 Point Value = 3 Point Value = 5 Age 41-60 Minor surgery BMI > 25 kg/m2 Swollen legs Varicose veins or History of unexplained or recurrent spontaneous Oral contraceptives or hormone replacement Sepsis (< 1 month) Serious lung disease, including pneumonia (< 1 month) Abnormal pulmonary function Acute myocardial infarction Congestive heart failure (< 1 month) History of inflammatory bowel disease Medical patient at bed rest Age 61-74 Arthroscopic surgery Major open surgery (> 45 min) Laparoscopic surgery (> 45 min) Malignancy Confined to bed (> 72 hours) Immobilizing plaster cast Central venous access Age >= 75 History of VTE Family history of VTE Factor V Leiden Prothrombin [id number] Lupus anticoagulant Anticardiolipin antibodies Elevated serum homocysteine Heparin-induced thrombocytopenia Other congenital or acquired thrombophilia Stroke (< 1 month) Elective arthroplasty Hip, pelvis, or leg fracture Acute spinal cord injury (< 1 month) Prophylaxis Regimen: Total Risk Factor Score Risk Level Prophylaxis Regimen 0-1 Low Early ambulation 2 Moderate Order ONE of the following: *Sequential Compression Device (SCD) *Heparin 5000 units SQ BID 3-4 Higher Order ONE of the following medications: *Heparin 5000 units SQ TID *Enoxaparin/Lovenox 40 mg SQ daily (WT < 150 kg, CrCl > 30 mL/min) *Enoxaparin/Lovenox 30 mg SQ daily (WT < 150 kg, CrCl > 10-29 mL/min) *Enoxaparin/Lovenox 30 mg SQ BID (WT < 150 kg, CrCl > 30 mL/min) AND/OR *Sequential Compression Device (SCD) 5 or more Highest Order ONE of the following medications: *Heparin 5000 units SQ TID (Preferred with Epidurals) *Enoxaparin/Lovenox 40 mg SQ daily (WT < 150 kg, CrCl > 30 mL/min) *Enoxaparin/Lovenox 30 mg SQ daily (WT < 150 kg, CrCl > 10-29 mL/min) *Enoxaparin/Lovenox 30 mg SQ BID (WT < 150 kg, CrCl > 30 mL/min) AND *Sequential Compression Device (SCD) Assessment and Plan - Plan //Cardiac chest pain on admission With ST depression which is new. Chest x-ray with no acute findings Improved with Nitro-Bid. Continue Consult cardiology GI bleed Last admission patient with hematemesis, suspected upper GI bleed, refused workup. Will consult gastroenterology. This will need to be addressed prior to possibility of iliac stenting. CKD 3. Creatinine 1.6.. Baseline variable. Appears to be around baseline. We will continue to monitor. Discussed Condition With: Patient, nurse, ED physician. H&P: Quality - VTE Deep Vein Thrombosis/Pulmonary Embolism Present on Admission: No
[2018-05-12] MEDS: Isosorbide Mononitrate 30 MG ER 24HR Tablet (Imdur) PO SCH (06:40)
[2018-05-12] MEDS ORDERED: Isosorbide Mononitrate 30 MG ER 24HR Tablet (Imdur) PO SCH (07:00)
[2018-05-12] MEDS ORDERED: Carvedilol 12.5 MG Tablet PO SCH (09:00)
[2018-05-12] MEDS ORDERED: hydrALAZINE 25 MG Tablet PO SCH (09:00)
[2018-05-12 09:11] LABS: Baso % (Auto) 0.6 % (0.0-2.0); Eos # (Auto) 0.1 th/mm3 (0.0-0.4); Eos % (Auto) 1.6 % (0.0-4.0); Hematocrit 36.4 % (39.0-51.0); Hemoglobin 12.3 gm/dL (13.0-17.0); Lymph # (Auto) 0.8 th/mm3 (1.0-4.8); Lymph % (Auto) 13.9 % (9.0-44.0); Mean Corpuscular HGB Conc 33.8 % (32.0-36.0); Mean Corpuscular Hemoglobin 29.1 pg (27.0-34.0); Mean Corpuscular Volume 86.1 fL (80.0-100.0); Mean Platelet Volume 8.1 fL (7.0-11.0); Mono # (Auto) 0.6 th/mm3 (0.0-0.9); Mono % (Auto) 9.8 % (0.0-8.0); Neut # (Auto) 4.3 th/mm3 (1.8-7.7); Neut % (Auto) 74.1 % (16.0-70.0); Platelet Count 190 th/mm3 (150-450); Red Blood Count 4.23 mil/mm3 (4.50-5.90); Red Cell Distribution Width 14.1 % (11.6-17.2); White Blood Count 5.8 th/mm3 (4.0-11.0)
[2018-05-12 09:35] LABS: Calcium 8.4 mg/dL (8.5-10.1); Carbon Dioxide 24.1 meq/L (21.0-32.0); Potassium 3.4 meq/L (3.5-5.1)
[2018-05-12] MEDS: hydrALAZINE 25 MG Tablet PO SCH ×3 (09:35→19:49)
--- NOTE | 2018-05-12 10:22 | P.CONCA ---
History of Present Illness Service: Cardiology covering for Dr. Youngblood Consult date: 05/12/18 Requesting Physician: Edson Romero Reason for Consult: Chest pain Primary Care Provider: Nicolás Espinoza MD Chief Complaint: Chest pain History of Present Illness: This is a 83-year-old Stateless male who was discharged on leaving AMA. Information is obtained through his daughter. There is a communication barrier secondary to his speaking Stateless as well as having a difficult hearing. Per his daughter and he refused medical care I left on night started feeling worse and having chest pain so returned to the hospital on Monday afternoon. He was also complaining of dizziness, no shortness of breath no edema. He he was recently hospitalized from 05/06 through 05/10 with a non- ST elevated [place] as well as a GI bleed. Review of Systems Somewhat limited secondary to the language barrier information is received to the daughter who is at the bedside she states that he has complained of some substernal chest pain off and on, some dizziness, he did not pass out. Denies nausea or diaphoresis. other PMFSH - History History Provided By: Patient, Family Member - Medical History Medical History: Medical History (Last Reviewed 05/12/18 @ 00:27 by Edson Romero MD) HTN (hypertension) Hypercholesterolemia Upper GI bleed - Surgical History Surgical History: Surgical History (Last Reviewed 05/12/18 @ 00:27 by Edson Romero MD) No history of previous surgery - Family History Family History: Family History (Last Reviewed 05/12/18 @ 00:27 by Edson Romero MD) Other Family history normal - Tobacco History Second Hand Smoke Exposure: No Tobacco Use In Past 30 Days: No Smoking Status: Never smoker Tobacco Type: Cigarettes - Alcohol History How Often Do You Have a Drink Containing Alcohol: Never - Substance Use History Substance History: No History of Abuse - Travel History Recent Travel in the [place] Within the Last 8 Weeks: No Recent Travel Out of the Country Within the Last 8 Weeks: No - Immunization History Tetanus Immunization: Unsure Medications and Allergies Allergies Allergy/AdvReac Type Severity Reaction Status Date / Time No Known Allergies Allergy Verified 05/11/18 13:20 Active Medications: Active Medications Carvedilol (Coreg) 12.5 mg PO BID [facility] Last Admin: 05/12/18 09:35 Dose: 12.5 mg Hydralazine HCl (Apresoline) 25 mg PO TID [facility] Last Admin: 05/12/18 09:35 Dose: 25 mg Isosorbide Mononitrate (Imdur) 30 mg PO DAILY@0700 [facility] Last Admin: 05/12/18 06:40 Dose: 30 mg Morphine Sulfate (Morphine Inj) 2 mg IV.PUSH Q4H PRN PRN Reason: PAIN SCALE 8 TO 10 Nitroglycerin (Nitro-Bid 2% Oint) 1 inch TOPICAL Q6HR [facility] Last Admin: 05/12/18 06:40 Dose: 1 inch Ondansetron HCl (Zofran Inj) 4 mg IV.PUSH Q6H PRN PRN Reason: NAUSEA Pantoprazole Sodium (Protonix) 40 mg PO BID [facility] Last Admin: 05/12/18 09:35 Dose: 40 mg Sodium Chloride (Ns Flush) 2 ml IV.FLUSH BID [facility] Last Admin: 05/12/18 09:35 Dose: 2 ml Sodium Chloride (Ns Flush) 2 ml IV.FLUSH PRN PRN PRN Reason: FLUSH AFTER USING IV ACCESS Exam Vital signs: Vital Signs 05/11/18 13:07 05/11/18 20:47 05/12/18 00:00 Temperature 98.3 F 98.1 F Pulse Rate 80 80 80 Respiratory Rate 16 20 14 Blood Pressure 130/67 145/69 H 122/63 Pulse Oximetry 96 97 94 L 05/12/18 03:50 05/12/18 08:00 Temperature 98.8 F 98.2 F Pulse Rate 78 91 H Respiratory Rate 14 20 Blood Pressure 109/64 150/75 H Pulse Oximetry 93 L 92 L Intake & Output 05/11/18 05/12/18 05/12/18 18:59 06:59 18:59 Weight 52.163 kg 52.163 kg Other: # Voids 1 Weight On Admission 52.163 kg - Constitutional no acute distress - Routine HEENT Exam Head: Present: normocephalic, atraumatic ENT: Present: mucous membranes dry - Routine Neck Exam Absent: JVD - Routine Respiratory Exam Present: decreased breath sounds, CTA bilaterally - Routine Cardiovascular Exam Present: S1, S2 - Routine Abdominal Exam Present: soft - Routine Extremities Exam Present: pulses intact. Absent: edema - Routine Skin Exam Present: dry, warm. Absent: cyanosis - Routine Neurological Exam Present: alert Difficult to assess secondary to language barrier but appears oriented Results 05/12/18 08:56 05/12/18 08:56 Cardiac Enzymes 05/11/18 05/11/18 05/12/18 Range/Units 13:38 22:40 02:46 AST 60 H (15-37) U/L Troponin I 0.05 0.05 0.05 (0.02-0.05) ng/mL Coagulation 05/11/18 Range/Units 13:38 PT 10.6 (9.8-11.6) sec CBC 05/11/18 05/12/18 Range/Units 13:38 08:56 WBC 7.1 5.8 (4.0-11.0) th/mm3 RBC 4.43 L 4.23 L (4.50-5.90) mil/mm3 Hgb 12.8 L 12.3 L (13.0-17.0) gm/dL Hct 39.2 36.4 L (39.0-51.0) % Plt Count 195 190 (150-450) th/mm3 Neut # (Auto) 5.5 4.3 (1.8-7.7) th/mm3 Lymph # (Auto) 0.9 L 0.8 L (1.0-4.8) th/mm3 [place] # (Auto) 0.6 0.6 (0.0-0.9) th/mm3 Eos # (Auto) 0.1 0.1 (0.0-0.4) th/mm3 Baso # (Auto) 0.0 0.0 (0.0-0.2) th/mm3 Comprehensive Metabolic Panel 05/11/18 05/12/18 Range/Units 13:38 08:56 Sodium 137 139 (136-145) meq/L Potassium 3.6 3.4 L (3.5-5.1) meq/L Chloride 100 103 (98-107) meq/L Carbon Dioxide 26.5 24.1 (21.0-32.0) meq/L BUN 29 H 35 H (7-18) mg/dL Creatinine 1.62 H 1.58 H (0.60-1.30) mg/dL Calcium 8.7 8.4 L (8.5-10.1) mg/dL AST 60 H (15-37) U/L ALT 32 (12-78) U/L Alkaline Phosphatase 47 (45-117) U/L Total Protein 7.5 D (6.4-8.2) g/dL Albumin 3.5 (3.4-5.0) g/dL Intake and Output 05/11/18 05/12/18 05/12/18 22:59 06:59 14:59 Other: # Voids 1 Weight 52.163 kg Weight On Admission 52.163 kg Patient Weight 05/13/18 06:59 Weight 52.163 kg - Imaging and Cardiology Imaging: Impressions Chest X-Ray 05/11/18 13:21 CONCLUSION: Negative examination. EKG results: image reviewed EKG interpretations - Dysrhythmias Sinus rhythms and dysrhythmias: sinus rhythm Assessment and Plan - Plan 1. chest pain- Discussed the case with Dr. Youngblood who indicated that he saw the patient in the hospital and the patient never followed up with him in the office. Apparently patient also signed out AGAINST MEDICAL ADVICE on last admission [ according to the notes]. Dr. Youngblood advised to request the professor of early childhood education on-call for the hospital to see Mr. Castro and evaluate and treat his cardiac care. Informed the patient's nurse. Thank you. Discussed Condition With: Nurse at the bedside patient and daughter
--- NOTE | 2018-05-12 11:18 | P.CONGI ---
History of Present Illness Consult date: 05/12/18 Consult reason: Possible GI bleed Chief complaint: Chest pain History of Present Illness: This is an 83-year-old male who came into the hospital for chest pain uncontrolled at home on 05/12/2018. It is noted in the record that patient was here in the hospital on 1020 through 1024 with non-ST elevation [place] and possible GI bleeding related to possible coffee-ground emesis. Gastroenterology was consulted and saw patient during that admission and offered further testing with EGD once patient was stable from a cardiac perspective but patient refused both cardiac workup and therefore GI workup was not completed. There was a family meeting and discussions with the attending on this past admission and it was felt that patient was able to make his own decisions and continued to refuse any further cardiac workup. There is currently no family present during my exam but patient is resting in the bed eyes closed lying comfortable and denies any acute abdominal pain, nausea vomiting, or chest pain for now. Gastroenterology has been consulted again to follow for any acute GI bleeding. Hemoglobin currently 12.8, PT/INR 1, bilirubin and LFTs are normal, chest x-ray is unremarkable and patient has positive troponins .05 x 3. No previous EGD or colonoscopy known and no family history of colon cancer per the record. Review of Systems All other systems reviewed negative except as stated in HPI PMF - History History Provided By: Patient, Family Member - Medical History Medical History: Medical History (Last Reviewed 05/12/18 @ 00:27 by Edson Romero MD) HTN (hypertension) Hypercholesterolemia Upper GI bleed - Surgical History Surgical History: Surgical History (Last Reviewed 05/12/18 @ 00:27 by Edson Romero MD) No history of previous surgery - Family History Family History: Family History (Last Reviewed 05/12/18 @ 00:27 by Edson Romero MD) Other Family history normal - Tobacco History Second Hand Smoke Exposure: No Tobacco Use In Past 30 Days: No Smoking Status: Never smoker Tobacco Type: Cigarettes - Alcohol History How Often Do You Have a Drink Containing Alcohol: Never - Substance Use History Substance History: No History of Abuse - Travel History Recent Travel in the [place] Within the Last 8 Weeks: No Recent Travel Out of the Country Within the Last 8 Weeks: No - Immunization History Tetanus Immunization: Unsure Medications and Allergies Active Medications: Active Medications Carvedilol (Coreg) 12.5 mg PO BID [facility] Last Admin: 05/12/18 09:35 Dose: 12.5 mg Hydralazine HCl (Apresoline) 25 mg PO TID [facility] Last Admin: 05/12/18 09:35 Dose: 25 mg Isosorbide Mononitrate (Imdur) 30 mg PO DAILY@0700 [facility] Last Admin: 05/12/18 06:40 Dose: 30 mg Morphine Sulfate (Morphine Inj) 2 mg IV.PUSH Q4H PRN PRN Reason: PAIN SCALE 8 TO 10 Nitroglycerin (Nitro-Bid 2% Oint) 1 inch TOPICAL Q6HR [facility] Last Admin: 05/12/18 06:40 Dose: 1 inch Ondansetron HCl (Zofran Inj) 4 mg IV.PUSH Q6H PRN PRN Reason: NAUSEA Pantoprazole Sodium (Protonix) 40 mg PO BID [facility] Last Admin: 05/12/18 09:35 Dose: 40 mg Sodium Chloride (Ns Flush) 2 ml IV.FLUSH BID [facility] Last Admin: 05/12/18 09:35 Dose: 2 ml Sodium Chloride (Ns Flush) 2 ml IV.FLUSH PRN PRN PRN Reason: FLUSH AFTER USING IV ACCESS Allergies Allergy/AdvReac Type Severity Reaction Status Date / Time No Known Allergies Allergy Verified 05/11/18 13:20 Exam Vital signs: Vital Signs 05/11/18 13:07 05/11/18 20:47 05/12/18 00:00 Temperature 98.3 F 98.1 F Pulse Rate 80 80 80 Respiratory Rate 16 20 14 Blood Pressure 130/67 145/69 H 122/63 Pulse Oximetry 96 97 94 L 05/12/18 03:50 05/12/18 08:00 Temperature 98.8 F 98.2 F Pulse Rate 78 91 H Respiratory Rate 14 20 Blood Pressure 109/64 150/75 H Pulse Oximetry 93 L 92 L Intake & Output 05/11/18 05/12/18 05/12/18 18:59 06:59 18:59 Weight 52.163 kg 52.163 kg Other: # Voids 1 Weight On Admission 52.163 kg - Constitutional no acute distress, chronically ill appearing, somnolent - Routine HEENT Exam Head: Present: normocephalic ENT: Present: mucous membranes dry - Routine Respiratory Exam Present: accessory muscle use - Routine Cardiovascular Exam Present: S1, S2 - Routine Abdominal Exam Present: soft, normoactive bowel sounds (No abdominal pain to light palpation) - Routine Skin Exam Present: intact Results - Labs CBC & Chem 7: 05/12/18 08:56 05/12/18 08:56 Labs: Laboratory Results - last 24 hr 05/11/18 05/11/18 05/11/18 13:38 13:38 13:38 WBC 7.1 RBC 4.43 L Hgb 12.8 L Hct 39.2 MCV 88.4 MCH 28.9 MCHC 32.7 RDW 13.4 Plt Count 195 MPV 8.8 Neut % (Auto) 77.2 H Lymph % (Auto) 12.8 [place] % (Auto) 8.7 H Eos % (Auto) 1.1 Baso % (Auto) 0.2 Neut # (Auto) 5.5 Lymph # (Auto) 0.9 L [place] # (Auto) 0.6 Eos # (Auto) 0.1 Baso # (Auto) 0.0 WBC Differential . Differential Comment Auto diff final PT 10.6 INR 1.0 Sodium 137 Potassium 3.6 Chloride 100 Carbon Dioxide 26.5 Anion Gap 11 BUN 29 H Creatinine 1.62 H Estimated GFR 41 L Random Glucose 143 H Calcium 8.7 Total Bilirubin 0.7 AST 60 H ALT 32 Alkaline Phosphatase 47 Troponin I 0.05 Total Protein 7.5 D Albumin 3.5 TSH 05/11/18 05/12/18 05/12/18 22:40 02:46 08:56 WBC 5.8 RBC 4.23 L Hgb 12.3 L Hct 36.4 L MCV 86.1 MCH 29.1 MCHC 33.8 RDW 14.1 Plt Count 190 MPV 8.1 Neut % (Auto) 74.1 H Lymph % (Auto) 13.9 [place] % (Auto) 9.8 H Eos % (Auto) 1.6 Baso % (Auto) 0.6 Neut # (Auto) 4.3 Lymph # (Auto) 0.8 L [place] # (Auto) 0.6 Eos # (Auto) 0.1 Baso # (Auto) 0.0 WBC Differential . Differential Comment Auto diff final PT INR Sodium Potassium Chloride Carbon Dioxide Anion Gap BUN Creatinine Estimated GFR Random Glucose Calcium Total Bilirubin AST ALT Alkaline Phosphatase Troponin I 0.05 0.05 Total Protein Albumin TSH 05/12/18 05/12/18 08:56 08:56 WBC RBC Hgb Hct MCV MCH MCHC RDW Plt Count MPV Neut % (Auto) Lymph % (Auto) [place] % (Auto) Eos % (Auto) Baso % (Auto) Neut # (Auto) Lymph # (Auto) [place] # (Auto) Eos # (Auto) Baso # (Auto) WBC Differential Differential Comment PT INR Sodium 139 Potassium 3.4 L Chloride 103 Carbon Dioxide 24.1 Anion Gap 12 BUN 35 H Creatinine 1.58 H Estimated GFR 42 L Random Glucose 96 Calcium 8.4 L Total Bilirubin AST ALT Alkaline Phosphatase Troponin I Total Protein Albumin TSH 0.955 - Imaging Impressions Chest X-Ray 05/11/18 13:21 CONCLUSION: Negative examination. Assessment and Plan - Plan 83-year-old male who came into the hospital for chest pain uncontrolled at home on 05/12/2018. It is noted in the record that patient was here in the hospital on 1021 through 1025 with non-ST elevation AR and possible GI bleeding related to possible coffee-ground emesis. Gastroenterology was consulted and saw patient during that admission and offered further testing with EGD once patient was stable from a cardiac perspective but patient refused both cardiac workup and therefore GI workup was not completed. There was a family meeting and discussions with the attending on this past admission and it was felt that patient was able to make his own decisions and continued to refuse any further cardiac workup. There is currently no family present during my exam but patient is resting in the bed eyes closed lying comfortable and denies any acute abdominal pain, nausea vomiting, or chest pain for now. Gastroenterology has been consulted again to follow for any acute GI bleeding. Hemoglobin currently 12.8, PT/INR 1, bilirubin and LFTs are normal, chest x-ray is unremarkable and patient has positive troponins .05 x 3. History of possible GI bleeding with coffee-ground emesis x1 event. Currently it appears patient has had no coffee-ground emesis this hospital event. patient went home on 05/10/2018 with GI workup in process. With chest pain and non- STEMI, so cardiac workup was in process to stabilize before EGD was performed. Patient refused cardiac cath and EGD and was sent home per his wishes. He lives with a family member and again started having chest pain at home and was brought back to the emergency room for further workup Currently there is no obvious upper GI bleeding or melena stools and hemoglobin is 12.8 which seems to be around his norm from the past admission 12.5. Chest pain recent non-STEMI, currently being worked up per cardiology. Appreciate input There is currently no family present, cardiac consultation and workup is now in progress. She will need cardiac clearance before any further GI evaluation with procedures can be done Plan Diet per attending, recommend soft foods nongreasy or spicy and hydration. Monitor for any cough with food. Monitor labs for any obvious bleeding and transfuse if necessary Bowel regimen PPI We will consider EGD if patient is cleared per cardiology Further recommendations to follow Patient was seen per myself and Dr. Santos, note was written on his behalf
[2018-05-12] MEDS: Sod Chloride 0.9% Inj 1,000 ML IV.CONT SCH (19:49)
--- NOTE | 2018-05-12 22:48 | MB ---
cc: Eliz Souza MD DATE: 05/12/2018 REASON FOR CONSULTATION: Chest pain. HISTORY OF PRESENT ILLNESS: Mr. Castro is an 83-year-old, [place] man who was apparently admitted earlier in the week and had indeterminate troponin felt consistent with a troponin of 0.25. The patient subsequently left AMA. He apparently then returned, as he was having ongoing episodes of chest pain. The patient currently indicates that he is having intermittent episodes of discomfort, but is too "too tired to talk." There is no family here. Thus, the rest is the rest of his history, as per the record. PAST MEDICAL HISTORY: Includes upper gastrointestinal bleed, hypertension, hyperlipidemia, chest pain. FAMILY HISTORY: Unobtainable. SOCIAL HISTORY: Unobtainable. REVIEW OF SYSTEMS: Unobtainable. CURRENT MEDICATIONS: Per the record. OUTPATIENT MEDICATIONS: 1. Carvedilol 12.5 mg b.i.d. 2. Hydralazine 25 mg t.i.d. 3. Imdur 30 mg a day. 4. Nitro-Bid ointment. PHYSICAL EXAMINATION: VITAL SIGNS: 97.5, 80, 138/66. GENERAL: He is a thin, elderly man who is in no apparent distress. He is able to converse in Swazi at will. LUNGS: Clear to auscultation. CARDIOVASCULAR: He has a normal S1 and S2. I did not appreciate any murmurs, rubs or gallops. ABDOMEN: Soft. EXTREMITIES: Free from edema. LABORATORY DATA: Significant for a creatinine of 1.62 with serial troponins of 0.05/0.05/0.05. His hemoglobin is 12.3. Echocardiogram from 05/09/2018 shows normal LV function at 65-70%. There is moderate aortic regurgitation. EKG shows normal sinus rhythm with lateral T-wave inversion and PVCs. IMPRESSION: Chest pain - The patient is having intermittent episodes of chest pain, ST depression on ECG and had elevated troponins earlier in the week. Per the records well outlined in palliative care, the patient refused any cardiac catheterization and subsequently left AMA. The patient has returned, but essentially is refusing to cooperate with a history and specifically when asked about procedures, declines. At this point, I would continue with conservative medical management. I do not feel we need to repeat an echocardiogram as this was done just a few days ago. If the patient would like a cardiac catheterization it would be reasonable to entertain that thought, though he is at markedly elevated risk with his renal insufficiency and creatinine of 1.6. Additionally, he has had some hematemesis and is being evaluated by GI for GI bleed. Gastrointestinal bleed - The patient has essentially refused cardiac catheterization. His EF was normal on echocardiogram. It would not be totally unreasonable to proceed with EGD to evaluate his hematemesis, if the patient is agreeable with this. Of course, he would be at higher risk for complications. Of note, the Lovenox and Lovenox/heparin and aspirin are felt relatively contraindicated in the setting of gastrointestinal bleed. MD DANIELLE Gorman/gurvinder , 04:31 PM , 04:41 PM
--- NOTE | 2018-05-13 00:07 | ECG ---
Date Performed: 05/12/2018 Time Performed: 01:35:31 PTAGE: 83 years EKG: Sinus rhythm WITH OCCASIONAL VENTRICULAR PREMATURE COMPLEXES MARKED LEFT AXIS DEVIATION ST DEVIATION AND MODERATE T-WAVE ABNORMALITY, CONSIDER LATERAL ISCHEMIA ABNORMAL ECG PREVIOUS TRACING : 05/11/2018 21.12 Compared to previous tracing, premature ventricular complex es are new DOCTOR: Milton Sarah Interpretating Date/Time 05/13/2018 00:06:22
--- NOTE | 2018-05-13 00:25 | ECG ---
Date Performed: 05/11/2018 Time Performed: 21:12:01 PTAGE: 83 years EKG: Sinus rhythm MARKED LEFT AXIS DEVIATION POSSIBLE RIGHT VENTRICULAR CONDUCTION DELAY LEFT VENTRICULAR HYPERTROPHY AND ST-T CHANGE CONSISTENT WITH REPOLARIZATION ABNORMALITY ABNORMAL ECG PREVIOUS TRACING : 05/11/2018 13.31 Since the previous tracing, no significant change noted DOCTOR: Milton Sarah Interpretating Date/Time 05/13/2018 00:24:54
--- NOTE | 2018-05-13 00:46 | ECG ---
Date Performed: 05/11/2018 Time Performed: 13:31:23 PTAGE: 83 years EKG: Sinus rhythm MARKED LEFT AXIS DEVIATION LEFT VENTRICULAR HYPERTROPHY AND ST-T CHANGE CONSISTENT WITH REPOLARIZATI ON ABNORMALITY ABNORMAL ECG PRIOR ECG 05/06/1018: Since the PREVIOUS TRACING , no significant change noted DOCTOR: Milton Sarah Interpretating Date/Time 05/13/2018 00:44:48
[2018-05-13 04:21] LABS: Baso % (Auto) 0.4 % (0.0-2.0); Eos # (Auto) 0.1 th/mm3 (0.0-0.4); Eos % (Auto) 2.2 % (0.0-4.0); Hematocrit 36.6 % (39.0-51.0); Hemoglobin 12.2 gm/dL (13.0-17.0); Lymph # (Auto) 0.7 th/mm3 (1.0-4.8); Lymph % (Auto) 14.9 % (9.0-44.0); Mean Corpuscular HGB Conc 33.4 % (32.0-36.0); Mean Corpuscular Hemoglobin 29.3 pg (27.0-34.0); Mean Corpuscular Volume 87.7 fL (80.0-100.0); Mean Platelet Volume 8.6 fL (7.0-11.0); Mono # (Auto) 0.6 th/mm3 (0.0-0.9); Mono % (Auto) 12.1 % (0.0-8.0); Neut # (Auto) 3.5 th/mm3 (1.8-7.7); Neut % (Auto) 70.4 % (16.0-70.0); Platelet Count 170 th/mm3 (150-450); Red Blood Count 4.17 mil/mm3 (4.50-5.90); White Blood Count 4.9 th/mm3 (4.0-11.0)
[2018-05-13 04:46] LABS: Carbon Dioxide 23.1 meq/L (21.0-32.0); Potassium 3.2 meq/L (3.5-5.1)
[2018-05-13] MEDS: Isosorbide Mononitrate 30 MG ER 24HR Tablet (Imdur) PO SCH (06:52)
--- NOTE | 2018-05-13 08:04 | P.PNCA ---
Subjective Interval history: Pt without complaints Medications and Allergies Active Medications: Active Medications Carvedilol (Coreg) 12.5 mg PO BID [facility] Last Admin: 05/12/18 21:20 Dose: 12.5 mg Hydralazine HCl (Apresoline) 25 mg PO TID [facility] Last Admin: 05/12/18 19:49 Dose: 25 mg Sodium Chloride (Ns Inj) 1,000 mls @ 42 mls/hr IV.CONT .[id number] [facility] Last Admin: 05/12/18 19:49 Dose: 42 mls/hr Isosorbide Mononitrate (Imdur) 30 mg PO DAILY@0700 [facility] Last Admin: 05/13/18 06:52 Dose: 30 mg Morphine Sulfate (Morphine Inj) 2 mg IV.PUSH Q4H PRN PRN Reason: PAIN SCALE 8 TO 10 Nitroglycerin (Nitro-Bid 2% Oint) 1 inch TOPICAL Q6HR [facility] Last Admin: 05/13/18 06:52 Dose: 1 inch Ondansetron HCl (Zofran Inj) 4 mg IV.PUSH Q6H PRN PRN Reason: NAUSEA Pantoprazole Sodium (Protonix) 40 mg PO BID [facility] Last Admin: 05/12/18 21:20 Dose: 40 mg Sodium Chloride (Ns Flush) 2 ml IV.FLUSH BID [facility] Last Admin: 05/12/18 21:20 Dose: Not Given Sodium Chloride (Ns Flush) 2 ml IV.FLUSH PRN PRN PRN Reason: FLUSH AFTER USING IV ACCESS Allergies Allergy/AdvReac Type Severity Reaction Status Date / Time No Known Allergies Allergy Verified 05/11/18 13:20 Physical Exam Vital signs: Vital Signs 05/12/18 08:00 05/12/18 08:15 05/12/18 12:07 Temperature 98.1 F 97.9 F Pulse Rate 87 90 86 Respiratory Rate 12 18 Blood Pressure 118/58 L 130/66 Pulse Oximetry 93 L 94 L 05/12/18 15:22 05/12/18 20:00 05/12/18 23:28 Temperature 97.5 F L 98.3 F 97.7 F Pulse Rate 80 76 71 Respiratory Rate 12 16 18 Blood Pressure 138/66 158/76 H 123/65 Pulse Oximetry 94 L 100 95 05/13/18 04:00 05/13/18 07:48 Temperature 97.7 F 98.2 F Pulse Rate 66 83 Respiratory Rate 18 16 Blood Pressure 158/68 H 143/65 H Pulse Oximetry 95 93 L Intake & Output 05/12/18 05/13/18 05/13/18 18:59 06:59 18:59 Intake Total 50 / 50 Balance 50 / 50 Weight 52.163 kg Intake: Oral 50 / 50 Other: # Voids 2 Date of Last Bowel Movement 05/04/18 Weight On Admission 52.163 kg - Constitutional no acute distress - Routine Respiratory Exam Present: CTA bilaterally - Routine Cardiovascular Exam Present: RRR Comments: no murmurs, no edema Results 05/13/18 03:53 05/13/18 03:53 Cardiac Enzymes 05/11/18 05/11/18 05/12/18 Range/Units 13:38 22:40 02:46 AST 60 H (15-37) U/L Troponin I 0.05 0.05 0.05 (0.02-0.05) ng/mL Coagulation 05/11/18 Range/Units 13:38 PT 10.6 (9.8-11.6) sec CBC 05/11/18 05/12/18 05/13/18 Range/Units 13:38 08:56 03:53 WBC 7.1 5.8 4.9 (4.0-11.0) th/mm3 RBC 4.43 L 4.23 L 4.17 L (4.50-5.90) mil/mm3 Hgb 12.8 L 12.3 L 12.2 L (13.0-17.0) gm/dL Hct 39.2 36.4 L 36.6 L (39.0-51.0) % Plt Count 195 190 170 (150-450) th/mm3 Neut # (Auto) 5.5 4.3 3.5 (1.8-7.7) th/mm3 Lymph # (Auto) 0.9 L 0.8 L 0.7 L (1.0-4.8) th/mm3 Charles # (Auto) 0.6 0.6 0.6 (0.0-0.9) th/mm3 Eos # (Auto) 0.1 0.1 0.1 (0.0-0.4) th/mm3 Baso # (Auto) 0.0 0.0 0.0 (0.0-0.2) th/mm3 Comprehensive Metabolic Panel 05/11/18 05/12/18 05/13/18 Range/Units 13:38 08:56 03:53 Sodium 137 139 141 (136-145) meq/L Potassium 3.6 3.4 L 3.2 L (3.5-5.1) meq/L Chloride 100 103 105 (98-107) meq/L Carbon Dioxide 26.5 24.1 23.1 (21.0-32.0) meq/L BUN 29 H 35 H 38 H (7-18) mg/dL Creatinine 1.62 H 1.58 H 1.61 H (0.60-1.30) mg/dL Calcium 8.7 8.4 L 8.0 L (8.5-10.1) mg/dL AST 60 H (15-37) U/L ALT 32 (12-78) U/L Alkaline Phosphatase 47 (45-117) U/L Total Protein 7.5 D (6.4-8.2) g/dL Albumin 3.5 (3.4-5.0) g/dL Intake and Output 05/12/18 05/13/18 05/13/18 22:59 06:59 14:59 Intake Total 50 / 50 Balance 50 / 50 Intake: Oral 50 / 50 Other: # Voids 2 Date of Last Bowel Movement 05/04/18 - Imaging and Cardiology Imaging: Impressions Chest X-Ray 05/11/18 13:21 CONCLUSION: Negative examination. Assessment and Plan - Plan Atypical CP- none today. enzymes negative now, recent minor elevation and EF normal. -med management as he is now a DNR GIB- reasonable for EGD if felt appropriate, though he will be at moderate CV risk CKD anemia- DNR noncompliance available PRN
--- NOTE | 2018-05-13 08:29 | P.PN ---
Subjective Interval history: Follow-up on patient with recent admission for NSTEMI and suspected upper GI bleed. Patient seen and examined. Utilized translation line in order to communicate with the patient in Polish. Even using the translation line, patient is very hard of hearing and communication is difficult. Patient states he feels better. He says he slept well last night. Patient denies any complaints of chest pain. He has not had any episodes of vomiting or hematemesis. He denies any shortness of breath. He denies any nausea vomiting or abdominal pain. Physical Exam Vital signs: Vital Signs 05/12/18 12:07 05/12/18 15:22 05/12/18 20:00 Temperature 97.9 F 97.5 F L 98.3 F Pulse Rate 86 80 76 Respiratory Rate 18 12 16 Blood Pressure 130/66 138/66 158/76 H Pulse Oximetry 94 L 94 L 100 05/12/18 23:28 05/13/18 04:00 05/13/18 07:48 Temperature 97.7 F 97.7 F 98.2 F Pulse Rate 71 66 83 Respiratory Rate 18 18 16 Blood Pressure 123/65 158/68 H 143/65 H Pulse Oximetry 95 95 93 L Intake & Output 05/12/18 05/13/18 05/13/18 18:59 06:59 18:59 Intake Total 50 / 50 Balance 50 / 50 Weight 52.163 kg Intake: Oral 50 / 50 Other: # Voids 2 Date of Last Bowel Movement 05/04/18 Weight On Admission 52.163 kg Narrative: GENERAL: WDWN elderly Polish male patient, no acute distress. Sleeping but easily awakens to voice. Appears comfortable. Very hard of hearing. SKIN: Warm and dry. No generalized rash. HEENT: Atraumatic. Normocephalic. Pupils equal and round. No scleral icterus. No injection or drainage. No nasal bleeding or discharge. Mucous membranes pink and moist. NECK: Trachea midline. CARDIOVASCULAR: Regular rate and rhythm. RESPIRATORY: No accessory muscle use. Clear to auscultation. Breath sounds equal bilaterally. GASTROINTESTINAL: Abdomen soft, non-tender, nondistended. +BS. MUSCULOSKELETAL: Extremities without clubbing, cyanosis, or edema. No obvious deformities. NEUROLOGICAL: Awake and alert. No obvious cranial nerve deficits. Motor grossly within normal limits. Able to move all extremity spontaneously. Normal speech. PSYCHIATRIC: Appropriate mood and affect. Calm and cooperative Results - Labs CBC & Chem 7: 05/13/18 03:53 05/13/18 03:53 Laboratory Results - last 24 hr 05/12/18 05/12/18 05/12/18 08:56 08:56 08:56 WBC 5.8 RBC 4.23 L Hgb 12.3 L Hct 36.4 L MCV 86.1 MCH 29.1 MCHC 33.8 RDW 14.1 Plt Count 190 MPV 8.1 Neut % (Auto) 74.1 H Lymph % (Auto) 13.9 Garland % (Auto) 9.8 H Eos % (Auto) 1.6 Baso % (Auto) 0.6 Neut # (Auto) 4.3 Lymph # (Auto) 0.8 L Garland # (Auto) 0.6 Eos # (Auto) 0.1 Baso # (Auto) 0.0 WBC Differential . Differential Comment Auto diff final Sodium 139 Potassium 3.4 L Chloride 103 Carbon Dioxide 24.1 Anion Gap 12 BUN 35 H Creatinine 1.58 H Estimated GFR 42 L Random Glucose 96 Calcium 8.4 L TSH 0.955 05/13/18 05/13/18 03:53 03:53 WBC 4.9 RBC 4.17 L Hgb 12.2 L Hct 36.6 L MCV 87.7 MCH 29.3 MCHC 33.4 RDW 14.0 Plt Count 170 MPV 8.6 Neut % (Auto) 70.4 H Lymph % (Auto) 14.9 Garland % (Auto) 12.1 H Eos % (Auto) 2.2 Baso % (Auto) 0.4 Neut # (Auto) 3.5 Lymph # (Auto) 0.7 L Garland # (Auto) 0.6 Eos # (Auto) 0.1 Baso # (Auto) 0.0 WBC Differential . Differential Comment Auto diff final Sodium 141 Potassium 3.2 L Chloride 105 Carbon Dioxide 23.1 Anion Gap 13 BUN 38 H Creatinine 1.61 H Estimated GFR 41 L Random Glucose 97 Calcium 8.0 L TSH Assessment and Plan - Plan 83-year-old Polish male recently hospitalized 05/06-05/10 with non-ST elevation RI, suspected upper GI bleeding due to hematemesis. Patient refused both EGD and cardiac catheterization. Admitted with complaints of worsening chest pain. Cardiac chest pain on admission recently admitted with NSTEMI With ST depression which is new. Chest x-ray with no acute findings Trops 0.05 x 3 recent Echo 05/09/18 EF 65-70%, grade 1 diastolic dysfunction Patient has no cardiac complaints today -Cardiology following, appreciate assistance. Recommends medical management at this time. -Continue on beta-alfredo, Imdur and Lipitor -Patient would likely benefit from daily baby aspirin however concern in light of recent suspected GI bleed GI bleed Last admission patient with hematemesis, suspected upper GI bleed, refused workup. -GI following, appreciate assistance. Hemoglobin has remained stable. Patient has not had any coffee-ground emesis, nausea or abdominal pain. Plan to follow- up with GI as outpatient. CKD 3 Creatinine 1.6.. Baseline variable. Appears to be around baseline. -Avoid nephrotoxic agents -Continue to monitor kidney function as indicated Hypokalemia K 3.2 -Give p.o. oral repletion -Repeat BMP in 2-3 days Dyslipidemia -Continue on statin therapy DVT prophylaxis -SCDs/CELENA hose -Chemical prophylaxis contraindicated in recent suspected GI bleed Discharge patient to home Condition on discharge: Improved Heart healthy Diet as tolerated Activity per PT recommendations Rx written: Lipitor Follow-up with primary care physician, inspector casing and urology surgeon Code Status: DNR Discussed Condition With: patient, nursing staff, Dr. Orozco
[2018-05-13 08:32] LABS: Chol/HDL Ratio 5.94 Ratio; HDL Cholesterol 42.2 mg/dL (40.0-60.0)
--- NOTE | 2018-05-13 09:04 | P.PNGI ---
Subjective Interval history: Sleeping no shortness of breath no abdominal pain no nausea no vomiting Physical Exam Vital signs: Vital Signs 05/12/18 12:07 05/12/18 15:22 05/12/18 20:00 Temperature 97.9 F 97.5 F L 98.3 F Pulse Rate 86 80 76 Respiratory Rate 18 12 16 Blood Pressure 130/66 138/66 158/76 H Pulse Oximetry 94 L 94 L 100 05/12/18 23:28 05/13/18 04:00 05/13/18 07:48 Temperature 97.7 F 97.7 F 98.2 F Pulse Rate 71 66 83 Respiratory Rate 18 18 16 Blood Pressure 123/65 158/68 H 143/65 H Pulse Oximetry 95 95 93 L Intake & Output 05/12/18 05/13/18 05/13/18 18:59 06:59 18:59 Intake Total 50 / 50 Balance 50 / 50 Weight 52.163 kg Intake: Oral 50 / 50 Other: # Voids 2 Date of Last Bowel Movement 05/04/18 Weight On Admission 52.163 kg - Constitutional no acute distress - Routine HEENT Exam Head: Present: normocephalic ENT: Present: mucous membranes moist - Routine Respiratory Exam Present: accessory muscle use (No shortness of breath) - Routine Abdominal Exam Present: soft, normoactive bowel sounds Results - Labs CBC & Chem 7: 05/13/18 03:53 05/13/18 03:53 Laboratory Results - last 24 hr 05/12/18 05/12/18 05/12/18 08:56 08:56 08:56 WBC 5.8 RBC 4.23 L Hgb 12.3 L Hct 36.4 L MCV 86.1 MCH 29.1 MCHC 33.8 RDW 14.1 Plt Count 190 MPV 8.1 Neut % (Auto) 74.1 H Lymph % (Auto) 13.9 Hall % (Auto) 9.8 H Eos % (Auto) 1.6 Baso % (Auto) 0.6 Neut # (Auto) 4.3 Lymph # (Auto) 0.8 L Hall # (Auto) 0.6 Eos # (Auto) 0.1 Baso # (Auto) 0.0 WBC Differential . Differential Comment Auto diff final Sodium 139 Potassium 3.4 L Chloride 103 Carbon Dioxide 24.1 Anion Gap 12 BUN 35 H Creatinine 1.58 H Estimated GFR 42 L Random Glucose 96 Calcium 8.4 L Triglycerides Cholesterol LDL Cholesterol, Calc HDL Cholesterol Cholesterol/HDL Ratio TSH 0.955 05/13/18 05/13/18 05/13/18 03:53 03:53 03:53 WBC 4.9 RBC 4.17 L Hgb 12.2 L Hct 36.6 L MCV 87.7 MCH 29.3 MCHC 33.4 RDW 14.0 Plt Count 170 MPV 8.6 Neut % (Auto) 70.4 H Lymph % (Auto) 14.9 Hall % (Auto) 12.1 H Eos % (Auto) 2.2 Baso % (Auto) 0.4 Neut # (Auto) 3.5 Lymph # (Auto) 0.7 L Hall # (Auto) 0.6 Eos # (Auto) 0.1 Baso # (Auto) 0.0 WBC Differential . Differential Comment Auto diff final Sodium 141 Potassium 3.2 L Chloride 105 Carbon Dioxide 23.1 Anion Gap 13 BUN 38 H Creatinine 1.61 H Estimated GFR 41 L Random Glucose 97 Calcium 8.0 L Triglycerides 140 Cholesterol 251 H LDL Cholesterol, Calc 181 H HDL Cholesterol 42.2 Cholesterol/HDL Ratio 5.94 TSH Assessment and Plan - Plan 83-year-old male who came into the hospital for chest pain uncontrolled at home on 05/12/2018. It is noted in the record that patient was here in the hospital on 1020 through 1024 with non-ST elevation SD and possible GI bleeding related to possible coffee-ground emesis. Gastroenterology was consulted and saw patient during that admission and offered further testing with EGD once patient was stable from a cardiac perspective but patient refused both cardiac workup and therefore GI workup was not completed. There was a family meeting and discussions with the attending on this past admission and it was felt that patient was able to make his own decisions and continued to refuse any further cardiac workup. There is currently no family present during my exam but patient is resting in the bed eyes closed lying comfortable and denies any acute abdominal pain, nausea vomiting, or chest pain for now. Gastroenterology has been consulted again to follow for any acute GI bleeding. Hemoglobin currently 12.8, PT/INR 1, bilirubin and LFTs are normal, chest x-ray is unremarkable and patient has positive troponins .05 x 3. History of possible GI bleeding with coffee-ground emesis x1 event. Currently it appears patient has had no coffee-ground emesis this hospital event. patient went home on 05/10/2018 with GI workup in process. With chest pain and non- STEMI, so cardiac workup was in process to stabilize before EGD was performed. Patient refused cardiac cath and EGD and was sent home per his wishes. He lives with a family member and again started having chest pain at home and was brought back to the emergency room for further workup Currently there is no obvious upper GI bleeding or melena stools and hemoglobin is 12.8 which seems to be around his norm from the past admission 12.5. Chest pain recent non-STEMI, currently being worked up per cardiology. Appreciate input There is currently no family present, cardiac consultation and workup is now in progress. She will need cardiac clearance before any further GI evaluation with procedures can be done 05/13/2018 patient is resting in the bed and this admission has showed no signs of GI bleeding. No coffee-ground emesis no nausea no abdominal pain Evaluated per cardiology, patient is DNR, medical management. Patient is moderate risk for any procedures. If patient has obvious bleeding will consider EGD and further workup otherwise for now monitor hemoglobin. Currently 12.2. Patient can also follow-up with GI outpatient office Consider palliative care if medical management and patient's comfort is the primary goal. Off for hospital stay Plan Diet per attending, recommend soft foods nongreasy or spicy and hydration. Cardiac diet Monitor labs Bowel regimen PPI Monitor for any obvious GI bleed Patient was seen per myself and Dr. Santos, note was written on his behalf
[2018-05-13] MEDS: hydrALAZINE 25 MG Tablet PO SCH ×2 (09:53→12:57)
[2018-05-13 11:39] VITALS: PULSE 71
[2018-05-13] MEDS: Sod Chloride 0.9% Inj 1,000 ML IV.CONT SCH (14:43)
[2018-05-13 16:06] VITALS: BP 123/57; RESP 12; TEMP 97.7; O2SAT 92
== END 2018-05-13 17:12 | disposition home health service (06) ==
LOC: NEDA 12:55 → NEPE 12:55 → NEPHCDU 23:29
PROVIDERS: ADMIT Hospitalist; ATTEND Hospitalist

== ENCOUNTER 2018-05-15 17:49 | Observation (INO) ==
[2018-05-15] MEDS ORDERED: Morphine Inj 4 MG/ML Vial IV.PUSH ONE (19:11)
[2018-05-15] MEDS ORDERED: Sod Chloride 0.9% Inj 1,000 ML IV.CONT SCH (19:15)
--- NOTE | 2018-05-15 19:19 | ED ---
HPI General Chief complaint: Abdominal Pain Stated complaint: constipation Time Seen by Provider: 05/15/18 18:58 Source: patient and family History of Present Illness HPI narrative: The patient is an 83 year old male who presents to the [facility] emergency department with a history of constipation that is been an issue for the last week. The patient reportedly was discharged from the hospital this past Monday after being diagnosed with a GI bleed and a non- STEMI. According to the patient's family, the patient has a follow-up appointment with a new primary care physician, Dr. Jessie Shearer scheduled for Monday. The patient has been on MiraLAX in the past, however the last time that he took this it caused vomiting, therefore he was afraid to take it at home for his constipation. The patient reportedly attempted to remove the stool with a spoon introduced into the rectum, and after doing this he started having rectal bleeding. The patient reports having rectal pain. He denies having any nausea or vomiting. He reports having a generalized abdominal discomfort and cramping associated with this today. He denies having any chest pain, chest pressure, or shortness of breath. On review of systems otherwise, the patient denies having any known recent fevers, cough, congestion, neck pain , urinary symptoms, or neurologic symptoms. Related Data Previous Rx's Medication Instructions Recorded carvedilol [Coreg] 12.5 mg PO BID #60 tab 05/10/18 hydralazine 25 mg PO TID #90 tab 05/10/18 isosorbide mononitrate 30 mg PO DAILY@0700 #30 tab 05/10/18 nitroglycerin [Nitrostat] 0.4 mg SUBLINGUAL DIRECTED PRN 05/10/18 #14 tab pantoprazole 40 mg PO BID #60 tab 05/10/18 atorvastatin [Lipitor] 10 mg PO HS #30 tab 05/13/18 Allergies Allergy/AdvReac Type Severity Reaction Status Date / Time No Known Allergies Allergy Verified 05/15/18 18:00 Review of Systems ROS: all other systems reviewed are negative [facility] Medical History Medical History Non-STEMI (non-ST elevated myocardial infarction) (Acute) HTN (hypertension) (Acute) Hypercholesterolemia (Acute) Upper GI bleed (Acute) Surgical History Surgical History No history of previous surgery (Acute) Family History Family History Other Family history normal Social History Social History Substance History: No History of Abuse Second Hand Smoke Exposure: No Smoking Status: Never smoker Tobacco Type: Cigarettes How Often Do You Have a Drink Containing Alcohol: Never Recent Travel in [facility] within the Last 8 Weeks: No Recent Out of Country Travel within the Last 8 Weeks: No Immunization History Tetanus Immunization: Unsure Exam Const General: cooperative, no acute distress and well developed Nutritional Appearance: well nourished Orientation: alert, awake and oriented x3 HENMT Head: normocephalic and atraumatic Nose: no nasal discharge and no epistaxis Mouth: moist mucous membranes Throat: posterior oropharynx normal and uvula midline Eyes Sclera: normal sclerae Pupils: PERRL Neck Neck: no meningeal signs, trachea midline and no JVD Resp Effort & Inspection: no use of accessory muscles Auscultation: clear to auscultation bilaterally Cardio Rate: regular rate Rhythm: regular rhythm Heart Sounds: no murmurs GI Inspection: non-distended Palpation: soft, no hepatosplenomegaly, no guarding, not rigid and tender in the epigastrum and suprapubicly; not in the LLQ, not in the RLQ, not in the LUQ , not in the RUQ, not at McBurney's point, not periumbilically, Bellamy's sign negative and with no rebound tenderness Auscultation: normal bowel sounds Rectal Exam: heme positive stool, hemorrhoids, No mass and tenderness Other: On examination stool was present in the rectal vault. The stool was covered in bright red blood. Back/Spine/Pelvis Back: no CVA tenderness Skin General: dry skin (warm) Neuro General: alert, awake, oriented x3 and other (Grossly nonfocal.) Speech: speech normal Motor: no movement abnormalities noted Extrem General: normal to inspection (2+ pulses in all 4 extremities.), no calf tenderness, no clubbing, no cyanosis and no edema Psych Mood: congruent mood Affect: normal affect Judgment: judgment good Course Consultations Consultation #1: The patient's case including history, pertinent physical examination findings, and laboratory studies were discussed with Dr. Romero. It was agreed that the patient would be admitted to the hospitalist service. Initial Documented Vital Signs Temperature 97.9 F 05/15/18 17:54 Pulse Rate 74 05/15/18 17:54 Respiratory Rate 19 05/15/18 17:54 Blood Pressure 141/63 H 05/15/18 17:54 Pulse Oximetry 95 05/15/18 17:54 Last Documented Vital Signs Temperature 97.9 F 05/15/18 17:54 Pulse Rate 75 05/15/18 19:49 Respiratory Rate 16 05/15/18 19:49 Blood Pressure 150/70 H 05/15/18 19:49 Pulse Oximetry 100 05/15/18 19:49 Medical Decision Making MDM Narrative Medical decision making narrative: During the course of the patient's emergency department visit, the patient's history, examination, and differential diagnosis were reviewed with the patient. The patient was placed on a rope coiling machine operator with oximetry and frequent blood pressure monitoring. The patient had IV access obtained and blood work sent for analysis. A diagnostic evaluation was started regarding the patient's abdominal pain and rectal bleeding. The patient was initially provided normal saline IV fluids. The patient was provided morphine 2 mg IV for pain, Zofran 4 mg IV for nausea. The patient's electronic medical record was reviewed. The patient initially was admitted related to coffee-ground emesis earlier in the month, however he refused endoscopy at that time. The patient was again admitted related to chest pain and GI was consulted again. From reviewing the record as the patient was not experiencing any abdominal pain or signs of GI bleeding with a stable hemoglobin, they did not recommend endoscopy at that point. They recommended follow-up as an outpatient after he was cleared by the admission nurse coordinator. Diagnostic studies today are remarkable for a normal white count of 6.2, hemoglobin has dropped over a point and is now 11 when 2 days ago was 12.2, platelets are 167, neutrophils 80.4, PT 10.5, PTT 26.2, chemistry is remarkable for sodium 135, BUN 33, creatinine 1.75 which is similar to prior evaluations considering his chronic renal insufficiency, glucose 124, lactic acid within normal limits at 1, CPK 335 with a normal MB percent, lipase is elevated at 778. The patient's troponin I is 0.03. The patient's abdominal flat and upright showed no evidence of free air, mild constipation, chest x-ray showed cardiomegaly and arterial sclerosis, no other acute abnormality atherosclerosis , no acute abnormality, CT scan of the abdomen and pelvis revealed no acute findings, mild colonic constipation, severe coronary artery calcifications, mild fatty liver, dependent atelectasis in the lungs. The patient's results were discussed with the patient, including the plan of care. I explained that further testing and/ or monitoring is indicated based on the patient's history, examination, and/ or laboratory findings. Therefore, I recommended admission for additional evaluation. The patient expressed understanding and was agreeable with this plan. The patient was admitted to the hospital in guarded condition and sent to a bed under the care of the [facility] service. Medical Screen Exam Complete: Yes Emergency Medical Condition: Yes Differential Diagnosis Differential Diagnosis: Rectal trauma, versus recurrent GI bleed, versus perforated bowel, versus constipation, versus diverticulitis Medical Records Medical records reviewed: Yes I reviewed the patient's medical records. Lab Data Lab results reviewed: Yes I reviewed the patient's lab results. Result diagrams: 05/15/18 19:35 05/15/18 19:35 Lab Results 05/15/18 05/15/18 05/15/18 Range/Units 19:35 19:35 19:35 WBC 6.2 (4.0-11.0) th/mm3 RBC 3.84 L (4.50-5.90) mil/mm3 Hgb 11.0 L (13.0-17.0) gm/dL Hct 33.5 L (39.0-51.0) % MCV 87.4 (80.0-100.0) fL MCH 28.7 (27.0-34.0) pg MCHC 32.8 (32.0-36.0) % RDW 14.0 (11.6-17.2) % Plt Count 167 (150-450) th/mm3 MPV 8.6 (7.0-11.0) fL Neut % (Auto) 80.4 H (16.0-70.0) % Lymph % (Auto) 10.0 (9.0-44.0) % Clay % (Auto) 6.9 (0.0-8.0) % Eos % (Auto) 2.1 (0.0-4.0) % Baso % (Auto) 0.6 (0.0-2.0) % Neut # (Auto) 5.0 (1.8-7.7) th/mm3 Lymph # (Auto) 0.6 L (1.0-4.8) th/mm3 Clay # (Auto) 0.4 (0.0-0.9) th/mm3 Eos # (Auto) 0.1 (0.0-0.4) th/mm3 Baso # (Auto) 0.0 (0.0-0.2) th/mm3 WBC Differential . Differential Comment Auto diff final PT 10.5 (9.8-11.6) sec INR 1.0 Ratio APTT 26.2 (24.3-30.1) sec Sodium 135 L (136-145) meq/L Potassium 4.1 (3.5-5.1) meq/L Chloride 104 (98-107) meq/L Carbon Dioxide 21.7 (21.0-32.0) meq/L Anion Gap 9 (5-15) meq/L BUN 33 H (7-18) mg/dL Creatinine 1.75 H (0.60-1.30) mg/dL Estimated GFR 37 L (>89) mL/min Random Glucose 124 H (74-106) mg/dL Lactic Acid (0.4-2.0) mmol/L Calcium 8.0 L (8.5-10.1) mg/dL Magnesium 1.9 (1.5-2.5) mg/dL Total Bilirubin 0.3 (0.2-1.0) mg/dL AST 27 (15-37) U/L ALT 26 (12-78) U/L Alkaline Phosphatase 48 (45-117) U/L Total Creatine Kinase 335 H (39-308) U/L CK-MB (CK-2) 3.4 (0.5-3.6) ng/mL CK-MB (CK-2) % 1.0 (0.0-4.0) % Troponin I 0.03 (0.02-0.05) ng/mL Total Protein 6.8 D (6.4-8.2) g/dL Albumin 3.2 L (3.4-5.0) g/dL Lipase 778 H (73-393) U/L 05/15/18 Range/Units 19:35 WBC (4.0-11.0) th/mm3 RBC (4.50-5.90) mil/mm3 Hgb (13.0-17.0) gm/dL Hct (39.0-51.0) % MCV (80.0-100.0) fL MCH (27.0-34.0) pg MCHC (32.0-36.0) % RDW (11.6-17.2) % Plt Count (150-450) th/mm3 MPV (7.0-11.0) fL Neut % (Auto) (16.0-70.0) % Lymph % (Auto) (9.0-44.0) % Clay % (Auto) (0.0-8.0) % Eos % (Auto) (0.0-4.0) % Baso % (Auto) (0.0-2.0) % Neut # (Auto) (1.8-7.7) th/mm3 Lymph # (Auto) (1.0-4.8) th/mm3 Clay # (Auto) (0.0-0.9) th/mm3 Eos # (Auto) (0.0-0.4) th/mm3 Baso # (Auto) (0.0-0.2) th/mm3 WBC Differential Differential Comment PT (9.8-11.6) sec INR Ratio APTT (24.3-30.1) sec Sodium (136-145) meq/L Potassium (3.5-5.1) meq/L Chloride (98-107) meq/L Carbon Dioxide (21.0-32.0) meq/L Anion Gap (5-15) meq/L BUN (7-18) mg/dL Creatinine (0.60-1.30) mg/dL Estimated GFR (>89) mL/min Random Glucose (74-106) mg/dL Lactic Acid 1.0 (0.4-2.0) mmol/L Calcium (8.5-10.1) mg/dL Magnesium (1.5-2.5) mg/dL Total Bilirubin (0.2-1.0) mg/dL AST (15-37) U/L ALT (12-78) U/L Alkaline Phosphatase (45-117) U/L Total Creatine Kinase (39-308) U/L CK-MB (CK-2) (0.5-3.6) ng/mL CK-MB (CK-2) % (0.0-4.0) % Troponin I (0.02-0.05) ng/mL Total Protein (6.4-8.2) g/dL Albumin (3.4-5.0) g/dL Lipase (73-393) U/L Imaging Data Radiologist's impression: Abdomen X-Ray 05/15/18 19:11 CONCLUSION: No acute findings. Mild constipation. Abdomen/Pelvis CT 05/15/18 19:11 CONCLUSION: 1. No acute findings. Mild colonic constipation. 2. Severe coronary calcifications. Mild fatty liver. Dependent atelectasis in the lungs. Chest X-Ray 05/15/18 19:11 CONCLUSION: Cardiomegaly and atherosclerosis. Discharge Plan Discharge Disposition Patient Disposition: 30 Still Patient Discharge Details Diagnosis: GI bleed, Constipation Physicians Team ED Provider: Denise Mcdaniel Primary Care Provider: Nicolás Espinoza Rxs /Orders / Referrals /Forms Prescriptions: No Action atorvastatin [Lipitor] 10 mg Tablet 10 mg PO HS Qty: 30 RF: 0 carvedilol [Coreg] 12.5 mg Tablet 12.5 mg PO BID Qty: 60 RF: 0 isosorbide mononitrate 30 mg Tablet Extended Release 24 Hr 30 mg PO DAILY@0700 Qty: 30 RF: 0 hydralazine 25 mg Tablet 25 mg PO TID Qty: 90 RF: 0 pantoprazole 40 mg Tablet,Delayed Release (Dr/Ec) 40 mg PO BID Qty: 60 RF: 0 nitroglycerin [Nitrostat] 0.4 mg Tablet, Sublingual 0.4 mg Sublingual DIRECTED PRN (Reason: Chest Pain) Qty: 14 RF: 0 Discharge Interventions Interventions: Vital Signs Last Done: 05/15/18 19:49 Status ED Status: With Doctor
[2018-05-15 19:44] LABS: Baso % (Auto) 0.6 % (0.0-2.0); Eos # (Auto) 0.1 th/mm3 (0.0-0.4); Eos % (Auto) 2.1 % (0.0-4.0); Hematocrit 33.5 % (39.0-51.0); Lymph # (Auto) 0.6 th/mm3 (1.0-4.8); Mean Corpuscular HGB Conc 32.8 % (32.0-36.0); Mean Corpuscular Hemoglobin 28.7 pg (27.0-34.0); Mean Corpuscular Volume 87.4 fL (80.0-100.0); Mean Platelet Volume 8.6 fL (7.0-11.0); Mono # (Auto) 0.4 th/mm3 (0.0-0.9); Mono % (Auto) 6.9 % (0.0-8.0); Neut % (Auto) 80.4 % (16.0-70.0); Platelet Count 167 th/mm3 (150-450); Red Blood Count 3.84 mil/mm3 (4.50-5.90); White Blood Count 6.2 th/mm3 (4.0-11.0)
[2018-05-15 19:54] LABS: Activated Partial Thrombo Time 26.2 sec (24.3-30.1); Prothrombin Time 10.5 sec (9.8-11.6)
[2018-05-15 20:07] LABS: Alanine Aminotransferase 26 U/L (12-78); Albumin 3.2 g/dL (3.4-5.0); Anion Gap 9 meq/L (5-15); Aspartate Aminotransferase 27 U/L (15-37); Blood Urea Nitrogen 33 mg/dL (7-18); Carbon Dioxide 21.7 meq/L (21.0-32.0); Chloride 104 meq/L (98-107); Glomerular Filtration Rate 37 mL/min (>89); Glucose,Random 124 mg/dL (74-106); Lipase 778 U/L (73-393); Magnesium 1.9 mg/dL (1.5-2.5); Potassium 4.1 meq/L (3.5-5.1); Sodium 135 meq/L (136-145)
[2018-05-15 20:18] LABS: Alkaline Phosphatase 48 U/L (45-117); Creatine Kinase 335 U/L (39-308); Total Protein 6.8 g/dL (6.4-8.2); Troponin I 0.03 ng/mL (0.02-0.05)
--- NOTE | 2018-05-15 20:34 | XR ---
EXAM DATE: 05/15/2018 8:31 PM EDT AGE/SEX: 83 years / Male INDICATIONS: Constipation. CLINICAL DATA: This is the patient's initial encounter. Patient reports that signs and symptoms have been present for 1 week and indicates a pain score of 9/10. MEDICAL/SURGICAL HISTORY: None. None. COMPARISON: No prior exams available for comparison. FINDINGS: Supine and upright views of the abdomen were performed. The abdominal bowel gas pattern is normal. No air-fluid levels are seen. No abnormal masses, calcifications, or organomegaly is seen. The visualiz ed lower lungs are clear. No evidence of free intraperitoneal gas. The osseous structures are unremar kable. CONCLUSION: No acute findings. Mild constipation. Electronically signed by: Yehuda La MD 05/15/2018 8:33 PM EDT
--- NOTE | 2018-05-15 20:36 | XR ---
EXAM DATE: 05/15/2018 8:33 PM EDT AGE/SEX: 83 years / Male INDICATIONS: Constipation and abdominal pain. CLINICAL DATA: This is the patient's initial encounter. Patient reports that signs and symptoms have been present for 1 week and indicates a pain score of 9/10. MEDICAL/SURGICAL HISTORY: None. None. COMPARISON: [facility] [place], CHEST 2V PA&LAT, 05/11/2018. . FINDINGS: A single AP view of the chest demonstrates the lungs to be symmetrically aerated without evidence of mass, infiltrate or effusion. Osseous structures are intact. Aorta is calcified. Cardiomegaly is no valentino. CONCLUSION: Cardiomegaly and atherosclerosis. Electronically signed by: Davis Ledbetter MD 05/15/2018 8:35 PM EDT
[2018-05-15 20:37] LABS: Creatine Kinase MB 3.4 ng/mL (0.5-3.6)
--- NOTE | 2018-05-15 21:38 | CT ---
EXAM DATE: 05/15/2018 9:32 PM EDT AGE/SEX: 83 years / Male INDICATIONS: Abdominal pain, constipation. Manual relief of fecal impaction. CLINICAL DATA: This is the patient's initial encounter. Patient reports that signs and symptoms have been present for 1 day and indicates a pain score of 10/10. MEDICAL/SURGICAL HISTORY: Hypertension. None. RADIATION DOSE: 6.64 CTDI (mGy) COMPARISON: [facility] [place], CT ABDOMEN & PELVIS W CONTRAST, 05/06/2018. . TECHNIQUE: Multiple contiguous axial images were obtained through the abdomen. Images were obtained using multiple row detector helical technique. Using automated exposure control and adjustment of the mA and/or kV according to patient size, radiation dose was kept as low as reasonably achievable to o btain optimal diagnostic quality images. DICOM format image data is available electronically for rev iew and comparison. FINDINGS: There is some dependent atelectasis at the lung bases. No significant effusion. Heart size mildly enl arged. Dense coronary calcifications. No acute findings in the liver, spleen, adrenals, kidneys or pancreas. Kidneys are mildly atrophic. There is mild constipation. No bowel obstruction. No free fluid or free air. No acute bony abnormalit ies. CONCLUSION: 1. No acute findings. Mild colonic constipation. 2. Severe coronary calcifications. Mild fatty liver. Dependent atelectasis in the lungs. Electronically signed by: Yehuda La MD 05/15/2018 9:36 PM EDT
[2018-05-15] MEDS ORDERED: Bisacodyl 10 MG Supp RECTAL PRN (22:35)
[2018-05-15 23:06] LABS: Bilirubin,Urine Negative (Negative); Clarity,Urine Clear (Clear); Color,Urine Yellow (Yellw/Straw); Glucose,Urine (UA) Negative (Negative); Leukocyte Esterase,Urine Negative (Negative); Mucus,Urine Few /lpf (Occasional); Nitrite,Urine Negative (Negative); Specific Gravity,Urine 1.013 (1.002-1.035)
[2018-05-15] MEDS: Sod Chloride 0.9% Inj 1,000 ML IV.CONT SCH (23:59)
[2018-05-16] MEDS: Carvedilol 12.5 MG Tablet PO SCH ×3 (00:03→22:01)
[2018-05-16] MEDS: Sod Chloride 0.9% Inj 1,000 ML IV.CONT SCH ×2 (01:29→22:04)
[2018-05-16] MEDS ORDERED: Sod Phosphate/Sod Biphosphate (Adult) Enema 133 ML Bottle RECTAL ONE (01:52)
[2018-05-16] MEDS ORDERED: Senna/Docusate Sodium 8.6/50 MG Tablet PO ONE (01:52)
--- NOTE | 2018-05-16 02:01 | P.HPIM ---
History of Present Illness Primary Care Physician: Nicolás Espinoza MD History of Present Illness: Over the phone Sami principal network architect used, however severely limited history due to severe hard of hearing and patient without hearing aid. 83-year-old male with recent admission for non-ST elevation OR for which patient is undergoing medical treatment only, as well as suspected GI bleed without colonoscopy managed on PPI. Patient presents with a one-week history of constipation. He apparently tried to use a spoon to disimpact himself and subsequently developed hematochezia which prompted presentation to the ER. Patient reports having bilateral lower abdominal discomfort which apparently started today.. He denies any chest pain or shortness of breath. Review of Systems All other systems reviewed negative except as stated in HPI PMFSH - History History Provided By: Family Member - Medical History Medical History: Medical History (Last Reviewed 05/16/18 @ 01:55 by Edson Romero MD) Non-STEMI (non-ST elevated myocardial infarction) HTN (hypertension) Hypercholesterolemia Upper GI bleed - Surgical History Surgical History: Surgical History (Last Reviewed 05/16/18 @ 01:55 by Edson Romero MD) No history of previous surgery - Family History Family History: Family History (Last Reviewed 05/16/18 @ 01:55 by Edson Romero MD) Other Family history normal - Social History I have reviewed the patient's Social History: Yes - Tobacco History Second Hand Smoke Exposure: No Smoking Status: Never smoker Tobacco Type: Cigarettes - Alcohol History How Often Do You Have a Drink Containing Alcohol: Never - Substance Use History Substance History: No History of Abuse - Travel History Recent Travel in the [place] Within the Last 8 Weeks: No Recent Travel Out of the Country Within the Last 8 Weeks: No - Immunization History Tetanus Immunization: Unsure Medications and Allergies Active Medications: Active Medications Al Hydroxide/Mg Hydroxide (Milk Of Magnesia Liq) 30 ml PO Q12H PRN PRN Reason: Mild Constipation Atorvastatin Calcium (Lipitor) 10 mg PO HS SHANIA Bisacodyl (Dulcolax Supp) 10 mg RECTAL DAILY PRN PRN Reason: SEVERE CONSITIPATION Carvedilol (Coreg) 12.5 mg PO BID SHANIA Last Admin: 05/16/18 00:03 Dose: 12.5 mg Hydralazine HCl (Apresoline) 25 mg PO TID SHANIA Sodium Chloride (Ns Inj) 1,000 mls @ 125 mls/hr IV.CONT .Q8H [facility] Stop: 05/16/18 03:14 Last Infusion: 05/16/18 00:23 Dose: Infused Sodium Chloride (Ns Inj) 1,000 mls @ 50 mls/hr IV.CONT .Q20H [facility] Last Admin: 05/16/18 01:29 Dose: 50 mls/hr Isosorbide Mononitrate (Imdur) 30 mg PO DAILY@0700 [facility] Lactulose (Lactulose Liq) 30 ml PO DAILY PRN PRN Reason: SEVERE CONSITIPATION Ondansetron HCl (Zofran Inj) 4 mg IV.PUSH Q6H PRN PRN Reason: NAUSEA OR VOMITING Pantoprazole Sodium (Protonix) 40 mg PO BID [facility] Senna/Docusate Sodium (Pauline-Colace) 1 tab PO BID [facility] Sennosides (Senokot) 17.2 mg PO Q12H PRN PRN Reason: Moderate Constipation Sodium Chloride (Ns Flush) 2 ml IV.FLUSH PRN PRN PRN Reason: FLUSH AFTER USING IV ACCESS Allergies Allergy/AdvReac Type Severity Reaction Status Date / Time No Known Allergies Allergy Verified 05/15/18 18:00 Exam Vital signs: Vital Signs 05/15/18 17:54 05/15/18 18:00 05/15/18 19:49 Temperature 97.9 F Pulse Rate 74 66 75 Respiratory Rate 19 18 16 Blood Pressure 141/63 H 127/60 150/70 H Pulse Oximetry 95 96 100 05/16/18 00:05 Temperature Pulse Rate 71 Respiratory Rate 16 Blood Pressure 132/78 Pulse Oximetry Intake & Output 05/15/18 05/15/18 05/16/18 06:59 18:59 06:59 Intake Total 1000 / 1000 Balance 1000 / 1000 Weight 52.163 kg Intake: IV 1000 / 1000 NS Inj 1,000 ML @ 125 mls/hr IV 1000 / 1000 .CONT .Q8H [facility] Rx#:[id number] Narrative: GENERAL: Patient sitting up in bed. Appears comfortable. Extremely hard of hearing. agreeable. SKIN: Warm and dry. HEAD: Atraumatic. Normocephalic. EYES: Pupils equal and round. No scleral icterus. No injection or drainage. ENT: No nasal bleeding or discharge. Mucous membranes pink and moist. NECK: Trachea midline. No JVD. CARDIOVASCULAR: Regular rate and rhythm. RESPIRATORY: No accessory muscle use. Clear to auscultation. Breath sounds equal bilaterally. GASTROINTESTINAL: Abdomen soft, non-tender, nondistended. Hepatic and splenic margins not palpable. MUSCULOSKELETAL: Extremities without clubbing, cyanosis, or edema. No obvious deformities. NEUROLOGICAL: Awake and alert. No obvious cranial nerve deficits. Motor grossly within normal limits. Five out of 5 muscle strength in the arms and legs. Normal speech. PSYCHIATRIC: Appropriate mood and affect; insight and judgment normal. Results - Labs CBC & Chem 7: 05/15/18 19:35 05/15/18 19:35 Labs: Short CBC 05/15/18 Range/Units 19:35 WBC 6.2 (4.0-11.0) th/mm3 Hgb 11.0 L (13.0-17.0) gm/dL Hct 33.5 L (39.0-51.0) % Plt Count 167 (150-450) th/mm3 BMP 05/15/18 19:35 Sodium 135 L Potassium 4.1 Chloride 104 Carbon Dioxide 21.7 BUN 33 H Creatinine 1.75 H Calcium 8.0 L Cardiac Enzymes 05/15/18 Range/Units 19:35 Total Creatine Kinase 335 H (39-308) U/L CK-MB (CK-2) 3.4 (0.5-3.6) ng/mL Troponin I 0.03 (0.02-0.05) ng/mL Liver Function 05/15/18 Range/Units 19:35 Total Bilirubin 0.3 (0.2-1.0) mg/dL AST 27 (15-37) U/L ALT 26 (12-78) U/L Alkaline Phosphatase 48 (45-117) U/L Albumin 3.2 L (3.4-5.0) g/dL Urine 05/15/18 Range/Units 22:55 Urine Color Yellow (Yellw/Straw) Urine Clarity Clear (Clear) Urine pH 5.0 (5.0-8.5) Ur Specific Mustang 1.013 (1.002-1.035) Urine Protein Negative (Neg-Trace) mg/dL Urine Glucose (UA) Negative (Negative) mg/dL - Imaging Impressions Abdomen X-Ray 05/15/18 19:11 CONCLUSION: No acute findings. Mild constipation. Abdomen/Pelvis CT 05/15/18 19:11 CONCLUSION: 1. No acute findings. Mild colonic constipation. 2. Severe coronary calcifications. Mild fatty liver. Dependent atelectasis in the lungs. Chest X-Ray 05/15/18 19:11 CONCLUSION: Cardiomegaly and atherosclerosis. Caprini VTE Risk Assessment Caprini VTE Risk Assessment: Moderate/High Risk (score >= 2) Caprini Risk Assessment Model: Point Value = 1 Point Value = 2 Point Value = 3 Point Value = 5 Age 41-60 Minor surgery BMI > 25 kg/m2 Swollen legs Varicose veins or History of unexplained or recurrent spontaneous Oral contraceptives or hormone replacement Sepsis (< 1 month) Serious lung disease, including pneumonia (< 1 month) Abnormal pulmonary function Acute myocardial infarction Congestive heart failure (< 1 month) History of inflammatory bowel disease Medical patient at bed rest Age 61-74 Arthroscopic surgery Major open surgery (> 45 min) Laparoscopic surgery (> 45 min) Malignancy Confined to bed (> 72 hours) Immobilizing plaster cast Central venous access Age >= 75 History of VTE Family history of VTE Factor V Leiden Prothrombin 29612A Lupus anticoagulant Anticardiolipin antibodies Elevated serum homocysteine Heparin-induced thrombocytopenia Other congenital or acquired thrombophilia Stroke (< 1 month) Elective arthroplasty Hip, pelvis, or leg fracture Acute spinal cord injury (< 1 month) Prophylaxis Regimen: Total Risk Factor Score Risk Level Prophylaxis Regimen 0-1 Low Early ambulation 2 Moderate Order ONE of the following: *Sequential Compression Device (SCD) *Heparin 5000 units SQ BID 3-4 Higher Order ONE of the following medications: *Heparin 5000 units SQ TID *Enoxaparin/Lovenox 40 mg SQ daily (WT < 150 kg, CrCl > 30 mL/min) *Enoxaparin/Lovenox 30 mg SQ daily (WT < 150 kg, CrCl > 10-29 mL/min) *Enoxaparin/Lovenox 30 mg SQ BID (WT < 150 kg, CrCl > 30 mL/min) AND/OR *Sequential Compression Device (SCD) 5 or more Highest Order ONE of the following medications: *Heparin 5000 units SQ TID (Preferred with Epidurals) *Enoxaparin/Lovenox 40 mg SQ daily (WT < 150 kg, CrCl > 30 mL/min) *Enoxaparin/Lovenox 30 mg SQ daily (WT < 150 kg, CrCl > 10-29 mL/min) *Enoxaparin/Lovenox 30 mg SQ BID (WT < 150 kg, CrCl > 30 mL/min) AND *Sequential Compression Device (SCD) Assessment and Plan - Plan //Acute hematochezia //History of suspected GI bleed without endoscopy -Likely current case of hematochezia is secondary to injury from spoon. ER physician has examined with no lacerations or punctures noted. -Continue on PPI. -Hemoglobin 11.0 from baseline of 12.2. Monitor. GI consulted. Follow-up recommendations. Appreciate assistance. //History of suspected coronary artery disease //History of hypertension //History of CHF //History of hyperlipidemia -Blood pressure acceptable in the 150s on admission. Continue home medications. Continue to monitor //Nausea. Resolved after Zofran. Lipase is elevated, however patient does not have any epigastric tenderness. Will be on IV fluids. Continue to monitor. GI will be consulted as above. //Chronic kidney disease stage III. Creatinine 1.75 around previous baseline. Monitor. Discussed Condition With: Patient, nurse, ED physician.
[2018-05-16 06:33] LABS: Alanine Aminotransferase 22 U/L (12-78); Albumin 2.9 g/dL (3.4-5.0); Anion Gap 8 meq/L (5-15); Aspartate Aminotransferase 19 U/L (15-37); Blood Urea Nitrogen 26 mg/dL (7-18); Calcium 7.8 mg/dL (8.5-10.1); Carbon Dioxide 24.4 meq/L (21.0-32.0); Chloride 108 meq/L (98-107); Glomerular Filtration Rate 47 mL/min (>89); Glucose,Random 117 mg/dL (74-106); Potassium 4.1 meq/L (3.5-5.1); Sodium 140 meq/L (136-145)
[2018-05-16 06:35] LABS: Alkaline Phosphatase 42 U/L (45-117); Total Protein 6.1 g/dL (6.4-8.2)
[2018-05-16] MEDS: Isosorbide Mononitrate 30 MG ER 24HR Tablet (Imdur) PO SCH (07:44)
[2018-05-16] MEDS: hydrALAZINE 25 MG Tablet PO SCH ×3 (09:16→19:18)
[2018-05-16] MEDS: Senna/Docusate Sodium 8.6/50 MG Tablet PO SCH ×2 (09:18→22:02)
[2018-05-16] MEDS: Polyethylene Glycol 3350 17 GM Packet PO SCH (09:18)
--- NOTE | 2018-05-16 10:51 | P.CONGI ---
History of Present Illness Consult date: 05/16/18 Consult reason: Rectal bleeding possibly related to trauma, constipation Chief complaint: GI Bleed History of Present Illness: 83-year-old male who was just discharged from the hospital this past Monday, 3 days ago. This is patient's third admission within a months period of time and GI was consulted initially to evaluate for any GI bleeding and possible coffee- ground emesis. During patient's past 2 hospital stays no GI bleed has been noted and hemoglobin has been stable between 11 and 12. Patient was also evaluated per cardiology for his chest pain but refused any GI procedures as well as cardiac catheterization. On patient's second admission it was felt that he was a moderate cardiac risk for any GI procedures but if needed, we could consider. This admission according to the record and the patient's daughter patient had constipation and was attempting to disimpact himself with a spoon. There was some rectal bleeding and gastroenterology was consulted again to monitor patient's rectal bleeding and any GI needs. According to staff patient did have soft brown bowel movement this a.m. and a very minimal amount of bright red blood was noted on stool. Patient is calm, resting with his eyes closed and denies any shortness of breath, chest pain, nausea vomiting , or abdominal pain. <Ophelia Lozano - Last Filed: 05/16/18 10:41> Review of Systems All other systems reviewed negative except as stated in HPI <Ophelia Lozano - Last Filed: 05/16/18 10:41> PMFSH - History History Provided By: Family Member - Medical History Medical History: Medical History (Last Reviewed 05/16/18 @ 01:55 by Edson Romero MD) Non-STEMI (non-ST elevated myocardial infarction) HTN (hypertension) Hypercholesterolemia Upper GI bleed - Surgical History Surgical History: Surgical History (Last Reviewed 05/16/18 @ 01:55 by Edson Romero MD) No history of previous surgery - Family History Family History: Family History (Last Reviewed 05/16/18 @ 01:55 by Edson Romero MD) Other Family history normal - Tobacco History Second Hand Smoke Exposure: No Smoking Status: Never smoker Tobacco Type: Cigarettes - Alcohol History How Often Do You Have a Drink Containing Alcohol: Never - Substance Use History Substance History: No History of Abuse - Travel History Recent Travel in the [place] Within the Last 8 Weeks: No Recent Travel Out of the Country Within the Last 8 Weeks: No - Immunization History Tetanus Immunization: Unsure <Ophelia Lozano - Last Filed: 05/16/18 10:41> - Medical History Medical History: Medical History (Last Reviewed 05/16/18 @ 01:55 by Edson Romero MD) Non-STEMI (non-ST elevated myocardial infarction) HTN (hypertension) Hypercholesterolemia Upper GI bleed - Surgical History Surgical History: Surgical History (Last Reviewed 05/16/18 @ 01:55 by Edson Romero MD) No history of previous surgery - Family History Family History: Family History (Last Reviewed 05/16/18 @ 01:55 by Edson Romero MD) Other Family history normal <Faisal Navarrete - Last Filed: 05/16/18 13:20> Medications and Allergies Active Medications: Active Medications Al Hydroxide/Mg Hydroxide (Milk Of Magnesia Liq) 30 ml PO Q12H PRN PRN Reason: Mild Constipation Atorvastatin Calcium (Lipitor) 10 mg PO HS [facility] Bisacodyl (Dulcolax Supp) 10 mg RECTAL DAILY PRN PRN Reason: SEVERE CONSITIPATION Carvedilol (Coreg) 12.5 mg PO BID [facility] Last Admin: 05/16/18 09:17 Dose: 12.5 mg Hydralazine HCl (Apresoline) 25 mg PO TID [facility] Last Admin: 05/16/18 09:16 Dose: 25 mg Sodium Chloride (Ns Inj) 1,000 mls @ 50 mls/hr IV.CONT .Q20H [facility] Last Admin: 05/16/18 01:29 Dose: 50 mls/hr Isosorbide Mononitrate (Imdur) 30 mg PO DAILY@0700 [facility] Last Admin: 05/16/18 07:44 Dose: 30 mg Lactulose (Lactulose Liq) 30 ml PO DAILY PRN PRN Reason: SEVERE CONSITIPATION Ondansetron HCl (Zofran Inj) 4 mg IV.PUSH Q6H PRN PRN Reason: NAUSEA OR VOMITING Pantoprazole Sodium (Protonix) 40 mg PO BID [facility] Last Admin: 05/16/18 09:16 Dose: 40 mg Polyethylene Glycol (Miralax) 17 gm PO DAILY [facility] Last Admin: 05/16/18 09:18 Dose: Not Given Senna/Docusate Sodium (Pauline-Colace) 1 tab PO BID [facility] Last Admin: 05/16/18 09:18 Dose: Not Given Sennosides (Senokot) 17.2 mg PO Q12H PRN PRN Reason: Moderate Constipation Sodium Chloride (Ns Flush) 2 ml IV.FLUSH PRN PRN PRN Reason: FLUSH AFTER USING IV ACCESS <Ophelia Lozano - Last Filed: 05/16/18 10:41> Active Medications: Active Medications Al Hydroxide/Mg Hydroxide (Milk Of Magnesia Liq) 30 ml PO Q12H PRN PRN Reason: Mild Constipation Atorvastatin Calcium (Lipitor) 10 mg PO HS [facility] Bisacodyl (Dulcolax Supp) 10 mg RECTAL DAILY PRN PRN Reason: SEVERE CONSITIPATION Carvedilol (Coreg) 12.5 mg PO BID [facility] Last Admin: 05/16/18 09:17 Dose: 12.5 mg Hydralazine HCl (Apresoline) 25 mg PO TID [facility] Last Admin: 05/16/18 09:16 Dose: 25 mg Sodium Chloride (Ns Inj) 1,000 mls @ 50 mls/hr IV.CONT .Q20H [facility] Last Admin: 05/16/18 01:29 Dose: 50 mls/hr Isosorbide Mononitrate (Imdur) 30 mg PO DAILY@0700 [facility] Last Admin: 05/16/18 07:44 Dose: 30 mg Lactulose (Lactulose Liq) 30 ml PO DAILY PRN PRN Reason: SEVERE CONSITIPATION Ondansetron HCl (Zofran Inj) 4 mg IV.PUSH Q6H PRN PRN Reason: NAUSEA OR VOMITING Pantoprazole Sodium (Protonix) 40 mg PO BID [facility] Last Admin: 05/16/18 09:16 Dose: 40 mg Polyethylene Glycol (Miralax) 17 gm PO DAILY [facility] Last Admin: 05/16/18 09:18 Dose: Not Given Senna/Docusate Sodium (Pauline-Colace) 1 tab PO BID [facility] Last Admin: 05/16/18 09:18 Dose: Not Given Sennosides (Senokot) 17.2 mg PO Q12H PRN PRN Reason: Moderate Constipation Sodium Chloride (Ns Flush) 2 ml IV.FLUSH PRN PRN PRN Reason: FLUSH AFTER USING IV ACCESS <Hemaidan,Ammar - Last Filed: 05/16/18 13:20> Allergies Allergy/AdvReac Type Severity Reaction Status Date / Time No Known Allergies Allergy Verified 05/15/18 18:00 Exam Vital signs: Vital Signs 05/15/18 17:54 05/15/18 18:00 05/15/18 19:49 Temperature 97.9 F Pulse Rate 74 66 75 Respiratory Rate 19 18 16 Blood Pressure 141/63 H 127/60 150/70 H Pulse Oximetry 95 96 100 05/16/18 00:05 05/16/18 04:00 05/16/18 07:46 Temperature 98.5 F 98.1 F Pulse Rate 71 82 80 Respiratory Rate 16 18 20 Blood Pressure 132/78 133/60 158/71 H Pulse Oximetry 100 97 Intake & Output 05/15/18 05/16/18 05/16/18 18:59 06:59 18:59 Intake Total 1000 / 1000 Output Total 750 / 750 Balance 250 / 250 Weight 52.163 kg 52.16 kg Intake: IV 1000 / 1000 NS Inj 1,000 ML @ 125 mls/hr IV 1000 / 1000 .CONT .Q8H [facility] Rx#:[id number] Output: Urine Amount (Catheter) 750 / 750 Indwelling Urethral Catheter 750 / 750 Other: Weight On Admission 157.48 kg - Constitutional no acute distress, somnolent - Routine Respiratory Exam Present: accessory muscle use (No shortness of breath at rest patient is able to lie flat) - Routine Cardiovascular Exam Present: S1, S2 - Routine Abdominal Exam Present: soft, normoactive bowel sounds <Ophelia Lozano - Last Filed: 05/16/18 10:41> Vital signs: Vital Signs 05/15/18 17:54 05/15/18 18:00 05/15/18 19:49 Temperature 97.9 F Pulse Rate 74 66 75 Respiratory Rate 19 18 16 Blood Pressure 141/63 H 127/60 150/70 H Pulse Oximetry 95 96 100 05/16/18 00:05 05/16/18 04:00 05/16/18 07:46 Temperature 98.5 F 98.1 F Pulse Rate 71 82 80 Respiratory Rate 16 18 20 Blood Pressure 132/78 133/60 158/71 H Pulse Oximetry 100 97 05/16/18 11:23 Temperature 98.9 F Pulse Rate 76 Respiratory Rate 12 Blood Pressure 117/57 L Pulse Oximetry 94 L Intake & Output 05/15/18 05/16/18 05/16/18 18:59 06:59 18:59 Intake Total 1000 / 1000 Output Total 750 / 750 Balance 250 / 250 Weight 52.163 kg 52.16 kg Intake: IV 1000 / 1000 NS Inj 1,000 ML @ 125 mls/hr IV 1000 / 1000 .CONT .Q8H [facility] Rx#:[id number] Output: Urine Amount (Catheter) 750 / 750 Indwelling Urethral Catheter 750 / 750 Other: Date of Last Bowel Movement 05/16/18 Weight On Admission 157.48 kg <Faisal Navarrete - Last Filed: 05/16/18 13:20> Results - Labs CBC & Chem 7: 05/15/18 19:35 05/16/18 05:18 Labs: Laboratory Results - last 24 hr 05/15/18 05/15/18 05/15/18 19:35 19:35 19:35 WBC 6.2 RBC 3.84 L Hgb 11.0 L Hct 33.5 L MCV 87.4 MCH 28.7 MCHC 32.8 RDW 14.0 Plt Count 167 MPV 8.6 Neut % (Auto) 80.4 H Lymph % (Auto) 10.0 [place] % (Auto) 6.9 Eos % (Auto) 2.1 Baso % (Auto) 0.6 Neut # (Auto) 5.0 Lymph # (Auto) 0.6 L [place] # (Auto) 0.4 Eos # (Auto) 0.1 Baso # (Auto) 0.0 WBC Differential . Differential Comment Auto diff final PT 10.5 INR 1.0 APTT 26.2 Sodium 135 L Potassium 4.1 Chloride 104 Carbon Dioxide 21.7 Anion Gap 9 BUN 33 H Creatinine 1.75 H Estimated GFR 37 L Random Glucose 124 H Lactic Acid Calcium 8.0 L Magnesium 1.9 Total Bilirubin 0.3 AST 27 ALT 26 Alkaline Phosphatase 48 Total Creatine Kinase 335 H CK-MB (CK-2) 3.4 CK-MB (CK-2) % 1.0 Troponin I 0.03 Total Protein 6.8 D Albumin 3.2 L Lipase 778 H Urine Color Urine Clarity Urine pH Ur Specific [place] Urine Protein Urine Glucose (UA) Urine Ketones Urine Occult Blood Urine Nitrate Urine Bilirubin Urine Urobilinogen Ur Leukocyte Esterase Urine RBC Urine WBC Urine Mucus Micro UA Comment Ur Microscopic Review Urine Culture Comments 05/15/18 05/15/18 05/16/18 19:35 22:55 05:18 WBC RBC Hgb Hct MCV MCH MCHC RDW Plt Count MPV Neut % (Auto) Lymph % (Auto) [place] % (Auto) Eos % (Auto) Baso % (Auto) Neut # (Auto) Lymph # (Auto) [place] # (Auto) Eos # (Auto) Baso # (Auto) WBC Differential Differential Comment PT INR APTT Sodium 140 Potassium 4.1 Chloride 108 H Carbon Dioxide 24.4 Anion Gap 8 BUN 26 H Creatinine 1.42 H Estimated GFR 47 L Random Glucose 117 H Lactic Acid 1.0 Calcium 7.8 L Magnesium Total Bilirubin 0.7 AST 19 ALT 22 Alkaline Phosphatase 42 L Total Creatine Kinase CK-MB (CK-2) CK-MB (CK-2) % Troponin I Total Protein 6.1 L D Albumin 2.9 L Lipase Urine Color Yellow Urine Clarity Clear Urine pH 5.0 Ur Specific [place] 1.013 Urine Protein Negative Urine Glucose (UA) Negative Urine Ketones Negative Urine Occult Blood Negative Urine Nitrate Negative Urine Bilirubin Negative Urine Urobilinogen Less than 2 Ur Leukocyte Esterase Negative Urine RBC Less than 1 Urine WBC 1 Urine Mucus Few H Micro UA Comment Culture not ind Ur Microscopic Review Not Reportable Urine Culture Comments Culture not ind - Imaging Impressions Abdomen X-Ray 05/15/18 19:11 CONCLUSION: No acute findings. Mild constipation. Abdomen/Pelvis CT 05/15/18 19:11 CONCLUSION: 1. No acute findings. Mild colonic constipation. 2. Severe coronary calcifications. Mild fatty liver. Dependent atelectasis in the lungs. Chest X-Ray 05/15/18 19:11 CONCLUSION: Cardiomegaly and atherosclerosis. <Ophelia Lozano - Last Filed: 05/16/18 10:41> - Labs CBC & Chem 7: 05/15/18 19:35 05/16/18 05:18 Labs: Laboratory Results - last 24 hr 05/15/18 05/15/18 05/15/18 19:35 19:35 19:35 WBC 6.2 RBC 3.84 L Hgb 11.0 L Hct 33.5 L MCV 87.4 MCH 28.7 MCHC 32.8 RDW 14.0 Plt Count 167 MPV 8.6 Neut % (Auto) 80.4 H Lymph % (Auto) 10.0 [place] % (Auto) 6.9 Eos % (Auto) 2.1 Baso % (Auto) 0.6 Neut # (Auto) 5.0 Lymph # (Auto) 0.6 L [place] # (Auto) 0.4 Eos # (Auto) 0.1 Baso # (Auto) 0.0 WBC Differential . Differential Comment Auto diff final PT 10.5 INR 1.0 APTT 26.2 Sodium 135 L Potassium 4.1 Chloride 104 Carbon Dioxide 21.7 Anion Gap 9 BUN 33 H Creatinine 1.75 H Estimated GFR 37 L Random Glucose 124 H Lactic Acid Calcium 8.0 L Magnesium 1.9 Total Bilirubin 0.3 AST 27 ALT 26 Alkaline Phosphatase 48 Total Creatine Kinase 335 H CK-MB (CK-2) 3.4 CK-MB (CK-2) % 1.0 Troponin I 0.03 Total Protein 6.8 D Albumin 3.2 L Lipase 778 H Urine Color Urine Clarity Urine pH Ur Specific [place] Urine Protein Urine Glucose (UA) Urine Ketones Urine Occult Blood Urine Nitrate Urine Bilirubin Urine Urobilinogen Ur Leukocyte Esterase Urine RBC Urine WBC Urine Mucus Micro UA Comment Ur Microscopic Review Urine Culture Comments 05/15/18 05/15/18 05/16/18 19:35 22:55 05:18 WBC RBC Hgb Hct MCV MCH MCHC RDW Plt Count MPV Neut % (Auto) Lymph % (Auto) [place] % (Auto) Eos % (Auto) Baso % (Auto) Neut # (Auto) Lymph # (Auto) [place] # (Auto) Eos # (Auto) Baso # (Auto) WBC Differential Differential Comment PT INR APTT Sodium 140 Potassium 4.1 Chloride 108 H Carbon Dioxide 24.4 Anion Gap 8 BUN 26 H Creatinine 1.42 H Estimated GFR 47 L Random Glucose 117 H Lactic Acid 1.0 Calcium 7.8 L Magnesium Total Bilirubin 0.7 AST 19 ALT 22 Alkaline Phosphatase 42 L Total Creatine Kinase CK-MB (CK-2) CK-MB (CK-2) % Troponin I Total Protein 6.1 L D Albumin 2.9 L Lipase Urine Color Yellow Urine Clarity Clear Urine pH 5.0 Ur Specific [place] 1.013 Urine Protein Negative Urine Glucose (UA) Negative Urine Ketones Negative Urine Occult Blood Negative Urine Nitrate Negative Urine Bilirubin Negative Urine Urobilinogen Less than 2 Ur Leukocyte Esterase Negative Urine RBC Less than 1 Urine WBC 1 Urine Mucus Few H Micro UA Comment Culture not ind Ur Microscopic Review Not Reportable Urine Culture Comments Culture not ind - Imaging Impressions Abdomen X-Ray 05/15/18 19:11 CONCLUSION: No acute findings. Mild constipation. Abdomen/Pelvis CT 05/15/18 19:11 CONCLUSION: 1. No acute findings. Mild colonic constipation. 2. Severe coronary calcifications. Mild fatty liver. Dependent atelectasis in the lungs. Chest X-Ray 05/15/18 19:11 CONCLUSION: Cardiomegaly and atherosclerosis. <Faisal Navarrete - Last Filed: 05/16/18 13:20> Assessment and Plan - Plan Constipation, bright red rectal bleeding hematochezia after patient attempted to disimpact himself with a spoon at home. Currently patient has very minimal blood noted which seems to be resolving and stool was soft brown this a.m. no melena seen Moderate risk according to cardiology past admission for any GI procedures. No obvious GI bleed has been noted for the past 2 admissions. And hemoglobin has been stable History of fatty liver disease abdominal CT, mild constipation and no obstruction. Elevated lipase level 778, but no abdominal pain and negative CT scan for any pancreatitis. Discussed with daughter this a.m. patient's home situation and monitoring. Daughter works and is in the home working where the patient is. Patient does have observation at home from his son-in-law if he needs something. Labs reviewed which include hemoglobin 11, WBC count 6.2 INR 1 Plan Diet, as tolerated per attending MiraLAX daily for constipation, discussed with daughter the need for stool softeners and and monitor for constipation Consider palliative care consult Monitor labs, recheck lipase in a.m. Monitor for any further rectal bleeding Patient was seen per myself and Dr. Navarrete, note was written on his behalf <Ophelia Lozano - Last Filed: 05/16/18 10:41> - Plan Patient was seen and examined, agree with above note, patient is poor historian because of language barrier, the history was obtained from his daughter Most likely the rectal bleeding related to trauma secondary to trying to disimpact himself but I think the constipation and the pain is related to his pancreatitis Unclear etiology for the pancreatitis workup in progress but the patient does not seem to want any procedure done We will monitor his labs, continue pain management and hydration Consider palliative care <Faisal Navarrete - Last Filed: 05/16/18 13:20>
--- NOTE | 2018-05-16 13:35 | ECG ---
Date Performed: 05/15/2018 Time Performed: 19:28:16 PTAGE: 83 years EKG: Sinus rhythm BORDERLINE LEFT AXIS DEVIATION LEFT VENTRICULAR HYPERTROPHY AND ST-T CHANGE ABNORMAL ECG INTERPRETAT ION BASED ON A DEFAULT AGE OF 40 YEARS PREVIOUS TRACING : 05/12/2018 01.35 DOCTOR: Sameer Rocha Interpretating Date/Time 05/16/2018 13:32:50
--- NOTE | 2018-05-16 22:15 | CT ---
EXAM DATE: 05/16/2018 10:09 PM EDT AGE/SEX: 83 years / Male INDICATIONS: Weakness. CLINICAL DATA: This is the patient's initial encounter. Patient reports that signs and symptoms have been present for 1 day and indicates a pain score of Nonresponsive. MEDICAL/SURGICAL HISTORY: Hypertension. GI bleed. None. RADIATION DOSE: 56.77 CTDI (mGy) COMPARISON: [facility] [place], CT BRAIN W/O CONTRAST, 01/08/2018. . TECHNIQUE: CT of the head without contrast. Using automated exposure control and adjustment of the mA and/or kV according to patient size, radiation dose was kept as low as reasonably achievable to ob tain optimal diagnostic quality images. DICOM format image data is available electronically for revi ew and comparison. FINDINGS: Cerebrum: The ventricles are normal for age. No evidence of midline shift, mass lesion, hemorrhage or acute infarction. No extraaxial fluid collections are seen. Posterior Fossa: The cerebellum and brainstem are intact. The 4th ventricle is midline. The cerebe llopontine angle is unremarkable. Extracranial: The visualized portion of the orbits is intact. Skull: The calvaria is intact. No evidence of skull fracture. CONCLUSION: 1. No acute intracranial abnormalities. Stable chronic white matter ischemic changes. . Electronically signed by: Yehuda La MD 05/16/2018 10:14 PM EDT
[2018-05-17] MEDS: Isosorbide Mononitrate 30 MG ER 24HR Tablet (Imdur) PO SCH (06:54)
[2018-05-17] MEDS: hydrALAZINE 25 MG Tablet PO SCH ×3 (10:42→17:30)
[2018-05-17] MEDS: Carvedilol 12.5 MG Tablet PO SCH ×2 (10:43→20:08)
[2018-05-17] MEDS: Polyethylene Glycol 3350 17 GM Packet PO SCH (10:43)
[2018-05-17] MEDS: Senna/Docusate Sodium 8.6/50 MG Tablet PO SCH ×2 (10:43→20:09)
[2018-05-17] MEDS ORDERED: Magnesium Citrate Liq 300 ML Bottle PO ONE (11:19)
--- NOTE | 2018-05-17 12:55 | P.CONPAL ---
Consult Service: Palliative Care Requesting Physician: Janessa Orozco Reason for Consult: a. To assist with evaluation and management of symptoms including: Constipation , pain b. To assist medical decision maker(s) with: better understanding of current medical conditions; weighing benefits/burdens of medical treatment options; making medical treatment decisions. Primary Care Provider: Nicolás Espinoza MD History of Present Illness History of Present Illness: This is an 83-year old [place] male with a past medical history of coronary artery disease, status post FL, hypertension, hyperlipidemia and upper GI bleed who has had multiple recent hospital admissions on 05/06, 05/11 and 05/15, but refuses all medical interventions. His presenting complaint was constipation which was described as severe with abdominal discomfort and cramping. He had previously been on MiraLAX but the last time he tried it caused vomiting making him uncomfortable taking it again. So instead of taking stool softeners or laxative he tried to disimpact himself with a spoon which caused rectal bleeding and rectal pain. He denies having any chest pain, chest pressure, dyspnea, fevers, cough or urinary symptoms. On his previous visit to the ED on 05/06, he was evaluated by Dr. Youngblood for an NSTEMI and refused cardiac catheterization. He was cleared for EGD to evaluate upper GI bleed but had a noted elevated cardiac risk. He was evaluated by GI and also refused EGD. As there was no recurrent bleeding he was discharged home 05/10 with outpatient follow-up. He came back to the ED on 05/11, complaining of coffee-ground emesis and chest pain, worse from his prior visit when he had had an NSTEMI. He was evaluated by cardiology and, per Dr. Souza's note, again refused cardiac catheterization and discharged home 05/13. He returned to the ED with abdominal pain and rectal bleeding, after trying to disimpact himself with spoon. Diagnostic data on admission * WBC 6.2, hemoglobin 11.0, hematocrit 33.5, platelets 167, PT 10.5, INR 1.0, APTT 26.2, sodium 135, potassium 4.1, BUN 33, creatinine 1.75, calcium 8.0, total creatinine kinase 335, albumin 3.2, lipase 778. * Abdomen x-ray showed mild constipation but no acute findings. * Abdomen CT showed no acute findings with mild colonic constipation. Severe coronary calcifications, mild fatty liver, dependent atelectasis in the lungs. * Chest x-ray shows cardiomegaly and atherosclerosis. * Electrocardiogram shows sinus rhythm with a borderline left axis deviation, left ventricular hypertrophy and mild ST changes He was evaluated by gastroenterology who recommended stool softeners and laxatives. Due to his elevated cardiac risk and known trauma of the rectal canal, as he is currently not bleeding GI is not planning to perform any procedures. The patient had in the past declined any procedures. Cardiology was not consulted on this admission as patient had no cardiac complaints and had previously declined any cardiac intervention. . Function/Cognitive Trajectory: Family states that he is cognitively intact, independent in his ADLs, continues to ride bicycles to the local store for errands, but does not like to take medications. Palliative care has recommended a high fiber diet, increased water intake and a regular dose of prune juice into which the MiraLAX can be mixed until regular stools are achieved. Daughter inquired what else they could do at home in case of recurrent constipation rather than bring him to the hospital, and I did discuss the possibility of assisting him with an enema if needed which are available [id number]. She has requested physician opinion as to his ability to travel to [place] once stabilized from this hospitalization. He wishes to return to [place] where he has a great deal of family to include his . This was addressed to Dr. Navarrete felt the patient was more than capable of making the trip to [place] once his constipation was relieved. . Review of Systems Gastrointestinal: Reports abdominal pain, Reports bright, red blood in stools, Reports constipation PMFSH - History History Provided By: Patient, Family Member - Medical History Medical History: Medical History (Last Reviewed 05/16/18 @ 01:55 by Edson Romero MD) Non-STEMI (non-ST elevated myocardial infarction) HTN (hypertension) Hypercholesterolemia Upper GI bleed - Surgical History Surgical History: Surgical History (Last Reviewed 05/16/18 @ 01:55 by Edson Romero MD) No history of previous surgery - Family History Family History: Family History (Last Reviewed 05/16/18 @ 01:55 by Edson Romero MD) Other Family history normal - Tobacco History Second Hand Smoke Exposure: Yes Tobacco Use In Past 30 Days: No Smoking Status: Former smoker Tobacco Type: Cigarettes - Alcohol History How Often Do You Have a Drink Containing Alcohol: Never - Substance Use History Substance History: No History of Abuse - Travel History Recent Travel in the [place] Within the Last 8 Weeks: No Recent Travel Out of the Country Within the Last 8 Weeks: No - Immunization History Tetanus Immunization: Unsure Medications and Allergies Active Medications: Active Medications Al Hydroxide/Mg Hydroxide (Milk Of Magnesia Liq) 30 ml PO Q12H PRN PRN Reason: Mild Constipation Atorvastatin Calcium (Lipitor) 10 mg PO HS [facility] Last Admin: 05/16/18 22:01 Dose: 10 mg Bisacodyl (Dulcolax Supp) 10 mg RECTAL DAILY PRN PRN Reason: SEVERE CONSITIPATION Carvedilol (Coreg) 12.5 mg PO BID [facility] Last Admin: 05/17/18 10:43 Dose: 12.5 mg Docusate Sodium (Colace) 100 mg PO BID [facility] Hydralazine HCl (Apresoline) 25 mg PO TID [facility] Last Admin: 05/17/18 10:42 Dose: 25 mg Sodium Chloride (Ns Inj) 1,000 mls @ 50 mls/hr IV.CONT .Q20H [facility] Last Admin: 05/16/18 22:04 Dose: 50 mls/hr Isosorbide Mononitrate (Imdur) 30 mg PO DAILY@0700 [facility] Last Admin: 05/17/18 06:54 Dose: 30 mg Lactulose (Lactulose Liq) 30 ml PO DAILY PRN PRN Reason: SEVERE CONSITIPATION Ondansetron HCl (Zofran Inj) 4 mg IV.PUSH Q6H PRN PRN Reason: NAUSEA OR VOMITING Pantoprazole Sodium (Protonix) 40 mg PO BID [facility] Last Admin: 05/17/18 10:42 Dose: 40 mg Polyethylene Glycol (Miralax) 17 gm PO DAILY [facility] Last Admin: 05/17/18 10:43 Dose: 17 gm Senna/Docusate Sodium (Pauline-Colace) 1 tab PO BID [facility] Last Admin: 05/17/18 10:43 Dose: 1 tab Sennosides (Senokot) 17.2 mg PO Q12H PRN PRN Reason: Moderate Constipation Sodium Biphosphate/Sodium Phosphate (Fleets Enema (Adult)) 118 ml RECTAL ONCE PRN PRN Reason: CONSTIPATION Sodium Chloride (Ns Flush) 2 ml IV.FLUSH PRN PRN PRN Reason: FLUSH AFTER USING IV ACCESS Allergies Allergy/AdvReac Type Severity Reaction Status Date / Time No Known Allergies Allergy Verified 05/15/18 18:00 Advance Directives Living Will: No Healthcare Surrogate: No Physical Exam Vital Signs: Vital Signs - 24 hr 05/16/18 14:52 05/16/18 23:26 05/17/18 04:00 Temperature 98.4 F 98.7 F 98.1 F Pulse Rate 78 71 83 Respiratory Rate 12 17 20 Blood Pressure 123/58 L 135/60 132/63 Pulse Oximetry 94 L 95 94 L 05/17/18 07:33 Temperature 98.2 F Pulse Rate 81 Respiratory Rate 18 Blood Pressure 133/65 Pulse Oximetry 94 L I&O: Intake & Output 05/15/18 05/16/18 05/17/18 05/18/18 06:59 06:59 06:59 06:59 Intake Total 1000 / 1000 1000 / 1000 Output Total 850 / 850 600 / 600 Balance 150 / 150 400 / 400 Weight 114 lb 15.89 oz 114 lb 15.89 oz Physical Exam: CONSTITUTIONAL/GENERAL: This is an adequately nourished patient, in no apparent distress. TUBES/LINES/DRAINS: PIV SKIN: No jaundice, rashes, or lesions. Ecchymoses on upper extremities. No wounds seen anteriorly. Skin temperature appropriate. Not diaphoretic. HEAD: Atraumatic. Normocephalic. EYES: Pupils equal and round and reactive. Extraocular motions intact. No scleral icterus. No injection or drainage. Fundi not examined. ENT: Hard of hearing. Nose without bleeding or purulent drainage. Throat without visible erythema, exudates, masses, or lesions. NECK: Trachea midline. Supple, nontender. No palpable thyroid enlargement or nodularity. CARDIOVASCULAR: Regular rate and rhythm without murmurs, gallops, or rubs. No JVD. Peripheral pulses symmetric. RESPIRATORY/CHEST: Symmetric, unlabored respirations. Clear to auscultation. Breath sounds equal bilaterally. No wheezes, rales, or rhonchi. GASTROINTESTINAL: Abdomen soft, non-tender, nondistended. No hepato-splenomegaly , or palpable masses. No guarding. Bowel sounds present. GENITOURINARY: Without palpable bladder distension. MUSCULOSKELETAL: Extremities without clubbing, cyanosis, or edema. No joint tenderness or effusion noted. No calf tenderness. No mottling or clubbing. LYMPHATICS: No palpable cervical or supraclavicular adenopathy. NEUROLOGICAL: Lethargic sleeping possible. Moves all extremities. PSYCHIATRIC: No obvious anxiety/depression. no apparent hallucinations or other psychotic thought process. . Diagnostic Tests Laboratory: Laboratory Results - last 72 hr 05/15/18 05/15/18 05/15/18 19:35 19:35 19:35 WBC 6.2 RBC 3.84 L Hgb 11.0 L Hct 33.5 L MCV 87.4 MCH 28.7 MCHC 32.8 RDW 14.0 Plt Count 167 MPV 8.6 Neut % (Auto) 80.4 H Lymph % (Auto) 10.0 [place] % (Auto) 6.9 Eos % (Auto) 2.1 Baso % (Auto) 0.6 Neut # (Auto) 5.0 Lymph # (Auto) 0.6 L [place] # (Auto) 0.4 Eos # (Auto) 0.1 Baso # (Auto) 0.0 WBC Differential . Differential Comment Auto diff final PT 10.5 INR 1.0 APTT 26.2 Sodium 135 L Potassium 4.1 Chloride 104 Carbon Dioxide 21.7 Anion Gap 9 BUN 33 H Creatinine 1.75 H Estimated GFR 37 L Random Glucose 124 H Lactic Acid Calcium 8.0 L Magnesium 1.9 Total Bilirubin 0.3 AST 27 ALT 26 Alkaline Phosphatase 48 Total Creatine Kinase 335 H CK-MB (CK-2) 3.4 CK-MB (CK-2) % 1.0 Troponin I 0.03 Total Protein 6.8 D Albumin 3.2 L Lipase 778 H Urine Color Urine Clarity Urine pH Ur Specific [place] Urine Protein Urine Glucose (UA) Urine Ketones Urine Occult Blood Urine Nitrate Urine Bilirubin Urine Urobilinogen Ur Leukocyte Esterase Urine RBC Urine WBC Urine Mucus Micro UA Comment Ur Microscopic Review Urine Culture Comments 05/15/18 05/15/18 05/16/18 19:35 22:55 05:18 WBC RBC Hgb Hct MCV MCH MCHC RDW Plt Count MPV Neut % (Auto) Lymph % (Auto) [place] % (Auto) Eos % (Auto) Baso % (Auto) Neut # (Auto) Lymph # (Auto) [place] # (Auto) Eos # (Auto) Baso # (Auto) WBC Differential Differential Comment PT INR APTT Sodium 140 Potassium 4.1 Chloride 108 H Carbon Dioxide 24.4 Anion Gap 8 BUN 26 H Creatinine 1.42 H Estimated GFR 47 L Random Glucose 117 H Lactic Acid 1.0 Calcium 7.8 L Magnesium Total Bilirubin 0.7 AST 19 ALT 22 Alkaline Phosphatase 42 L Total Creatine Kinase CK-MB (CK-2) CK-MB (CK-2) % Troponin I Total Protein 6.1 L D Albumin 2.9 L Lipase Urine Color Yellow Urine Clarity Clear Urine pH 5.0 Ur Specific [place] 1.013 Urine Protein Negative Urine Glucose (UA) Negative Urine Ketones Negative Urine Occult Blood Negative Urine Nitrate Negative Urine Bilirubin Negative Urine Urobilinogen Less than 2 Ur Leukocyte Esterase Negative Urine RBC Less than 1 Urine WBC 1 Urine Mucus Few H Micro UA Comment Culture not ind Ur Microscopic Review Not Reportable Urine Culture Comments Culture not ind 05/17/18 04:42 WBC RBC Hgb Hct MCV MCH MCHC RDW Plt Count MPV Neut % (Auto) Lymph % (Auto) [place] % (Auto) Eos % (Auto) Baso % (Auto) Neut # (Auto) Lymph # (Auto) [place] # (Auto) Eos # (Auto) Baso # (Auto) WBC Differential Differential Comment PT INR APTT Sodium Potassium Chloride Carbon Dioxide Anion Gap BUN Creatinine Estimated GFR Random Glucose Lactic Acid Calcium Magnesium Total Bilirubin AST ALT Alkaline Phosphatase Total Creatine Kinase CK-MB (CK-2) CK-MB (CK-2) % Troponin I Total Protein Albumin Lipase 299 Urine Color Urine Clarity Urine pH Ur Specific [place] Urine Protein Urine Glucose (UA) Urine Ketones Urine Occult Blood Urine Nitrate Urine Bilirubin Urine Urobilinogen Ur Leukocyte Esterase Urine RBC Urine WBC Urine Mucus Micro UA Comment Ur Microscopic Review Urine Culture Comments Result Diagrams: 05/15/18 19:35 05/16/18 05:18 Imaging: Abdomen X-Ray 05/15/18 19:11 CONCLUSION: No acute findings. Mild constipation. Abdomen/Pelvis CT 05/15/18 19:11 CONCLUSION: 1. No acute findings. Mild colonic constipation. 2. Severe coronary calcifications. Mild fatty liver. Dependent atelectasis in the lungs. Chest X-Ray 05/15/18 19:11 CONCLUSION: Cardiomegaly and atherosclerosis. Head CT 05/16/18 00:00 CONCLUSION: 1. No acute intracranial abnormalities. Stable chronic white matter ischemic changes. . Patient/Family Conference Present at Family Conference: Spoke with the daughter at bedside and reviewed palliative care purpose and focus as well as the below listed items. Reviewed CODE STATUS and after discussion with her brother via telephone, they determined that the patient wishes to be a DO NOT RESUSCITATE status. [place] DNR was completed, signed and placed in the chart. CODE STATUS changed to reflect patient's wishes. . Issues Discussed: * Palliative care role, purpose, approach * Additional medical, psychosocial, and spiritual history * Patients general health, functional status, and cognitive changes in the months leading up to the current hospitalization * Patient/family understanding of the current medical problems * Patient/family understanding of prognosis * Patients goals of care as best understood from advance directives and/or conversations and/or values * Current medical treatment options and benefits/burdens of those options * Likely scenarios comparing ongoing aggressive care with a transition to comfort measures only * Questions answered to the best of my ability * Palliative care contact information provided Assessment and Plan Pertinent Non-Medical Issues: Psychosocial: Born in [place], 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 He is and his lives in [place]. They are but not legally . Reportedly has 10 children. Spiritual: Strict Sikhism [place]. Legal: No advance directives. Ethical issues impacting care: Language barrier. Important Contacts: Son: Armaan Castro Daughter: Brittney Castro Son-in-law: Zhao Nephew: Corbin . Prognosis: His prognosis is guarded. He is 83 with suspected severe coronary artery disease based on imaging showing heavy calcifications and recent FL. He is noncompliant with his medications and overall very active and has a good quality of life at home. His recent GI bleed looks to have been precipitated by trying to disimpact himself with a spoon but is currently not bleeding. He remains at elevated risk of a coronary event, however no workup can be completed due to renal insufficiency and the patient's refusal to undergo procedure. He is at risk for further hospitalizations and decline. . Code Status: No Code DNR Plan: PLAN: Legal decision maker: Per my discussion with the family, the patient is oriented and able to make his own decisions. His is in [place] and unavailable. If patient becomes incapacitated to make decisions, by [place] statutes decision making would fall to the majority of his adult children Goals: Aggressive short of no code CODE STATUS: DO NOT RESUSCITATE SYMPTOMS: * Abdominal pain: [place] to be related to pancreatitis elevated lipase over 700 on admission. Repeat labs showed a normal level the following day and his abdominal pain has resolved. Per the family he does not drink alcohol and the etiology of his pancreatitis is unknown. High-fiber, non-spicy diet has been recommended. * Constipation: Constipation caused by noncompliance with stool softeners and laxatives. Have given dietary instructions to his daughter to increase fluid fiber. Patient is usually very active. Advised daily MiraLAX until stools become loose to maintain regular bowel movements. SUMMARY This is an 83-year-old [place] male with a previously independent and vibrant quality of life, able to ride his bicycle over a mile, clean his own house and make his own meals. He was admitted this time with a rectal bleed caused by a foreign object in the anus during an attempt to disimpact. He is receiving laxatives and is currently having stools. He will likely be discharged home soon as at this time he continues to refuse invasive procedures and wishes to go home. There is no clinical testing that establishes an end- stage diagnosis, therefore making him ineligible for hospice. There is no cardiac catheterization or echocardiogram to evaluate the severity of any suspected heart disease and his only other history is hypertension. Appreciation Thank you for the opportunity to participate in the care of Luz Maria Castro. Attestation Attestation: To help prompt me to consider important information that might be impacting today's encounter and assessment, information from prior notes written by myself or my colleagues may have been "brought forward" into today's note. My signature on this note, however, is an attestation that I personally performed the exam, history, and/or decision-making noted today, and, unless otherwise indicated, the interactions with patient, family, and staff as well as the review of records all occurred today. I also attest that the listed assessment and stated plan reflect my best clinical judgment today based on the combination of historical information, prior notes, and today's exam/ interactions. When time spent is documented, it refers only to time spent today by the signer, or if indicated, combined time spent today by collaborating physician/nurse practitioner. .
--- NOTE | 2018-05-17 13:04 | P.PNGI ---
Subjective Interval history: Patient sitting up in bed drinking citrate of magnesia. Denies abdominal pain, no reported bleeding Physical Exam Vital signs: Vital Signs 05/16/18 14:52 05/16/18 23:26 05/17/18 04:00 Temperature 98.4 F 98.7 F 98.1 F Pulse Rate 78 71 83 Respiratory Rate 12 17 20 Blood Pressure 123/58 L 135/60 132/63 Pulse Oximetry 94 L 95 94 L 05/17/18 07:33 05/17/18 12:00 Temperature 98.2 F 97.9 F Pulse Rate 81 66 Respiratory Rate 18 18 Blood Pressure 133/65 145/68 H Pulse Oximetry 94 L 98 Intake & Output 05/16/18 05/17/18 05/17/18 18:59 06:59 18:59 Intake Total 1000 / 1000 Output Total 600 / 600 Balance 400 / 400 Weight 52.16 kg Intake: IV 1000 / 1000 NS Inj 1,000 ML @ 50 mls/hr IV. 1000 / 1000 CONT .Q20H SHANIA Rx#:[id number] Output: Urine 600 / 600 Other: Date of Last Bowel Movement 05/16/18 05/16/18 # Bowel Movements 3 - Constitutional no acute distress - Routine HEENT Exam Head: Present: normocephalic - Routine Respiratory Exam Present: CTA bilaterally. Absent: accessory muscle use - Routine Abdominal Exam Present: soft, normoactive bowel sounds. Absent: tenderness, distended, guarding, firm - Routine Extremities Exam Present: full ROM, pulses intact - Routine Skin Exam Present: dry, warm - Routine Neurological Exam Present: alert - Routine Psychiatric Exam Present: normal affect, cooperative - Urinary Catheter Management Indwelling Urethral Catheter Cath placed during this visit: yes, but has since been removed by the nurse Reason for continuing: Decision to DC catheter Insertion date: 05/16/18 Insertion time: 00:05 Removal date: 05/16/18 Removal time: 11:30 Results - Labs CBC & Chem 7: 05/15/18 19:35 05/16/18 05:18 Laboratory Results - last 24 hr 05/17/18 04:42 Lipase 299 - Imaging Impressions Head CT 05/16/18 00:00 CONCLUSION: 1. No acute intracranial abnormalities. Stable chronic white matter ischemic changes. . Assessment and Plan - Plan Constipation Nurse reports patient had 2 small BMs this a.m., no reported bleeding patient currently drinking 1 bottle of magnesium citrate. 05/15/[address] revealed mild colonic constipation. No nausea or vomiting , lipase 299 Plan -Diet as tolerated -Bowel regimen -MiraLAX/stool softeners -Maintain po hydration -Increase fiber in diet -Monitor for bleeding -Supportive care -Further recommendations to follow This patient has been seen by myself and Dr. Navarrete and this note is written on his behalf - Attending Attestation Dr. Navarrete
[2018-05-17] MEDS ORDERED: Sod Phosphate/Sod Biphosphate (Adult) Enema 133 ML Bottle RECTAL PRN (14:00)
[2018-05-17] MEDS: Sod Chloride 0.9% Inj 1,000 ML IV.CONT SCH (16:10)
--- NOTE | 2018-05-17 18:12 | P.PNIM ---
Subjective Interval history: No reports of further bleeding, per patient. No signs of blood loss on lab testing this morning. No complaints of pain. Patient feels well, however, he still feels he may have constipation. Physical Exam Vital signs: Vital Signs 05/16/18 23:26 05/17/18 04:00 05/17/18 07:33 Temperature 98.7 F 98.1 F 98.2 F Pulse Rate 71 83 81 Respiratory Rate 17 20 18 Blood Pressure 135/60 132/63 133/65 Pulse Oximetry 95 94 L 94 L 05/17/18 12:00 Temperature 97.9 F Pulse Rate 66 Respiratory Rate 18 Blood Pressure 145/68 H Pulse Oximetry 98 Intake & Output 05/16/18 05/17/18 05/17/18 18:59 06:59 18:59 Intake Total 1000 / 1000 1000 / 1000 Output Total 600 / 600 Balance 400 / 400 1000 / 1000 Weight 52.16 kg Intake: IV 1000 / 1000 1000 / 1000 NS Inj 1,000 ML @ 50 mls/hr IV. 1000 / 1000 1000 / 1000 CONT .Q20H SHANIA Rx#:[id number] Output: Urine 600 / 600 Other: Date of Last Bowel Movement 05/16/18 05/16/18 # Bowel Movements 3 Narrative: GENERAL: A&Ox3, no distress, sitting up SKIN: Warm and dry. HEAD: Normocephalic. EYES: Pupils equal and round. No scleral icterus. No injection or drainage. ENT: No nasal bleeding or discharge. Mucous membranes pink and moist. NECK: Trachea midline. No JVD. CARDIOVASCULAR: Regular rate and rhythm. No murmurs. RESPIRATORY: Clear to auscultation. Breath sounds equal bilaterally. GASTROINTESTINAL: Abdomen soft, non-tender, nondistended. Normal bowel sounds. MUSCULOSKELETAL: No edema. No obvious deformities. NEUROLOGICAL: No neurological deficits noted on exam. - Urinary Catheter Management Indwelling Urethral Catheter Cath placed during this visit: yes, but has since been removed by the nurse Reason for continuing: Decision to DC catheter Insertion date: 05/16/18 Insertion time: 00:05 Removal date: 05/16/18 Removal time: 11:30 Results - Labs CBC & Chem 7: 05/15/18 19:35 05/16/18 05:18 Laboratory Results - last 24 hr 05/17/18 04:42 Lipase 299 - Imaging Impressions Head CT 05/16/18 00:00 CONCLUSION: 1. No acute intracranial abnormalities. Stable chronic white matter ischemic changes. . Assessment and Plan - Plan 83 year old male admitted with hematochezia and stool impaction Acute hematochezia GI Bleed Stool Impaction Etiology of bleed from patient's attempts at manual disimpaction Bleeding appears to have stopped Follow H/H Magnesium Citrate provided to promote a BM Fleets enema available as a second line option GI following History of suspected coronary artery disease History of hypertension History of CHF History of hyperlipidemia Continue home medications. Continue to monitor Nausea Resolved CKD III Follow renal function Avoid nephrotoxins DVT Prophylaxis SCDs
[2018-05-17] MEDS: Docusate Sodium 100 MG Capsule PO SCH (20:08)
[2018-05-18] MEDS: Isosorbide Mononitrate 30 MG ER 24HR Tablet (Imdur) PO SCH (06:28)
[2018-05-18] MEDS: hydrALAZINE 25 MG Tablet PO SCH (08:34)
[2018-05-18] MEDS: Senna/Docusate Sodium 8.6/50 MG Tablet PO SCH (08:34)
[2018-05-18] MEDS: Carvedilol 12.5 MG Tablet PO SCH (08:34)
[2018-05-18] MEDS: Docusate Sodium 100 MG Capsule PO SCH (08:34)
[2018-05-18] MEDS: Polyethylene Glycol 3350 17 GM Packet PO SCH (08:35)
[2018-05-18 10:38] LABS: Baso % (Auto) 0.2 % (0.0-2.0); Eos # (Auto) 0.1 th/mm3 (0.0-0.4); Eos % (Auto) 2.2 % (0.0-4.0); Hematocrit 36.7 % (39.0-51.0); Hemoglobin 12.1 gm/dL (13.0-17.0); Lymph # (Auto) 0.5 th/mm3 (1.0-4.8); Lymph % (Auto) 7.4 % (9.0-44.0); Mean Corpuscular Hemoglobin 29.4 pg (27.0-34.0); Mean Corpuscular Volume 89.1 fL (80.0-100.0); Mean Platelet Volume 8.9 fL (7.0-11.0); Mono # (Auto) 0.5 th/mm3 (0.0-0.9); Mono % (Auto) 8.3 % (0.0-8.0); Neut # (Auto) 5.2 th/mm3 (1.8-7.7); Neut % (Auto) 81.9 % (16.0-70.0); Platelet Count 165 th/mm3 (150-450); Red Blood Count 4.11 mil/mm3 (4.50-5.90); Red Cell Distribution Width 13.7 % (11.6-17.2); White Blood Count 6.3 th/mm3 (4.0-11.0)
--- NOTE | 2018-05-18 10:52 | P.PNIM ---
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 83-year-old male with recent admission for non-ST elevation [place] for which patient is undergoing medical treatment only, as well as suspected GI bleed without colonoscopy managed on PPI. Patient presents with a one-week history of constipation. He apparently tried to use a spoon to disimpact himself and subsequently developed hematochezia which prompted presentation to the ER. Patient reports having bilateral lower abdominal discomfort which apparently started today.. He denies any chest pain or shortness of breath. 11-1 No reports of further bleeding, per patient. No signs of blood loss on lab testing this morning. No complaints of pain. Patient feels well, however, he still feels he may have constipation. 11-2 SEEN BY GI NO MORE BLEEDING NEEDS TO HAVE GOOD BM BEFORE CAN BE DISCHARGED TO HOME ADD MIRALAX TODAY Physical Exam Vital signs: Vital Signs 05/17/18 12:00 05/17/18 19:32 05/17/18 23:41 Temperature 97.9 F 97.6 F 97.9 F Pulse Rate 66 78 69 Respiratory Rate 18 18 20 Blood Pressure 145/68 H 126/60 143/69 H Pulse Oximetry 98 95 97 05/18/18 04:00 05/18/18 08:00 Temperature 98.4 F 97.9 F Pulse Rate 72 77 Respiratory Rate 17 20 Blood Pressure 159/71 H 176/77 H Pulse Oximetry 97 96 Intake & Output 05/17/18 05/18/18 05/18/18 18:59 06:59 18:59 Intake Total 1000 / 1000 Balance 1000 / 1000 Intake: IV 1000 / 1000 NS Inj 1,000 ML @ 50 mls/hr IV. 1000 / 1000 CONT .Q20H [facility] Rx#:[id number] Other: Date of Last Bowel Movement 05/16/18 Narrative: GENERAL: A&Ox3, no distress, sitting up SKIN: Warm and dry. HEAD: Normocephalic. EYES: Pupils equal and round. No scleral icterus. No injection or drainage. ENT: No nasal bleeding or discharge. Mucous membranes pink and moist. NECK: Trachea midline. No JVD. CARDIOVASCULAR: Regular rate and rhythm. No murmurs. RESPIRATORY: Clear to auscultation. Breath sounds equal bilaterally. GASTROINTESTINAL: Abdomen soft, non-tender, nondistended. Normal bowel sounds. MUSCULOSKELETAL: No edema. No obvious deformities. NEUROLOGICAL: No neurological deficits noted on exam. - Urinary Catheter Management Indwelling Urethral Catheter Cath placed during this visit: yes, but has since been removed by the nurse Reason for continuing: Decision to DC catheter Insertion date: 05/16/18 Insertion time: 00:05 Removal date: 05/16/18 Removal time: 11:30 Results - Labs CBC & Chem 7: 05/18/18 10:00 05/16/18 05:18 Laboratory Results - last 24 hr 05/18/18 10:00 WBC 6.3 RBC 4.11 L Hgb 12.1 L Hct 36.7 L MCV 89.1 MCH 29.4 MCHC 33.0 RDW 13.7 Plt Count 165 MPV 8.9 Neut % (Auto) 81.9 H Lymph % (Auto) 7.4 L [place] % (Auto) 8.3 H Eos % (Auto) 2.2 Baso % (Auto) 0.2 Neut # (Auto) 5.2 Lymph # (Auto) 0.5 L [place] # (Auto) 0.5 Eos # (Auto) 0.1 Baso # (Auto) 0.0 WBC Differential . Differential Comment Auto diff final - Imaging ITS Impressions Abdomen X-Ray 05/15/18 19:11 CONCLUSION: No acute findings. Mild constipation. Abdomen/Pelvis CT 05/15/18 19:11 CONCLUSION: 1. No acute findings. Mild colonic constipation. 2. Severe coronary calcifications. Mild fatty liver. Dependent atelectasis in the lungs. Chest X-Ray 05/15/18 19:11 CONCLUSION: Cardiomegaly and atherosclerosis. Head CT 05/16/18 00:00 CONCLUSION: 1. No acute intracranial abnormalities. Stable chronic white matter ischemic changes. . - Procedures NONE Assessment and Plan - Plan 83 year old male admitted with hematochezia and stool impaction Acute hematochezia GI Bleed Stool Impaction Etiology of bleed from patient's attempts at manual disimpaction Bleeding appears to have stopped Follow H/H Magnesium Citrate provided to promote a BM Fleets enema available as a second line option GI following ADD MIRALAX DAILY History of suspected coronary artery disease History of hypertension History of CHF History of hyperlipidemia Continue home medications. Continue to monitor Nausea Resolved CKD III Follow renal function Avoid nephrotoxins DVT Prophylaxis SCDs Code Status: DNR Discussed Condition With: RN AND PT Discharge Planning: DC TO HOME TODAY AFTER GOOD BM
[2018-05-18 11:03] LABS: Alanine Aminotransferase 23 U/L (12-78); Anion Gap 8 meq/L (5-15); Aspartate Aminotransferase 22 U/L (15-37); Blood Urea Nitrogen 14 mg/dL (7-18); Carbon Dioxide 26.5 meq/L (21.0-32.0); Chloride 106 meq/L (98-107); Glomerular Filtration Rate 57 mL/min (>89); Glucose,Random 115 mg/dL (74-106); Magnesium 2.1 mg/dL (1.5-2.5); Potassium 3.6 meq/L (3.5-5.1); Sodium 140 meq/L (136-145)
[2018-05-18 11:05] LABS: Alkaline Phosphatase 50 U/L (45-117); Free T4 (Free Thyroxine) 1.26 ng/dL (0.76-1.46); Phosphorus 1.9 mg/dL (2.5-4.9); Thyroid Stimulating Hormone 0.594 uIU/mL (0.358-3.740); Total Protein 6.8 g/dL (6.4-8.2)
--- NOTE | 2018-05-18 11:16 | P.DS ---
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 83-year-old male with recent admission for non-ST elevation [place] for which patient is undergoing medical treatment only, as well as suspected GI bleed without colonoscopy managed on PPI. Patient presents with a one-week history of constipation. He apparently tried to use a spoon to disimpact himself and subsequently developed hematochezia which prompted presentation to the ER. Patient reports having bilateral lower abdominal discomfort which apparently started today.. He denies any chest pain or shortness of breath. 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 83-year-old male with recent admission for non-ST elevation [place] for which patient is undergoing medical treatment only, as well as suspected GI bleed without colonoscopy managed on PPI. Patient presents with a one-week history of constipation. He apparently tried to use a spoon to disimpact himself and subsequently developed hematochezia which prompted presentation to the ER. Patient reports having bilateral lower abdominal discomfort which apparently started today.. He denies any chest pain or shortness of breath. 11-1 No reports of further bleeding, per patient. No signs of blood loss on lab testing this morning. No complaints of pain. Patient feels well, however, he still feels he may have constipation. 11-2 SEEN BY GI NO MORE BLEEDING NEEDS TO HAVE GOOD BM BEFORE CAN BE DISCHARGED TO HOME ADD MIRALAX TODAY DS: Diagnosis - Discharge Diagnosis (1) Constipation Status: Chronic (2) GI bleed Status: Acute (3) GI bleed Status: Acute (4) Hypertension Status: Acute DS: Medications - Discharge Medications Prescriptions: bisacodyl [Bisac-Evac] [address] DAILY PRN #30 ea PRN Reason: Severe Consitipation docusate sodium [DOK] 100 mg PO TID #90 cap lactulose 30 ml PO BID PRN #1800 ml PRN Reason: Severe Consitipation polyethylene glycol 3350 17 gm PO DAILY #1 bottle sennosides-docusate sodium [Senna Plus] 2 tab PO BID #120 tab DS: Summary Hospital Course: History of Present Illness: 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 83-year-old male with recent admission for non-ST elevation [place] for which patient is undergoing medical treatment only, as well as suspected GI bleed without colonoscopy managed on PPI. Patient presents with a one-week history of constipation. He apparently tried to use a spoon to disimpact himself and subsequently developed hematochezia which prompted presentation to the ER. Patient reports having bilateral lower abdominal discomfort which apparently started today.. He denies any chest pain or shortness of breath. 11-1 No reports of further bleeding, per patient. No signs of blood loss on lab testing this morning. No complaints of pain. Patient feels well, however, he still feels he may have constipation. 11-2 SEEN BY GI NO MORE BLEEDING NEEDS TO HAVE GOOD BM BEFORE CAN BE DISCHARGED TO HOME ADD MIRALAX TODAY - Time Spent with Patient Total time spent providing and/or coordinating discharge services: Greater than 30 minutes - Quality: VTE Deep Vein Thrombosis/Pulmonary Embolism Present on Admission: No Exam Vital signs: Vital Signs 05/17/18 12:00 05/17/18 19:32 05/17/18 23:41 Temperature 97.9 F 97.6 F 97.9 F Pulse Rate 66 78 69 Respiratory Rate 18 18 20 Blood Pressure 145/68 H 126/60 143/69 H Pulse Oximetry 98 95 97 05/18/18 04:00 05/18/18 08:00 Temperature 98.4 F 97.9 F Pulse Rate 72 77 Respiratory Rate 17 20 Blood Pressure 159/71 H 176/77 H Pulse Oximetry 97 96 Intake & Output 05/17/18 05/18/18 05/18/18 18:59 06:59 18:59 Intake Total 1000 / 1000 Balance 1000 / 1000 Intake: IV 1000 / 1000 NS Inj 1,000 ML @ 50 mls/hr IV. 1000 / 1000 CONT .Q20H [facility] Rx#:[id number] Other: Date of Last Bowel Movement 05/16/18 Narrative: GENERAL: A&Ox3, no distress, sitting up SKIN: Warm and dry. HEAD: Normocephalic. EYES: Pupils equal and round. No scleral icterus. No injection or drainage. ENT: No nasal bleeding or discharge. Mucous membranes pink and moist. NECK: Trachea midline. No JVD. CARDIOVASCULAR: Regular rate and rhythm. No murmurs. RESPIRATORY: Clear to auscultation. Breath sounds equal bilaterally. GASTROINTESTINAL: Abdomen soft, non-tender, nondistended. Normal bowel sounds. MUSCULOSKELETAL: No edema. No obvious deformities. NEUROLOGICAL: No neurological deficits noted on exam. Results Procedures completed during hospitalization: NONE Completed studies during hospitalization: Laboratory Results WBC 6.3 th/mm3 (4.0-11.0) 05/18/18 10:00 RBC 4.11 mil/mm3 (4.50-5.90) L 05/18/18 10:00 Hgb 12.1 gm/dL (13.0-17.0) L 05/18/18 10:00 Hct 36.7 % (39.0-51.0) L 05/18/18 10:00 MCV 89.1 fL (80.0-100.0) 05/18/18 10:00 MCH 29.4 pg (27.0-34.0) 05/18/18 10:00 MCHC 33.0 % (32.0-36.0) 05/18/18 10:00 RDW 13.7 % (11.6-17.2) 05/18/18 10:00 Plt Count 165 th/mm3 (150-450) 05/18/18 10:00 MPV 8.9 fL (7.0-11.0) 05/18/18 10:00 Neut % (Auto) 81.9 % (16.0-70.0) H 05/18/18 10:00 Lymph % (Auto) 7.4 % (9.0-44.0) L 05/18/18 10:00 [place] % (Auto) 8.3 % (0.0-8.0) H 05/18/18 10:00 Eos % (Auto) 2.2 % (0.0-4.0) 05/18/18 10:00 Baso % (Auto) 0.2 % (0.0-2.0) 05/18/18 10:00 Neut # (Auto) 5.2 th/mm3 (1.8-7.7) 05/18/18 10:00 Lymph # (Auto) 0.5 th/mm3 (1.0-4.8) L 05/18/18 10:00 [place] # (Auto) 0.5 th/mm3 (0.0-0.9) 05/18/18 10:00 Eos # (Auto) 0.1 th/mm3 (0.0-0.4) 05/18/18 10:00 Baso # (Auto) 0.0 th/mm3 (0.0-0.2) 05/18/18 10:00 WBC Differential . 05/18/18 10:00 Differential Comment Auto diff final 05/18/18 10:00 PT 10.5 sec (9.8-11.6) 05/15/18 19:35 INR 1.0 Ratio 05/15/18 19:35 APTT 26.2 sec (24.3-30.1) 05/15/18 19:35 Sodium 140 meq/L (136-145) 05/16/18 05:18 Potassium 4.1 meq/L (3.5-5.1) 05/16/18 05:18 Chloride 108 meq/L (98-107) H 05/16/18 05:18 Carbon Dioxide 24.4 meq/L (21.0-32.0) 05/16/18 05:18 Anion Gap 8 meq/L (5-15) 05/16/18 05:18 BUN 26 mg/dL (7-18) H 05/16/18 05:18 Creatinine 1.42 mg/dL (0.60-1.30) H 05/16/18 05:18 Estimated GFR 47 mL/min (>89) L 05/16/18 05:18 Random Glucose 117 mg/dL (74-106) H 05/16/18 05:18 Lactic Acid 1.0 mmol/L (0.4-2.0) 05/15/18 19:35 Calcium 7.8 mg/dL (8.5-10.1) L 05/16/18 05:18 Magnesium 1.9 mg/dL (1.5-2.5) 05/15/18 19:35 Total Bilirubin 0.7 mg/dL (0.2-1.0) 05/16/18 05:18 AST 19 U/L (15-37) 05/16/18 05:18 ALT 22 U/L (12-78) 05/16/18 05:18 Alkaline Phosphatase 42 U/L (45-117) L 05/16/18 05:18 Total Creatine Kinase 335 U/L (39-308) H 05/15/18 19:35 CK-MB (CK-2) 3.4 ng/mL (0.5-3.6) 05/15/18 19:35 CK-MB (CK-2) % 1.0 % (0.0-4.0) 05/15/18 19:35 Troponin I 0.03 ng/mL (0.02-0.05) 05/15/18 19:35 Total Protein 6.1 g/dL (6.4-8.2) L D 05/16/18 05:18 Albumin 2.9 g/dL (3.4-5.0) L 05/16/18 05:18 Lipase 299 U/L (73-393) 05/17/18 04:42 Urine Color Yellow (Yellw/Straw) 05/15/18 22:55 Urine Clarity Clear (Clear) 05/15/18 22:55 Urine pH 5.0 (5.0-8.5) 05/15/18 22:55 Ur Specific [place] 1.013 (1.002-1.035) 05/15/18 22:55 Urine Protein Negative mg/dL (Neg-Trace) 05/15/18 22:55 Urine Glucose (UA) Negative mg/dL (Negative) 05/15/18 22:55 Urine Ketones Negative mg/dL (Negative) 05/15/18 22:55 Urine Occult Blood Negative (Negative) 05/15/18 22:55 Urine Nitrate Negative (Negative) 05/15/18 22:55 Urine Bilirubin Negative (Negative) 05/15/18 22:55 Urine Urobilinogen Less than 2 mg/dL (Less than 2) 05/15/18 22:55 Ur Leukocyte Esterase Negative (Negative) 05/15/18 22:55 Urine RBC Less than 1 /hpf (0-3) 05/15/18 22:55 Urine WBC 1 /hpf (0-5) 05/15/18 22:55 Urine Mucus Few /lpf (Occasional) H 05/15/18 22:55 Micro UA Comment Culture not ind 05/15/18 22:55 Ur Microscopic Review Not Reportable 05/15/18 22:55 Urine Culture Comments Culture not ind 05/15/18 22:55 Impressions Abdomen X-Ray 05/15/18 19:11 CONCLUSION: No acute findings. Mild constipation. Abdomen/Pelvis CT 05/15/18 19:11 CONCLUSION: 1. No acute findings. Mild colonic constipation. 2. Severe coronary calcifications. Mild fatty liver. Dependent atelectasis in the lungs. Chest X-Ray 05/15/18 19:11 CONCLUSION: Cardiomegaly and atherosclerosis. Head CT 05/16/18 00:00 CONCLUSION: 1. No acute intracranial abnormalities. Stable chronic white matter ischemic changes. . Labs on day of discharge: Labs from last 24 hours 05/18/18 05/18/18 05/18/18 10:00 10:00 10:00 WBC 6.3 RBC 4.11 L Hgb 12.1 L Hct 36.7 L MCV 89.1 MCH 29.4 MCHC 33.0 RDW 13.7 Plt Count 165 MPV 8.9 Neut % (Auto) 81.9 H Lymph % (Auto) 7.4 L [place] % (Auto) 8.3 H Eos % (Auto) 2.2 Baso % (Auto) 0.2 Neut # (Auto) 5.2 Lymph # (Auto) 0.5 L [place] # (Auto) 0.5 Eos # (Auto) 0.1 Baso # (Auto) 0.0 WBC Differential . Differential Comment Auto diff final Sodium Pending Potassium Pending Chloride Pending Carbon Dioxide Pending Anion Gap Pending BUN Pending Creatinine Pending Random Glucose Pending Hemoglobin A1c Pending Calcium Pending Phosphorus Pending Magnesium Pending Total Bilirubin Pending AST Pending ALT Pending Alkaline Phosphatase Pending Total Protein Pending Albumin Pending TSH Pending Free T4 Pending - Impressions ITS Impressions Abdomen X-Ray 05/15/18 19:11 CONCLUSION: No acute findings. Mild constipation. Abdomen/Pelvis CT 05/15/18 19:11 CONCLUSION: 1. No acute findings. Mild colonic constipation. 2. Severe coronary calcifications. Mild fatty liver. Dependent atelectasis in the lungs. Chest X-Ray 05/15/18 19:11 CONCLUSION: Cardiomegaly and atherosclerosis. Head CT 05/16/18 00:00 CONCLUSION: 1. No acute intracranial abnormalities. Stable chronic white matter ischemic changes. . Discharge Plan - Discharge Disposition Patient Disposition: 01 Discharge Home - Discharge Condition Condition: Good - Discharge Order Discharge Orders: Discharge Order (Routine); Ordered 05/18/18 Ordered By: Ad Parmar - Discharge Details Anticipated Discharge Date: 05/18/18 Discharge Comment: DC TODAY AFTER HAS GOOD BM - Physicians Team Primary Care Provider: Nicolás Espinoza Attending Provider: Ad Parmar Other Providers: Faisal Navarrete MD ; Reyes Campbell MD
[2018-05-18 11:37] LABS: Hemoglobin A1c 5.7 % (4.3-6.0)
== END 2018-05-18 14:12 | disposition home or self-care (01) ==
LOC: NEPC 17:49 → NEDA 17:49 → NEPFCDU 05-16 01:06
PROVIDERS: ADMIT Hospitalist; ATTEND Hospitalist